=== PATIENT | female | born 1960 | race Caucasian/White ===

== ENCOUNTER 2016-08-12 01:50 | Inpatient (IN) | payer MEDICARE ==
[~2016-08-12] VITALS: Ht 162.6 cm; Wt 93.0 kg
[2016-08-12] VITALS (23 sets, daily range): BP systolic 99–130; BP diastolic 62–85; Ht 162.6 cm; Wt 93.0 kg
[~2016-08-12 01:50] MED LIST: ABILIFY15 MG PO; ACETAMINOPHEN325 MG PO; ACETAMINOPHEN500 M1 PO; ADVAIR 250/501 DISK INH; CALCIUM 600+D T1 TA1 PO; DALIRESP500 MCG PO; DEPAKOTE250 MG PO; FLUTICASONE PRO16 GM NASAL; HYDROCODONE-APA1 TAB PO; IPRAT-ALBUT 0.5-3 ML UPD; LEVAQUIN750 MG PO; MUCINEX DM ER1 EAC1 PO; PRAVACHOL40 MG PO; PREDNISONE10 MG PO; PRILOSEC20 MG PO; PROVENTIL HFA6.7 GM INH; SINGULAIR10 MG PO; SPIRIVA18 MCG INH; XANAX1 MG PO; ZOLOFT50 MG PO
[2016-08-12 02:32] LABS: BASOPHILS 0.4 % (0.0-2.0); EOSINOPHILS 0.2 % (0-7); HEMATOCRIT 47.7 % (36.0-48.0); IMMATURE GRANULOCYTES 0.4 % (0-5); LYMPHOCYTES 11.9 % (15-50); MCH 30.5 pg (26.0-34.0); MCHC 31.4 g/dL (31.0-37.0); MEAN PLATELET VOLUME 9.1 fL (7.4-10.4); MONOCYTES 7.6 % (2-11); NEUTROPHILS 79.5 % (40-80); PLATELET COUNT 142 10x3/uL (130-400); RBC 4.92 10x6/uL (4.00-5.40); RDW 13.7 % (11.5-14.5); WBC 8.5 10x3/uL (4.8-10.8)
[2016-08-12 02:45] LABS: ALBUMIN 3.3 g/dL (3.4-5.0); ALKALINE PHOSPHATASE 74 U/L (46-116); ALT (SGPT) 14 U/L (10-68); BILIRUBIN - TOTAL 0.45 mg/dL (0.2-1.3); CALC OSMOLALITY 274 mosm/kg (275-300); CALCIUM 9.4 mg/dL (8.5-10.1); CHLORIDE - SERUM 94 mmol/L (98-107); CREATININE - SERUM 0.5 mg/dL (0.6-1.3); GLUCOSE 106 mg/dL (74-106); PROTEIN - SERUM 7.7 g/dL (6.4-8.2); SODIUM 137 mmol/L (136-145); UREA NITROGEN 14 mg/dL (7-18); eGFR NON AFRICAN AMERICAN > 90 mL/min (90-120)
[2016-08-12 03:01] LABS: CKMB 3.1 U/L (0.0-3.6); CREATINE KINASE 84 UL (21-215); TROPONIN-I < 0.017 ng/mL (0.000-0.060)
--- NOTE | 2016-08-12 05:00 | NUR ---
0500: Pt rec'd from ER via STR and transferred to room 2310 x4 RNs and RT at bedside. Pt placed HOB 30 degrees at this time. Pt unable to follow commands. Pupils equal 2mm and sluggish with light stimulus. Pt with frequent coughing with movement. Pt breathing via 8.0fr ETT at 23cm lip line with Vent as per settings. Pt with frequent coughing and setting off vent peak pressure alarms. Diprivan started at this time as per orders to left a/c PIV. Lungs with wheezes and crackles heard throughout LFs with auscultation. MMP. Face red with coughing. In line sx produces small amount of clear sx. S1S2 regular SR 90-100 on CM. PPPx4=bilat. ABD soft with BSx4. OGT placed at this time and position confirmed with 30 cc air bolus and auscultaiton. Placed to LIS with immediate yellow/brown liquid return. 16fr Cummings cath placed at this time with sterile technique with immediate return of 150-200 cc of yellow UOP. Pt remains with bilateral soft wrist restraints to prevent accidental extubation. All monitors established and alarms intact. SR up x2, call light in reach, bed alarm on, and SCDs placed bilat.
[2016-08-12 05:38] LABS: APPEARANCE CLEAR (CLEAR); BILIRUBIN NEGATIVE (NEGATIVE); COLOR YELLOW (YELLOW); GLUCOSE NEGATIVE (NEGATIVE); KETONE NEGATIVE (NEGATIVE); LEUKOCYTE ESTERASE NEGATIVE (NEGATIVE); NITRITE NEGATIVE (NEGATIVE); PROTEIN NEGATIVE (NEGATIVE); UROBILINOGEN NORMAL (NORMAL)
--- NOTE | 2016-08-12 07:15 | NUR ---
REPORT REC'D AND CARE RESUMED, ETT TO VENTILATION AND SECURED, 100 %FIO2, SAT 99%, OGT TO LIWS WITH TRANSLUCENT DRAINAGE TO CANISTER, LT AC PIV WITH PROPOFAL INFUSING AT 50 MCG, NS AT 50 CC/HR, REYNOLDS TO GRAVITY WITH YELLOW DRAINAGE TO TUBING, SCD'S B/L, RESTRAINTS B/L, ASSESSMENT COMPLETE PER FLOWSHEET, ORAL CARE AND SUCTION COMPLETED, REPOSITIONED TO BACK WITH HEELS FLOATED, LOCALIZES PAIN, WILL CONTINUE WITH POC
--- NOTE | 2016-08-12 08:53 | NUR ---
PATIENT IS ON THE VENT AND SEDATED. SHE IS NOT ABLE TO ANSWER QUESTIONS AND THERE IS NO FAMILY HERE TO INTERVIEW. CM TO FOLLOW.
--- NOTE | 2016-08-12 08:55 | NUR ---
PATIENT IS ON THE VENT AND SEDATED. SHE IS NOT ABLE TO ANSWER QUESTIONS AND THERE IS NO FAMILY HERE TO INTERVIEW. TRIED TO CALL HER DAUGHTER, RITA, AT [phone] WHICH WAS NUMBER PROVIDED AND DID NOT GET AN ANSWER. CM TO FOLLOW.
--- NOTE | 2016-08-12 09:00 | NUR ---
AM MEDS GIVEN WITHOUT DIFFICULTY, NO VISITIORS AT THIS TIME
--- NOTE | 2016-08-12 11:00 | NUR ---
DAUGHTER RITA AT BEDSIDE, STATUS UPDATED, MEDICATIONS RECONCILED, COUNSELED WITH DR HENRY, NO OTHER NEEDS AT THIS TIME
--- NOTE | 2016-08-12 12:00 | NUR ---
NO ACUTE CHANGE FROM PREVIOUS ASSESSMENT. VSS, REPOSITIONED TO LEFT SIDE WITH PILLOW PROPPED TO BACK AND HEELS FLOATED
[2016-08-12] MEDS ORDERED: POTASSIUM CHLO10 ME1 PO (12:34)
[2016-08-12] MEDS ORDERED: FUROSEMIDE20 MG PO (12:35)
[2016-08-12] MEDS ORDERED: PROPAFENONE HC150 MG PO (12:36)
--- NOTE | 2016-08-12 12:48 | NUR ---
DAUGHTER HERE FOR VISIT, STATUS UPDATE, MEDICATIONS REVIEW, AND PASSWORD ESTABLISHED, DR HENRY COUNSELED WITH FAMILY.
--- NOTE | 2016-08-12 13:30 | NUR ---
RHYTMOL 150 MG PO GIVEN VIA OGT PER ORDER
--- NOTE | 2016-08-12 15:00 | NUR ---
NO ACUTE CHANGE FROM PREVIOUS ASSESSMENT, VSS, CONITNUES ON VENT IN AC MODE, ORAL CARE AND SUCTION COMPLETED, REPOSITIONED TO RIGHT SIDE WITH PILLOW PROPPED TO BACK AND HEELS FLOATED
--- NOTE | 2016-08-12 16:30 | NUR ---
I AND O'S COMPLETED WITHOUT DIFFICULTY
--- NOTE | 2016-08-12 18:00 | NUR ---
PC FROM SISTER, PASSWORD OBTAINED, STATUS UPDATE GIVEN, VOICES NO OTHER NEEDS AT THIS TIME
--- NOTE | 2016-08-12 18:15 | NUR ---
RT AT BEDSIDE, UPDRAFT GIVEN, VSS, CONTINUES ON AC MODE WITH 40% FIO2, ORAL CARE AND SUCTION COMPLETED, AROUSES TO TACTILE STIMULI, WILL CONTINUE WITH POC
--- NOTE | 2016-08-12 18:33 | NUR ---
PASTOR LANGFORD FROM [facility] AT BEDSIDE, STATUS UPDATED, PRAYED WITH PATIENT, NO OTHER NEEDS AT THIS TIME
--- NOTE | 2016-08-12 19:30 | NUR ---
Assessment complete. See flowsheet. Pt sedated to haroldo 2 with Propofol sedation infusing @ 60mcg/kg/min (32cc/hr) upon entrance into room. Pt does not open eyes or attempt communication. Pupils opened and examined size 4 bilaterally ERRL. Pt does not move extremities. 8.0FR OET tube secure 23cm @ lip line to ventilator set A/C Rate 14 TV 500 FiO2 @ 40% PEEP 5.0. Lung sounds clear to auscultation with diminished lower lobes. HR SR with S1S2 auscultated. All peripheral pulses +2 with capillary refill <3 seconds. Generalized edema noted to all extremitties. Left A/C PIV site CDI no s/s infection or infiltration with NS infusing @ 75cc/hr with Propofol sedation. OGT to LIWS retrieving green gastric content of a small amount. Abdomen obese and soft with BS present to all quadrants. Cummings catheter secure retrieving clear/yellow urine. SCDs secure and turned on. ROM completed to all extremities. Bilat soft wrist restraints applied after pt pulled up in bed and positioned to left side with HOB elevated to 30 degrees and arms/heels bridged. No s/s pain or distress. Oral care completed with mouth moisturizer applied. Diprovan IV tubing change completed. CPOC.
--- NOTE | 2016-08-12 21:30 | NUR ---
PM medications administered. See OCT. Pt repositioned to right side with HOB @ 30 degrees. Arms and heels remain bridged. Oral care completed. VSS. CPOC.
--- NOTE | 2016-08-12 23:30 | NUR ---
Reassessment complete. See flowsheet. Pt remains orally intubated with no ventilator setting changes to note from previous assessment. Propofol sedation infusing @ 60mcg/kg/min with haroldo 2 sedation maintained. NO IVF changes to note. PIV site CDI no s/s infection or infiltration. Lung sounds clear to all renner with diminished lower lobes. HR SR with S1S2 auscultated. All peripheral pulses remain +2 with capillary refill <3 seconds. OGt secure to LIWS. BS remain + to all quadrants. Cummings secure. Pt repositioned to back with HOB @ 30 degrees. Arms and heels bridged. SCDs secure. BILAT soft wrist restraints secured after ROM to all extremities. Generalized edema persists. Linens clean/dry. NO s/s pain or distress. No other changes to note. CPOC.
[2016-08-13] VITALS (24 sets, daily range): BP systolic 92–128; BP diastolic 54–85
--- NOTE | 2016-08-13 01:30 | NUR ---
Pt repositioned to left side. HOB @ 30 degrees. Oral care completed with mouth moisturizer applied. No s/s pain or distress. CPOC.
--- NOTE | 2016-08-13 03:30 | NUR ---
Reassessment complete. See flowsheet. Pt remains sedated to haroldo 2 with NO IVF changes to note from previous assessment. OET tube secure with no VENT setting changes to note. Lung sounds present crackles to all renner with diminished lower lobes. Pt OET inline lavaged and suctioned with ellison sputum retrieved and strong, persistent cough triggered. Lidocaine lavage per Effie RT. HR SR. BS+. OGT secure to LISA. Cummings secure retrieving clear/yellow urine. Pt positioned to back for AM CXR. Arms and heels rebridged. Bilat soft wrist restraints secure. CPOC.
--- NOTE | 2016-08-13 03:35 | NUR ---
Respiratory rate increased to 18/min after ABG results.
--- NOTE | 2016-08-13 05:30 | NUR ---
Pt positioned to right side. Oral care completed with mouth moisturizer applied. No s/s pain or distress.
[2016-08-13 05:39] LABS: BASOPHILS 0 % (0.0-2.0); EOSINOPHILS 0 % (0-7); HEMATOCRIT 41.1 % (36.0-48.0); HEMOGLOBIN 13.2 g/dL (12-16); IMMATURE GRANULOCYTES 0.4 % (0-5); LYMPHOCYTES 10.1 % (15-50); MCH 30.2 pg (26.0-34.0); MCHC 32.1 g/dL (31.0-37.0); MEAN PLATELET VOLUME 9.8 fL (7.4-10.4); MONOCYTES 4.8 % (2-11); NEUTROPHILS 84.7 % (40-80); PLATELET COUNT 146 10x3/uL (130-400); RBC 4.37 10x6/uL (4.00-5.40); RDW 13.5 % (11.5-14.5); WBC 7.9 10x3/uL (4.8-10.8)
[2016-08-13 05:55] LABS: MCV 94.1 fL (80.0-100.0)
[2016-08-13 06:01] LABS: CALC OSMOLALITY 279 mosm/kg (275-300); CALCIUM 8.3 mg/dL (8.5-10.1); CHLORIDE - SERUM 97 mmol/L (98-107); GLUCOSE 128 mg/dL (74-106); PHOSPHOROUS 3.5 mg/dL (2.5-4.9); POTASSIUM - SERUM 3.8 mmol/L (3.5-5.1); SODIUM 138 mmol/L (136-145); UREA NITROGEN 17 mg/dL (7-18)
[2016-08-13 06:05] LABS: CREATININE - SERUM 0.7 mg/dL (0.6-1.3); eGFR NON AFRICAN AMERICAN > 90 mL/min (90-120)
--- NOTE | 2016-08-13 07:00 | NUR ---
REC'D CARE OF PT.
--- NOTE | 2016-08-13 08:24 | NUR ---
SURESTEP REYNOLDS CARE PROVIDED.
--- NOTE | 2016-08-13 10:38 | NUR ---
REMAINS SEDATED ON VENT. SULLIVAN. PPP. CPOC.
--- NOTE | 2016-08-13 10:47 | NUR ---
REASSESSMENT COMPLETED PER FLOW SHEET. NOACUTE CHANGES. REMAINS SEDATED RESTING ON VENT. VSS. DEIPRIVAN BEING TITRATED TO EFFECT. CPOC.
--- NOTE | 2016-08-13 16:32 | NUR ---
PULMOCARE INITIATED AT 20CC PER HOUR VIA NGT. PLACEMENT VERIFIED WITH SMALL AIR BOLUS AUSCULTATED OVER GASTRIC REGION.
--- NOTE | 2016-08-13 18:30 | NUR ---
FAMILY AT BEDSIDE. UPDATED.
--- NOTE | 2016-08-13 19:00 | NUR ---
0: Pt rec'd resting HOB 30 degrees with eyes closed. Open briefly with painfull stimuli. Pt does not follow commands. Pupils ELHAM+ bilat. Pt with frequent coughing. Breathing ETT 8.0/23CM with Vent as per flow sheet. Pt RR 18x with SPO2 96%. In line sx produces small amount of thick white sx. Lungs clear apices with expiratory wheezes heard throughout lung feilds. S1S2 Regular SR 82 bpm. Left AC PIV patent with NS and Diprivan infusing. ABD soft NT BSx4 hypoactive. OGT with Pulmocare 20 cc/hr. Residual <10cc ret'd. Cummings to gravity with >30 cc/hr light green UOP. All alarms on and intact.
--- NOTE | 2016-08-13 21:00 | NUR ---
2100: Pt repositioned for comfort at this time with extrem off bed with pillow supports. Pt remains SR 80's on CM. Oral care done. Pt with frequent coughing. Pt face turns red and appears that pt is choking with oral care/sx'ing. No change in Diprivan at this time; remains at 70 mcg/kg/min.
[2016-08-14] VITALS (24 sets, daily range): BP systolic 100–123; BP diastolic 52–93
--- NOTE | 2016-08-14 | NUR ---
0000: No change in pt RESP/CV/NV status.
--- NOTE | 2016-08-14 02:30 | NUR ---
0230: Pt bath and linen change done at this time. Pt repositioned for comfort with extrem off bed with pillow supports. Oral care done and TF line changed. Cummings care done. No change in pt RESP/CV/NV status. Pt remains SR 70's on CM, Intubated with RR 18x with SPO2 97%, and no change in IVF/UOP.
--- NOTE | 2016-08-14 04:00 | NUR ---
0400: Pt remains on sedated on vent. Pt with occasional periods of coughing. During episode pt is red in color, choking and in line sx produces only small amount of sx. No change in IVF/UOP at this time.
[2016-08-14 04:36] LABS: BASOPHILS 0 % (0.0-2.0); EOSINOPHILS 0 % (0-7); HEMATOCRIT 41.8 % (36.0-48.0); HEMOGLOBIN 13.2 g/dL (12-16); IMMATURE GRANULOCYTES 0.4 % (0-5); LYMPHOCYTES 12.5 % (15-50); MCH 30.1 pg (26.0-34.0); MCHC 31.6 g/dL (31.0-37.0); MCV 95.2 fL (80.0-100.0); MEAN PLATELET VOLUME 9.8 fL (7.4-10.4); NEUTROPHILS 83.1 % (40-80); PLATELET COUNT 143 10x3/uL (130-400); RBC 4.39 10x6/uL (4.00-5.40); RDW 13.7 % (11.5-14.5); WBC 7.6 10x3/uL (4.8-10.8)
[2016-08-14 04:48] LABS: CALC OSMOLALITY 285 mosm/kg (275-300); CALCIUM 9.3 mg/dL (8.5-10.1); CARBON DIOXIDE 36.4 mmol/L (21.0-32.0); CHLORIDE - SERUM 100 mmol/L (98-107); CREATININE - SERUM 0.7 mg/dL (0.6-1.3); GLUCOSE 127 mg/dL (74-106); MAGNESIUM - SERUM 2.4 mg/dL (1.8-2.4); POTASSIUM - SERUM 4.1 mmol/L (3.5-5.1); SODIUM 141 mmol/L (136-145); UREA NITROGEN 20 mg/dL (7-18); eGFR NON AFRICAN AMERICAN > 90 mL/min (90-120)
[2016-08-14 04:58] LABS: PHOSPHOROUS 4.4 mg/dL (2.5-4.9)
--- NOTE | 2016-08-14 05:15 | NUR ---
0515: Pt reposition for comfort.
--- NOTE | 2016-08-14 07:00 | NUR ---
REC'D CARE OF PT. SEDATED ON VENT.
--- NOTE | 2016-08-14 08:32 | NUR ---
INITIAL ASSESSMENT COMPLETED PER FLOW SHEET.
--- NOTE | 2016-08-14 09:56 | NUR ---
INCREASED TF FROM 20 TO 30CC PER HOUR. NO RESIDUALS.
--- NOTE | 2016-08-14 10:22 | NUR ---
NO ACUTE CHANGES IN ASSESSMENT PER FLOW SHEET. REMAINS SEDATED ON VENT.VSS.
--- NOTE | 2016-08-14 14:00 | NUR ---
RESTING WITH EYES CLOSED. VSS. REMAINS SEDATED ON VENT. WAKES UP IMMEDIATLEY AND TRIES TO GET OOB AND PULL ETT WHEN DIPRIVAN IS TURNED OFF.
--- NOTE | 2016-08-14 14:22 | NUR ---
REASSESSMENT COMPLETED PER FLOW SHEET. NO ACUTE CHANGES.
--- NOTE | 2016-08-14 15:17 | NUR ---
FULL LINEN CHANGED AND BATH GIVEN.
--- NOTE | 2016-08-14 17:55 | NUR ---
Nutrition follow-up: Intubated, sedated Pulmocare infusing @ 30 ml/hr via NGT Labs noted Wt: 206# Recommend advancing Tf to goal rate of 40 ml/hr RDN following.
--- NOTE | 2016-08-14 19:30 | NUR ---
ASSESSMENT COMPLETE. S1S2; NSR SHOWING ON MONITOR. SEDATED ON VENT. ETT/OGT PRESENT. PERRLA 3MM BRISK. RADIAL AND PEDAL PULSES PALPATED. EXPIRATORY WHEEZE BILATERALLY IN UPPER LOBES; DIMINISHED BILATERALLY IN LOWER LOBES. BOWEL SOUNDS ACTIVE X4. REYNOLDS IN PLACE. SCRATCHES BILATERALLY ON ARMS. LEFT FOREARM PIV. TRACE EDEMA IN EXTREMITIES X4.
--- NOTE | 2016-08-14 22:10 | NUR ---
DECREASE IN BP. DECREASED PT DIPRIVAN TO 65MCG FROM 75MCG.
--- NOTE | 2016-08-14 22:50 | NUR ---
DECREASE IN BP. DECREASED DIPRIVAN TO 55MCG FROM 65MCG.
--- NOTE | 2016-08-14 23:15 | NUR ---
REASSESSMENT COMPLETE. NO CHANGES FROM PREVIOUS ASSESSMENT.
--- NOTE | 2016-08-14 23:34 | NUR ---
PT HAS INCREASE IN AGIATION; DESPITE BEING ON DIPRIVAN. GAVE ATIVAN PER ORDERS. SEE EMAR FOR DETAILS.
[2016-08-15] VITALS (24 sets, daily range): BP systolic 97–120; BP diastolic 53–72
--- NOTE | 2016-08-15 03:00 | NUR ---
REASSESSMENT COMPLETE. NO CHANGES FROM PREVIOUS ASSESSMENT.
[2016-08-15 05:27] LABS: BASOPHILS 0 % (0.0-2.0); EOSINOPHILS 0 % (0-7); HEMATOCRIT 40.9 % (36.0-48.0); HEMOGLOBIN 12.7 g/dL (12-16); IMMATURE GRANULOCYTES 0.3 % (0-5); LYMPHOCYTES 10.7 % (15-50); MCHC 31.1 g/dL (31.0-37.0); MCV 96.7 fL (80.0-100.0); MEAN PLATELET VOLUME 9.6 fL (7.4-10.4); MONOCYTES 4.2 % (2-11); NEUTROPHILS 84.8 % (40-80); PLATELET COUNT 142 10x3/uL (130-400); RBC 4.23 10x6/uL (4.00-5.40); WBC 7.2 10x3/uL (4.8-10.8)
[2016-08-15 05:29] LABS: CALC OSMOLALITY 285 mosm/kg (275-300); CALCIUM 8.5 mg/dL (8.5-10.1); CARBON DIOXIDE 38.3 mmol/L (21.0-32.0); CHLORIDE - SERUM 103 mmol/L (98-107); CREATININE - SERUM 0.6 mg/dL (0.6-1.3); GLUCOSE 131 mg/dL (74-106); POTASSIUM - SERUM 4.3 mmol/L (3.5-5.1); SODIUM 141 mmol/L (136-145); UREA NITROGEN 21 mg/dL (7-18); eGFR NON AFRICAN AMERICAN > 90 mL/min (90-120)
[2016-08-15 06:25] LABS: MAGNESIUM - SERUM 2.4 mg/dL (1.8-2.4); PHOSPHOROUS 4.4 mg/dL (2.5-4.9)
--- NOTE | 2016-08-15 07:00 | NUR ---
REPORT RECIEVED, INTITIAL ASSESSMENT COMPLETE, PLEASE SEE FLKOW SHEETS FOR DETAILS. ORAL CARE AND TURNING PROVIDED. SBP 93, DECREASED DIPROVAN TO 58 MCG/KG/MIN. WILL CONTINUE TO MONITOR.
--- NOTE | 2016-08-15 09:03 | NUR ---
TURNING AND ORAL CARE PROVIDED. VSS AT THIS TIME, WILL CONTINUE TO MONITOR.
--- NOTE | 2016-08-15 09:50 | NUR ---
PROVIDED ORAL SUCTIONING GURGLING PRESENT AT BACK OF THROAT. PT OPENED EYES ON HER OWN, WILL CONTINUE TO MONITOR.
--- NOTE | 2016-08-15 10:15 | NUR ---
TUBE FEEDING BAG REPLACED.
--- NOTE | 2016-08-15 10:44 | NUR ---
REASSESSMENT COMPLETE, PLEASE SEE FLOW SHEETS FOR DETAILS. ORAL CARE AND TURNING PROVIDED. VSS AT THIS TIME, WILL CONTINUE TO MONITOR.
--- NOTE | 2016-08-15 12:51 | NUR ---
ORAL CARE AND TURNING PROVIDED. REYNOLDS CARE PROVIDED. VSS AT THIS TIME, WILL CONTINUE TO MONITOR.
--- NOTE | 2016-08-15 15:42 | NUR ---
REASSESSMENT COMPLETE, PLEASE SEE FLOW SHEETS FOR DETAILS. ORAL CARE AND TURNING PROVIDED. VSS AT THIS TIME, WILL CONTINUE TO MONITOR.
--- NOTE | 2016-08-15 16:46 | NUR ---
ORAL CARE AND TURNING PROVIDED. VSS AT THIS TIME, WILL CONTINUE TO MONITOR.
--- NOTE | 2016-08-15 19:00 | NUR ---
ASSESSMENT COMPLETE. S1S2. NSR SHOWING ON MONITOR. PT SEDATED ON VENT. RR CRACKLES BILATERALLY IN UPPER LOBES; DIMINISHED BILATERALLY IN LOWER LOBES. BRUISING/SCRATCHES TO BILATERAL ARMS. LEFT AC PIV. OGT WITH PULMOCARE @ 30ML/HR. PERRLA; 3MM BRISK. REYNOLDS IN PLACE; GREEN URINE IN COLLECTION BAG. SCD IN PLACE.
--- NOTE | 2016-08-15 21:15 | NUR ---
FAMILY AT BEDSIDE. UPDATE GIVEN.
--- NOTE | 2016-08-15 23:00 | NUR ---
REASSESSMENT COMPLETE. NO CHANGES FROM PREVIOUS ASSESSMENT.
[2016-08-16] VITALS (24 sets, daily range): BP systolic 91–112; BP diastolic 48–66
--- NOTE | 2016-08-16 01:00 | NUR ---
PATIENT RESTING WITH EYES CLOSED ON VENT, NO CHANGES FROM PREVIOUS ASSESSMENT. ORAL CARE/SUCTIONING PROVIDED, REPOSITIONED FOR COMFORT. NO OTHER NEEDS AT THIS TIME, WILL CONTINUE TO MONITOR.
[2016-08-16 03:31] LABS: BASOPHILS 0 % (0.0-2.0); EOSINOPHILS 0 % (0-7); HEMATOCRIT 40.5 % (36.0-48.0); HEMOGLOBIN 12.5 g/dL (12-16); IMMATURE GRANULOCYTES 0.2 % (0-5); LYMPHOCYTES 16.3 % (15-50); MCH 29.8 pg (26.0-34.0); MCHC 30.9 g/dL (31.0-37.0); MCV 96.7 fL (80.0-100.0); MEAN PLATELET VOLUME 9.8 fL (7.4-10.4); MONOCYTES 5.1 % (2-11); NEUTROPHILS 78.4 % (40-80); PLATELET COUNT 146 10x3/uL (130-400); RBC 4.19 10x6/uL (4.00-5.40); RDW 13.9 % (11.5-14.5); WBC 6.3 10x3/uL (4.8-10.8)
--- NOTE | 2016-08-16 03:37 | NUR ---
REASSESSMENT COMPLETE, NO CHANGES FROM PREVIOUS ASSESSMENT. PATIENT ON VENT SIMV @ 35%, CRACKLES AND INSPIRATORY WHEEZE NOTED UPPER WITH DIMINISHED LOWER. SUCTIONING AND ORAL CARE PROVIDED, PATIENT REPOSITIONED FOR COMFORT. NO OTHER NEEDS AT THIS TIME, WILL CONTINUE TO MONITOR.
[2016-08-16 03:56] LABS: CALC OSMOLALITY 282 mosm/kg (275-300); CALCIUM 9.1 mg/dL (8.5-10.1); CARBON DIOXIDE 36.8 mmol/L (21.0-32.0); CHLORIDE - SERUM 101 mmol/L (98-107); CREATININE - SERUM 0.7 mg/dL (0.6-1.3); GLUCOSE 118 mg/dL (74-106); MAGNESIUM - SERUM 2.5 mg/dL (1.8-2.4); PHOSPHOROUS 4.3 mg/dL (2.5-4.9); POTASSIUM - SERUM 4.3 mmol/L (3.5-5.1); SODIUM 140 mmol/L (136-145); UREA NITROGEN 22 mg/dL (7-18); eGFR NON AFRICAN AMERICAN > 90 mL/min (90-120)
--- NOTE | 2016-08-16 05:10 | NUR ---
FEED RATE INCREASED FROM 40-50ML/HR, RESIDUAL CHECKED 18ML ASPIRATED AND RETURNED. ORAL CARE AND SUCTIONING PROVIDED, PATIENT REPOSITIONED FOR COMFORT. WILL CONTINUE TO MONITOR.
--- NOTE | 2016-08-16 08:56 | NUR ---
0700 PT SEDATED AND OPENING EYES TO VOICE. LOCALIZES PAIN. UNABLE TO FOLLOW COMMANDS. NEW PIV SITED, 20 GA IN LEFT FOREARM WITH NS AT 75ML/HR. NORMAL SINUS ON MONITOR, S1S2 NOTED. ACTIVE BOWEL SOUNDS X4. PT REPOSITIONED IN BED FOR COMFORT. ARMS PROPPED UP ON PILLOWS TO DECREASE SWELLING. BILAT WRIST RESTRAINTS SECURE. OGT WITH TUBE FEEDINGS INFUSING AT 50, NO RESIDUAL NOTED. VITAL SIGNS STABLE.
--- NOTE | 2016-08-16 09:58 | NUR ---
NUTRITION MONITORING & EVAL CHART REVIEWED, PULMOCARE AT 50 CC/HR. DIPRIVAN @ 28 CC/HR. WILL REDUCE TUBE FEED RATE TO 40 CC/HR. RD FOLLOWING
--- NOTE | 2016-08-16 10:12 | NUR ---
0900 TUBE FEEDING BAGS CHANGED AND RATE DECREASED TO 40ML/HR. PT OPENING EYES AND SLUGGISHLY MOVING EXTREMITIES. WILL CONTINUE TO MONITOR SEDATION STATUS
--- NOTE | 2016-08-16 11:17 | NUR ---
[address] JAIMES VERBAL ORDER TO ASSESS PT TOLERANCE ON SIMV. PT WITHDRAWING WITH PAIN, EYES OPEN AND APPEARS EXTREMELY UNCOMFORTABLE. WILL TITRATE NEEDED
--- NOTE | 2016-08-16 13:00 | NUR ---
1300 SEDATION TURNED BACK ON DUE TO HR INCREASE, FREQUENT COUGHING, AND CRYING. WILL TITRATE TOLERATED. VITAL SIGNS STABLE
--- NOTE | 2016-08-16 13:18 | NUR ---
* Is the patient Alert and Oriented? No 0 * How many steps to enter\exit or inside your home? 12 0 * PCP DR. DEL REAL 0 * Pharmacy [facility] [address] 0 * Preadmission Environment Home Alone 0 * ADLs Independent 0 * Equipment Nebulizer Oxygen 0 * Other Equipment PATIENT HAS O2 AND NEBULIZER AT HOME THAT IS PROVIDED BY [facility]. 0 * List name and contact numbers for known caregivers / representatives who currently or will assist patient after discharge: DAUGHTER: RITA OLIVA [phone] 0 * Community resources currently utilized None 0 * Additional services required to return to the preadmission environment? Yes 0 * Can the patient safely return to the preadmission environment? No 0 * Has this patient been hospitalized within the prior 30 days at any hospital? No 0 PATIENT REMAINS ON THE VENT. SHE IS NOT ABLE TO ANSWER QUESTIONS. I HAVE PHONED PATIENT'S DAUGHTER, RITA, AND SPOKE WITH HER REGARDING HER MOTHER. SHE STATES THAT HER MOTHER LIVES ALONE. HER PCP IS DR. DEL REAL. SHE GETS HER MEDS FROM [facility] [address]. SHE HAS O2 AND A NEBULIZER PROVIDED BY [facility]. SHE STATES HER MOTHER HAD HOME HEALTH ABOUT 2 YRS AGO BUT SHE DOES NOT RECALL WHO THE AGENCY WAS. THERE ARE 12 STEPS TO ENTER HER APARTMENT. PATIENT MAY BENEFIT FROM REHAB AT DISCHARGE. HER DAUGHTER SAID SHE DOES NOT KNOW IF HER MOTHER WILL DO REHAB OR NOT. I TOLD HER WE WOULD REEVALUATE HER NEEDS CLOSER TO DISCHARGE. CM TO FOLLOW.
--- NOTE | 2016-08-16 15:41 | NUR ---
1500 PT RESTING COMFORTABLY AT THIS TIME. REMAINS ON SIMV. WILL CONTINUE TO MONITOR PT. VITAL SIGNS STABLE
--- NOTE | 2016-08-16 17:04 | NUR ---
1700 PT COUGHING FREQUENTLY AND COLOR TURNING RED DUE TO STRAINING. PROPOFOL INCREASED TO 50 MCG. WILL CONTINUE TO TITRATE NEEDED
--- NOTE | 2016-08-16 19:20 | NUR ---
ASSESSMENT COMPELTE PER FLOW SHEET. VSS. REFER TO FLOW SHEET FOR FINDNIGS. WILL CONTINUE TO MONITOR.
--- NOTE | 2016-08-16 21:20 | NUR ---
FAMILY AT BEDSIDE. GIVEN UPDATE. VSS. WILL CONTINUE TO MONITOR.
--- NOTE | 2016-08-16 23:22 | NUR ---
REASSESSMENT COMPELTE PER FLOW SHEET. VSS NO NEW CHANGES WILL CONTINUE CHANTELL ONIOTR.
[2016-08-17] VITALS (24 sets, daily range): BP systolic 86–115; BP diastolic 50–77
--- NOTE | 2016-08-17 01:20 | NUR ---
COMPLETE BB LINEN CHANGE ADM. NO NEW CHANGES AT THIS TIME.
--- NOTE | 2016-08-17 02:28 | NUR ---
VENT ALARMING. INLINE/ORAL SUCTION/CARE ADM. PT CALM AND COOROPERATIVE. NEEDS MET.
--- NOTE | 2016-08-17 03:19 | NUR ---
REASSESSMENT COMPLETE PER FLOW SHEET. NO NEW CHANGES AT THIS TIME. VSS. RADIOLOGY AT BEDSIDE. WILL CONTINUE TO MONITOR.
[2016-08-17 04:02] LABS: BASOPHILS 0 % (0.0-2.0); EOSINOPHILS 0.1 % (0-7); HEMOGLOBIN 13.4 g/dL (12-16); IMMATURE GRANULOCYTES 0.4 % (0-5); LYMPHOCYTES 9.3 % (15-50); MCH 30.1 pg (26.0-34.0); MCHC 30.5 g/dL (31.0-37.0); MEAN PLATELET VOLUME 9.9 fL (7.4-10.4); MONOCYTES 6.2 % (2-11); PLATELET COUNT 148 10x3/uL (130-400); RBC 4.45 10x6/uL (4.00-5.40)
[2016-08-17 04:07] LABS: MCV 98.9 fL (80.0-100.0); WBC 11.1 10x3/uL (4.8-10.8)
[2016-08-17 04:17] LABS: CALC OSMOLALITY 287 mosm/kg (275-300); CALCIUM 9.2 mg/dL (8.5-10.1); CHLORIDE - SERUM 101 mmol/L (98-107); CREATININE - SERUM 0.6 mg/dL (0.6-1.3); GLUCOSE 118 mg/dL (74-106); MAGNESIUM - SERUM 2.4 mg/dL (1.8-2.4); PHOSPHOROUS 4.1 mg/dL (2.5-4.9); POTASSIUM - SERUM 4.1 mmol/L (3.5-5.1); SODIUM 142 mmol/L (136-145); UREA NITROGEN 24 mg/dL (7-18); eGFR NON AFRICAN AMERICAN > 90 mL/min (90-120)
[2016-08-17 04:21] LABS: CARBON DIOXIDE 40.5 mmol/L (21.0-32.0)
--- NOTE | 2016-08-17 07:15 | NUR ---
REC'D REPORT AND RESUMED CARE, ETT TO VENTINLATION AND SECURED, IN SIMV MODE, AT A RATE OF 10, WITH 35% FIO2, SEDATED DOES NOT OPEN EYES OR FOLLOW COMMANDS, LEFT AC PIV WITH PROPOFAL 50 MCG, LEFT FA PIV IWTH NS AT 75 CC//HR, REYNOLDS TO GRAVITY WITH GREEN DRAINAGE TO BAG, SCD'S B/L, ASSESSMENT COMPLETE PER FLOWSHEET, VSS, OGT WITH PULMOCARE INFUSING AT 40 CC/HR, RESIDUAL CHECK 20 CC, REPOSITIONED TO BACK WITH HEELS FLOATED.
--- NOTE | 2016-08-17 09:05 | NUR ---
CHANGE TO SMIV RATE OF 4, PROPOFAL TITRATED TO 25 MCG
--- NOTE | 2016-08-17 09:34 | NUR ---
CHANGE TO CPAP ON VENTILATOR BY RT, RESP 22
--- NOTE | 2016-08-17 10:29 | NUR ---
MORE AWAKE, FOLLOWING COMMANDS, PROPOFAL TITRATED TO 15 MCG
--- NOTE | 2016-08-17 11:00 | NUR ---
NO ACUTE CHANGE FROM PREVIOUS, VSS, SEDATION TO 15 MCG
--- NOTE | 2016-08-17 13:15 | NUR ---
VENT ALARMING, LOTS OF ORAL SECRETION, OGT PULLED OUT, ORAL AND INLINE SUCTION COMPLETED, OGT REINSERTED PER PROTOCAL AND PLACEMENT CHECK BY AIR BOLUS, SECURED WITH TAPE TO ETT
--- NOTE | 2016-08-17 15:00 | NUR ---
RESP 42, PROPOFAL SEDATION TITRATED TO 50 MCG, CHANGED BACK TO ASSIST CONTROL RATE OF 12 VY RT, FAMILY AT BEDSIDE, STATUS UPDATED, VOICES NO OTHER NEEDS AT THIS TIME, NO OTHER ACUTE CHANGE FROM PREVIOUS
--- NOTE | 2016-08-17 17:15 | NUR ---
TF PUMP BEEPING WITH ERROR MESSAGE OF CLOG, FLUSHED LINE WITH 30 CC WATER
--- NOTE | 2016-08-17 19:38 | NUR ---
REPORT RECIEVED. ASSESSMENT COMPELTE PER FLOW SHEET. VSS. NO NEW CHANGES AT THIS TIME. WILL CONTINUE TO MONIOTR.
--- NOTE | 2016-08-17 23:21 | NUR ---
REASSESSMENT COMPELETE PER FLOW SHEET.VSS NO NEW CHANGES AT THIS TIME. [facility] TO MONITOR.
[2016-08-18] VITALS (23 sets, daily range): BP systolic 80–106; BP diastolic 51–66
--- NOTE | 2016-08-18 01:17 | NUR ---
VENT ALARMING. ORAL/ENDOTRACH CARE ADM. PT NOW CALM NEEDS MET
--- NOTE | 2016-08-18 03:19 | NUR ---
REASSESSMENT COMPELTE PER FLOW SHEET. NO NEW FINDGINS AT THIS TIME. WILL CONTINUE TO MONITOR.
[2016-08-18 04:18] LABS: BASOPHILS 0 % (0.0-2.0); EOSINOPHILS 0 % (0-7); HEMOGLOBIN 13.7 g/dL (12-16); IMMATURE GRANULOCYTES 0.3 % (0-5); LYMPHOCYTES 16.1 % (15-50); MCH 29.9 pg (26.0-34.0); MCHC 31.1 g/dL (31.0-37.0); MEAN PLATELET VOLUME 10.5 fL (7.4-10.4); MONOCYTES 5.3 % (2-11); NEUTROPHILS 78.3 % (40-80); PLATELET COUNT 155 10x3/uL (130-400); RBC 4.58 10x6/uL (4.00-5.40); RDW 13.5 % (11.5-14.5); WBC 9.8 10x3/uL (4.8-10.8)
[2016-08-18 04:37] LABS: MCV 96.1 fL (80.0-100.0)
[2016-08-18 04:41] LABS: CALC OSMOLALITY 284 mosm/kg (275-300); CALCIUM 9.5 mg/dL (8.5-10.1); CARBON DIOXIDE 35.6 mmol/L (21.0-32.0); CHLORIDE - SERUM 102 mmol/L (98-107); CREATININE - SERUM 0.6 mg/dL (0.6-1.3); GLUCOSE 111 mg/dL (74-106); MAGNESIUM - SERUM 2.3 mg/dL (1.8-2.4); PHOSPHOROUS 4.1 mg/dL (2.5-4.9); SODIUM 141 mmol/L (136-145); UREA NITROGEN 22 mg/dL (7-18); eGFR NON AFRICAN AMERICAN > 90 mL/min (90-120)
--- NOTE | 2016-08-18 06:36 | NUR ---
F/E PROTOCOL REVIEWED. NO INTERVENTIONS NEEDED AT THIS TIME. WILL CONTINUE TO MONITOR.
--- NOTE | 2016-08-18 08:33 | NUR ---
0830- SEDATION DECREASED TO 10MCG/KG/MIN. PT AWAKE AND CALM, FOLLOWING COMMAND. VENT SETTINGS ARE CPAP BY RT AT PRESENT.
--- NOTE | 2016-08-18 09:28 | NUR ---
NUTRITION MONITORING & EVAL CHART REVIEWED. TUBE FEEDS CURRENTLY OFF FOR POSSIBLE EXTUBATION. WILL MONITOR PT PROGRESS. PROVIDE DIET IF APPROPRIATE. RD FOLLOWING
[2016-08-18 09:54] LABS: ALBUMIN 3.1 g/dL (3.4-5.0); BILIRUBIN - DIRECT 0.07 mg/dL (0.00-0.30); BILIRUBIN - INDIRECT 0.23 mg/dL (0.00-1.00); BILIRUBIN - TOTAL 0.3 mg/dL (0.2-1.3); PROTEIN - SERUM 6.9 g/dL (6.4-8.2)
--- NOTE | 2016-08-18 19:05 | NUR ---
REPORT RECEIVED, PATIENT IS ON VENT AND SEDATED WITH PROPOFOL WITH A RATE OF 40. PATIENT OPENS EYES SPONTANEOUSLY AND FOLLOWS COMMANDS. CRACKLES HEARD IN UPPER LOBES OF LUNGS, DIMINISHED IN LOWER. S1S2 NOTED WITH A RATE OF 93, NORMAL SINUS ON MONITOR. BOWEL SOUNDS ACTIVE. OG TUBE INFUSING PULMOCARE AT 40MLS/HR. NO RESIDUALS. REYNOLDS CATHETER DRAINING TO GRAVIY. GENERALIZED EDEMA AND +2 PULSES NOTED IN ALL EXTREMITIES. PIV IN RH AND RAC. BOTH C/D/I WITH NO REDNESS. SCDS REMOVED FOR SKIN INTEGRITY ASSESSMENT AND WILL REPLACE IN 30 MINUTES. SEE ASSESSMENT FLOWSHEET FOR MORE DETAILS.
--- NOTE | 2016-08-18 21:00 | NUR ---
FAMILY AT BEDSIDE, UPDATE WAS GIVEN. DENIES FURHTER NEED AT THIS TIME. PATIENT'S VSS, WILL CONTINUE TO MONITOR.
--- NOTE | 2016-08-18 23:00 | NUR ---
REASSESSMENT COMPLETE. NO CHANGES AT THIS TIME. VSS, WILL CONTINUE TO MONITOR.
[2016-08-19] VITALS (23 sets, daily range): BP systolic 83–109; BP diastolic 50–64
--- NOTE | 2016-08-19 01:00 | NUR ---
PT RESTING QUIETLY IN BED, VSS.
--- NOTE | 2016-08-19 02:30 | NUR ---
BED BATH GIVEN, COMPLETE LINEN CHANGE. PATIENT TOLERATED WELL.
--- NOTE | 2016-08-19 03:00 | NUR ---
REASSESSMENT COMPLETE, NO CHANGES AT THIS TIME.
--- NOTE | 2016-08-19 05:00 | NUR ---
VSS, WILL CONTINUE TO MONITOR.
[2016-08-19 05:13] LABS: BASOPHILS 0 % (0.0-2.0); EOSINOPHILS 0.2 % (0-7); HEMATOCRIT 43.5 % (36.0-48.0); HEMOGLOBIN 13.7 g/dL (12-16); IMMATURE GRANULOCYTES 0.4 % (0-5); MCHC 31.5 g/dL (31.0-37.0); MCV 95.2 fL (80.0-100.0); MEAN PLATELET VOLUME 10.2 fL (7.4-10.4); MONOCYTES 4.3 % (2-11); NEUTROPHILS 82.1 % (40-80); PLATELET COUNT 153 10x3/uL (130-400); RBC 4.57 10x6/uL (4.00-5.40); RDW 13.3 % (11.5-14.5); WBC 11.1 10x3/uL (4.8-10.8)
[2016-08-19 05:26] LABS: CALC OSMOLALITY 285 mosm/kg (275-300); CALCIUM 9.5 mg/dL (8.5-10.1); CARBON DIOXIDE 35.9 mmol/L (21.0-32.0); CHLORIDE - SERUM 102 mmol/L (98-107); CREATININE - SERUM 0.6 mg/dL (0.6-1.3); GLUCOSE 117 mg/dL (74-106); MAGNESIUM - SERUM 2.4 mg/dL (1.8-2.4); PHOSPHOROUS 5.1 mg/dL (2.5-4.9); POTASSIUM - SERUM 4.2 mmol/L (3.5-5.1); SODIUM 141 mmol/L (136-145); UREA NITROGEN 23 mg/dL (7-18); eGFR NON AFRICAN AMERICAN > 90 mL/min (90-120)
--- NOTE | 2016-08-19 06:05 | NUR ---
FEEDING TUBES CHANGED.
--- NOTE | 2016-08-19 08:46 | NUR ---
0846- PT INTUBATED AND ON VENT. SIMV 4, RESP 15 BPM. FIO2 35%. SPO2 96%. PT FOLLOWS COMMAND,SULLIVAN. VSS AFEBRILE. PROPOFOL FOR SEDATION 50MCG/KG/MIN. MOUTH CARE,ROM AND TURNED. TF AT GOAL,PT ARI WELL.
--- NOTE | 2016-08-19 09:49 | NUR ---
NUTRITION MONITORING & EVAL CHART REVIEWED. PT REMAINS ON VENT. PULMOCARE @ 40 CC/HR. DIPRIVAN @ 26 CC/HR. RD FOLLOWING
--- NOTE | 2016-08-19 10:30 | NUR ---
1030- CALLED PT'S DAUGHTER RITA ON PHONE THEN DR JAIMES SPOKE TO HER ON PHONE WELL. DAUGHTER VERBILIZES THAT SHE WILL NOT BE ABLE TO VISIT TODAY DUE TO WORK SCHEDULE. DR JAIMES DISCUSSED PLAN OF CARE.
--- NOTE | 2016-08-19 12:34 | NUR ---
1230- YOUNGEST DAUGHTER AT , REVIEWED POC WITH HER. DAUGHTER STATED THAT SHE SPOKE WITH HER SISTER EARLIER TODAY ABOUT TRACH AND PEG.
--- NOTE | 2016-08-19 19:00 | NUR ---
REPORT RECEIVED. PATIENT ON VENT AND SEDATED WITH PROPOFOL. PATIENT WILL OPEN EYES SPONTANEOUSLY. OG INFUSING PULMOCARE @ 40CC/HR. CRACKLES HEARD IN HAM[place], RU AND RM LOBES OF LUNGS. DIMINISHED IN BASES. S1S2 NOTED. BOWEL SOUNDS ACTIVE. REYNOLDS DRAINING KELLY COLORED URINE TO GRAVITY. GENERALIZED EDEMA IN EXTREMITIES. +2 PULSES IN EXTREMITIES. SEE ASSESSMENT FOR MORE DETAILS. VSS.
--- NOTE | 2016-08-19 21:05 | NUR ---
FAMILY AT BEDSIDE, QUESTIONS ANSWERED.
--- NOTE | 2016-08-19 23:00 | NUR ---
REASSESSMENT COMPLETE. NO CHANGES.
[2016-08-20] VITALS (24 sets, daily range): BP systolic 91–110; BP diastolic 54–69
--- NOTE | 2016-08-20 03:00 | NUR ---
REASSESSMENT COMPLETE, NO CHANGES AT THIS TIME.
[2016-08-20 04:39] LABS: BASOPHILS 0 % (0.0-2.0); EOSINOPHILS 0.1 % (0-7); HEMATOCRIT 44.4 % (36.0-48.0); HEMOGLOBIN 14.1 g/dL (12-16); IMMATURE GRANULOCYTES 0.2 % (0-5); LYMPHOCYTES 11.4 % (15-50); MCHC 31.8 g/dL (31.0-37.0); MCV 94.5 fL (80.0-100.0); MEAN PLATELET VOLUME 10.1 fL (7.4-10.4); MONOCYTES 4.6 % (2-11); NEUTROPHILS 83.7 % (40-80); PLATELET COUNT 165 10x3/uL (130-400); RDW 13.2 % (11.5-14.5); WBC 9.1 10x3/uL (4.8-10.8)
[2016-08-20 04:48] LABS: CALC OSMOLALITY 287 mosm/kg (275-300); CALCIUM 9.4 mg/dL (8.5-10.1); CARBON DIOXIDE 32.7 mmol/L (21.0-32.0); CHLORIDE - SERUM 104 mmol/L (98-107); CREATININE - SERUM 0.6 mg/dL (0.6-1.3); GLUCOSE 123 mg/dL (74-106); POTASSIUM - SERUM 4.3 mmol/L (3.5-5.1); SODIUM 142 mmol/L (136-145); UREA NITROGEN 23 mg/dL (7-18); eGFR NON AFRICAN AMERICAN > 90 mL/min (90-120)
--- NOTE | 2016-08-20 07:00 | NUR ---
REC'D REPORT FROM OUT GOING RN. [id number] - ASSESSMENT AND ROM COMPLETED - CONT POC
--- NOTE | 2016-08-20 08:30 | NUR ---
PT AWAKE - ABLE TO NOD YES/NO TO QUESTIONS - PT DENIES ANY NEEDS - DECREASED PROPOFOL FOR A.M. ASSESSMENT - CONTINUE POC
--- NOTE | 2016-08-20 08:40 | CN ---
PATIENT NAME:AMBER MILLER MEDICAL RECORD: [id number] : 56 LOCATION:[id number] ADMIT DATE: 08/12/16 ACCOUNT: [id number] CONSULTING PHYSICIAN: ERIC ACUNA MD REFERRING PHYSICIAN: EDUAR DEL REAL MD DATE OF CONSULTATION: 08/19/2016 Surgical Consultation REQUESTING PHYSICIAN: Kodak Gordon MD REASON FOR CONSULTATION: Trach and PEG. HISTORY OF PRESENT ILLNESS: This is a 55-year-old female who was admitted ____ for respiratory failure. Over the past 1 week, the patient has been in the ICU on the ventilator. She has failed multiple breathing trials. All history is obtained through chart review and discussion with Dr. Gordon as the patient is currently intubated and sedated on the ventilator. She has been unable to be weaned from ____ IV antibiotics. REVIEW OF SYSTEMS: A 12-point review of systems unobtainable secondary to the patient's intubation and sedation. PAST MEDICAL HISTORY: Coronary artery disease, seizures, history of TIA, hypothyroidism, hyperlipidemia, GERD, chronic bronchitis, bipolar disorder, anxiety, adnCOPD. PAST SURGICAL HISTORY: Tubal ligation, Warthin's tumor excision, angioplasty with coronary stents. ALLERGIES: No known drug allergies. HOME MEDICATIONS: [place], potassium, Lasix, propafenone, Advair, DuoNebs, omeprazole, Tylenol, fluticasone, Singulair, Daliresp, Abilify, Proventil, Spiriva, Xanax, Zoloft, Depakote, Pravachol. FAMILY HISTORY: Unobtainable. SOCIAL HISTORY: By report, the patient is a lifelong smoker. ____ social history unobtainable. PHYSICAL EXAMINATION: VITAL SIGNS: Temperature 99.1, heart rate 84, respirations 19, blood pressure 92/58, satting 97% on 35% ventilator. GENERAL: This is an obese female in severe distress. EYES: Sclerae are anicteric. EARS, NOSE AND THROAT: Mucous membranes are moist. ET tube in place. NECK: Supple. No thyromegaly or lymphadenopathy. LUNGS: She has got decreased breath sounds bilaterally with bibasilar crackles and wheezing. CARDIOVASCULAR: She has normal sinus rhythm. ABDOMEN: Soft, nontender, and nondistended. EXTREMITIES: She has got 2+ pulses with positive lower extremity edema. SKIN: Warm and dry with normal turgor. NEUROLOGIC: She is GCS of 5T. CONSULT REPORT [id number] AMBER MILLER IMAGING: Chest x-ray personally reviewed, which shows no active disease. IMPRESSION: A 55-year-old female with acute on chronic hypoxic and hypercapnic respiratory failure/vent-dependent respiratory failure. PLAN: I agree with Dr. Gordon. OR next week for tracheostomy and EGD with PEG placement. Continue current plan of care. We will follow. TRANSINT:[id number] Voice Confirmation ID: [id number] DOCUMENT ID: [id number] ERIC ACUNA MD at 0840 CC: [id number] DICTATION DATE: 08/19/16 1533 OUTSOLES CHANNEL OPENER: 08/19/16 1637 ADM IN [facility] [address] [place] [address]
--- NOTE | 2016-08-20 09:25 | NUR ---
DR. ACUNA AT BEDSIDE PLAN TO PLACE TRACH AND PEG TUBE Monday08/23/2016.
--- NOTE | 2016-08-20 09:30 | NUR ---
DR. JAIMES AT BEDSIDE - RT AT BEDSIDE - PT AWAKE ALERT - ABLE TO ANSWER QUESTIONS. MD ASKED TO CUT PROPROFOL IN HALF TO ALLOW PT TO BE AWARE OF CPAP TRIAL. WILL FOLLOW CLOSELY AND CPOC
--- NOTE | 2016-08-20 10:00 | NUR ---
RT ADJUSTED VENT TO CPAP SETTING - WILL MONITOR CLOSELY -
--- NOTE | 2016-08-20 11:15 | NUR ---
RT PLACES PT ON VENT SETTING (SIMV) TITRATED PROPROFOL TO COMFORT LEVEL. PT AWARE AND AGREED. WILL CONTINUE POC
--- NOTE | 2016-08-20 13:00 | NUR ---
RT AT BEDSIDE - SEE RT FLOW SHEET
--- NOTE | 2016-08-20 17:30 | NUR ---
RT AT BEDSIDE (SEE RT FLOW SHEET)
--- NOTE | 2016-08-20 18:05 | NUR ---
PT RESTING WITH EYES CLOSED - [facility].
--- NOTE | 2016-08-20 19:20 | NUR ---
SHIFT ASSESSMENT COMPLETED. SEE ASSESSMENT FLOWSHEET. AWAKE. FOLLOWS COMMANDS. HUGH, WITH R.T. AT BEDSIDE. WILL MONITOR.
--- NOTE | 2016-08-20 21:20 | NUR ---
BM OF LIQUID, BRWN STOOL NOTED. COMPLETE BED BATH AND LINEN CHANGE COMPLETED. ORAL CARE PROVIDED. TURNED AND REPOSITIONED-SEE ADL'S. NO VISITORS AT THIS TIME. WILL MONITOR.
--- NOTE | 2016-08-20 23:00 | NUR ---
NO ACUTE DISTRESS NOTED. WILL CONTINUE TO MONITOR.
[2016-08-21] VITALS (25 sets, daily range): BP systolic 85–112; BP diastolic 51–69
--- NOTE | 2016-08-21 00:20 | NUR ---
REASSESSMENT COMPLETED. SEE ASSESSMENT FLOWSHEET. SHAKES HEAD "YES" AND "NO" TO QUESTIONS ASKED. INCREASED SEDATION TO 55MCG/KG/MIN-PROPOFOL. <20ML GASTRIC RESIDUAL NOTED. INCREASED TUBE FEEDING OF PULMOCARE TO 40ML/HR (GOAL) PER ORDERS. NO BM NOTED AT THIS TIME. WILL MONITOR.
--- NOTE | 2016-08-21 01:24 | NUR ---
AWAKE. COUGHING AND TRYING TO GET BOTH HANDS UP TO OETT. ATIVAN GIVEN TO HELP WITH AGITATION. RESP RATE IN THE MID 30'S. HR UP 120'S. SUCTIONED DOWN OETT. MINIMAL CLEAR, WHITE SPUTUM REMOVED. ENCOURAGED TO REST. WILL CONTINUE TO MONITOR.
--- NOTE | 2016-08-21 03:00 | NUR ---
REASSESSMENT COMPLETED. SEE ASSESSMENT FLOWSHEET. RESTING WITH EYES CLOSED NOW SINCE ATIVAN. NO NEW ACUTE CHANGES IN ASSESSMENT. PORTABLE CHEST XRAY COMPLETED. ORAL CARE PROVIDED. TURNED AND REPOSITIONED. NO BM NOTED BETWEEN LEGS. WILL MONITOR.
--- NOTE | 2016-08-21 03:30 | NUR ---
PORTABLE CHEST XRAY COMPLETED. TOLERATED WELL. TURNED AND REPOSITIONED.
--- NOTE | 2016-08-21 05:00 | NUR ---
EYES CLOSED. NO ACUTE DISTRESS NOTED. TITRATING DIPRIVAN DOWN TO 45 MCG/KG/MIN.
[2016-08-21 05:45] LABS: BASOPHILS 0 % (0.0-2.0); EOSINOPHILS 0.1 % (0-7); HEMATOCRIT 42.5 % (36.0-48.0); HEMOGLOBIN 13.6 g/dL (12-16); IMMATURE GRANULOCYTES 0.6 % (0-5); LYMPHOCYTES 18.8 % (15-50); MCH 30.2 pg (26.0-34.0); MCV 94.2 fL (80.0-100.0); MEAN PLATELET VOLUME 10.6 fL (7.4-10.4); MONOCYTES 5.1 % (2-11); NEUTROPHILS 75.4 % (40-80); PLATELET COUNT 174 10x3/uL (130-400); RBC 4.51 10x6/uL (4.00-5.40); RDW 13.3 % (11.5-14.5); WBC 10.8 10x3/uL (4.8-10.8)
[2016-08-21 05:58] LABS: CALC OSMOLALITY 284 mosm/kg (275-300); CALCIUM 8.8 mg/dL (8.5-10.1); CHLORIDE - SERUM 104 mmol/L (98-107); CREATININE - SERUM 0.5 mg/dL (0.6-1.3); GLUCOSE 116 mg/dL (74-106); POTASSIUM - SERUM 3.7 mmol/L (3.5-5.1); SODIUM 141 mmol/L (136-145); UREA NITROGEN 20 mg/dL (7-18); eGFR NON AFRICAN AMERICAN > 90 mL/min (90-120)
--- NOTE | 2016-08-21 06:06 | NUR ---
CRITICAL LAB TAKEN. AMMONIA -64. 'S AWARE AND IS ON LACTULOSE TID.
--- NOTE | 2016-08-21 06:30 | NUR ---
0700 LACTULOSE GIVEN. BAG IF IV FLUIDS HUNG.
--- NOTE | 2016-08-21 07:00 | NUR ---
REPORT RECIEVED, INITIAL ASSESSMENT COMPLETE, PLEASE SEE FLOW SHEETS FOR DETAILS. VSS AT THIS TIME, WILL CONTINUE TO MONITOR.
--- NOTE | 2016-08-21 09:03 | NUR ---
PROVIDED ORAL CARE AND TURNING, VSS AT THIS TIME, WILL CONTINUE TO MONITOR.
--- NOTE | 2016-08-21 11:16 | NUR ---
REASSESSMENT COMPLETE, PLEASE SEE FLOW SHEETS FOR DETAILS. RESIDUAL FROM OGT AT 20ML WHICH WAS RETURNED. VSS AT THIS TIME, WILL CONTINUE TO MONITOR.
--- NOTE | 2016-08-21 11:19 | NUR ---
ORAL CARE AND TURNING PROVIDED. WILL CONTINUE TO MONITOR.
--- NOTE | 2016-08-21 13:00 | NUR ---
ORAL CARE AND TURNING PROVIDED. VSS AT THIS TIME, WILL CONTINUE TO MONITOR.
--- NOTE | 2016-08-21 13:30 | NUR ---
REPLACED TUBE FEEDING BAG.
--- NOTE | 2016-08-21 15:02 | NUR ---
REASSESSMENT COMPLETE, PLEASE SEE FLOW SHEETS FOR DETAILS. REYNOLDS CARE PROVIDED USING BARD WIPES. ORAL CARE AND TURNING PROVIDED. VSS AT THIS TIME, WILL CONTINUE TO MONITOR.
--- NOTE | 2016-08-21 17:00 | NUR ---
ORAL CARE AND TURNING BPROVIDED. VSS AT THIS TIME, WILL CONTINUE TO MONITOR.
--- NOTE | 2016-08-21 19:36 | NUR ---
REPORT RECIEVED AND ASSESSMENT COMPLETED FAMILY MEMBER AT BEDSIDE. VSS. WILL CONTINUE TO MONITOR.
--- NOTE | 2016-08-21 21:18 | NUR ---
2100 MEDS GIVEN, AND PT REPOSITIONED IN BED. NO OTHER CHANGES AT THIS TIME. VSS. WILL CONTINUE TO MONITOR.
--- NOTE | 2016-08-21 23:30 | NUR ---
REASSESSMENT COMPLETED. SEE ASESSMENT FOR FULL DETAILS. VSS. WILL CONTINUE TO MONITOR.
[2016-08-22] VITALS (24 sets, daily range): BP systolic 91–122; BP diastolic 48–93
--- NOTE | 2016-08-22 01:00 | NUR ---
VSS. NO CHANGES IN STATUS AT THIS TIME. PT WAKES TO VERBAL STIMULI. VSS. WILL CONTINUE TO MONITOR.
--- NOTE | 2016-08-22 03:00 | NUR ---
REASSESSMENT COMPLETED. SEE ASSESSMENT FOR FULL DETAILS. NO OTHER CHANGES AT THIS TIME. VSS. WILL MONITOR.
[2016-08-22 05:50] LABS: CALC OSMOLALITY 285 mosm/kg (275-300); CALCIUM 8.9 mg/dL (8.5-10.1); CARBON DIOXIDE 31.9 mmol/L (21.0-32.0); CHLORIDE - SERUM 104 mmol/L (98-107); CREATININE - SERUM 0.5 mg/dL (0.6-1.3); GLUCOSE 101 mg/dL (74-106); POTASSIUM - SERUM 3.6 mmol/L (3.5-5.1); SODIUM 142 mmol/L (136-145); UREA NITROGEN 22 mg/dL (7-18); eGFR NON AFRICAN AMERICAN > 90 mL/min (90-120)
[2016-08-22 05:52] LABS: BASOPHILS 0.1 % (0.0-2.0); EOSINOPHILS 0.3 % (0-7); HEMATOCRIT 42.5 % (36.0-48.0); HEMOGLOBIN 13.4 g/dL (12-16); IMMATURE GRANULOCYTES 0.6 % (0-5); LYMPHOCYTES 21.4 % (15-50); MCH 29.8 pg (26.0-34.0); MCHC 31.5 g/dL (31.0-37.0); MCV 94.7 fL (80.0-100.0); MEAN PLATELET VOLUME 10.6 fL (7.4-10.4); MONOCYTES 6.2 % (2-11); NEUTROPHILS 71.4 % (40-80); PLATELET COUNT 190 10x3/uL (130-400); RBC 4.49 10x6/uL (4.00-5.40); RDW 13.4 % (11.5-14.5); WBC 10.9 10x3/uL (4.8-10.8)
--- NOTE | 2016-08-22 05:55 | NUR ---
PARTIAL LINEN CHANGE AND BATH GIVEN. NO CHANGES TO REPORT AT THIS TIME
--- NOTE | 2016-08-22 07:00 | NUR ---
REPORT RECIVED, INITIAL ASSESSMENT COMPLETE, PLEASE SEE FLOW SHEETS FOR DETAILS. ORAL CARE AND TURNING PROVIDED. SCD'S CHECKED AND SKIN WNL. BED LOW AND LOCKED, CALL LIGHT IN REACH. RESTRAINTS CHECKED AND SECURED WITH QUICK RELEASE KNOTS. VSS AT THIS TIME, WILL CONTINUE TO MONITOR.
--- NOTE | 2016-08-22 07:41 | NUR ---
DECREASED DIPROVAN TO 25 MCG/KG/MIN PER RT FOR WEANING. WILL MONITOR.
--- NOTE | 2016-08-22 08:20 | NUR ---
0800- IV LEAKING TO R ARM. RESITED WITH 20GA TO RT HAND X 2 STICKS. PT THRASHING AROUND IN BED. BED RAILS PADDED WELL. PT DOES NOT RESPOND WITH PURPOSE, DOES NOT ANSWER TO QUESTIONS.
--- NOTE | 2016-08-22 09:10 | NUR ---
ORAL CARE AND TURNING PROVIDED. VSS AT THIS TIME, WILL CONTINUE TO MONITOR.
--- NOTE | 2016-08-22 09:55 | NUR ---
DECREASED DIPROVAN TO 12.5 PER RT FOR WEANING, WILL CONTINUE TO MONITOR.
--- NOTE | 2016-08-22 10:11 | NUR ---
SUCTIONED PT, CLEAR SPUTUM. EDUCATED ON WEANING, SHE NEEDED TO RELAX AND FOCUD ON BIG DEEP BREATHS, SHE NODDED IN RESPONSE. VSS AT THIS TIME, WILL CONTINUE TO MONITOR.
--- NOTE | 2016-08-22 10:29 | NUR ---
DECREASED DIPROVAN TO 6MCG/KG/MIN PER RT FOR WEANING. PT TOLERATING WELL, SHE IS TAKING DEEP BREATHS TITAL VOLUME AVERAGING 550. VSS AT THIS TIME, WILL CONTINUE TO MONITOR.
--- NOTE | 2016-08-22 10:51 | NUR ---
REASSESSMENT COMPLETE, PLEASE SEE FLOW SHEETS FOR DETAILS. ORAL CARE AND TURNING PROVIDED. VSS AT THIS TIME, WILL CONTINUE TO MONITOR.
--- NOTE | 2016-08-22 11:50 | NUR ---
LOUIEVAN TURNED OFF, SPOKE WITH DR JAIMES AND HE SAID WE WILL ATTEMPT EXTUBATION ABG'S ARE GOOD ENOUGH TO TRY IN ORDER TO PREVENT PT HAVING TO GET TRACH/PEG PLACED. MONITORING PT.
--- NOTE | 2016-08-22 12:26 | NUR ---
Nutrition Follow Up: Chart reviewed. Pt to attempt to wean from vent today. TF of Pulmocare @ 40 ml/hr. Meds: NS @ 50 ml/hr, Solu Medrol, Lactulose, Lasix, Diprivan - rate is currently being decreased Labs noted +BM 08/21/16 Wt loss 4# I>O If pt is unable to extubate today rec continue current TF regimen. RD following.
--- NOTE | 2016-08-22 13:07 | NUR ---
1205 PT EXTUBATED SUCCESSFULLY. ON 4L NC. 96% O2. PROVIDED SUCTION. WILL CONTINUE TO MONITOR.
--- NOTE | 2016-08-22 15:00 | NUR ---
REASSESSMENT COMPLETE, PLEASE SEE FLOW SHEETS FOR DETAILS. ORAL CARE AND TURNING PROVIDED. VSS, WILL CONTINUE TO MONITOR.
--- NOTE | 2016-08-22 15:25 | NUR ---
PT ASKED FOR BEDPAN AND HAD MEDIUM SIZED BM - DIARRHEA.
--- NOTE | 2016-08-22 15:40 | NUR ---
IN REFERENCE TO THE PHARMACY WARNING FOR DIAMOX, SPOKE WITH DR HOOD ABOUT NOT GIVING THE MED BECAUSE IT LOWERS BP AND PT BP IS LOW ALREAY. DR HOOD DECIDED TO DC MED.
--- NOTE | 2016-08-22 17:00 | NUR ---
PT RESTING, BED LOW AND LOCKED, CALL LIGHT IN REACH, VSS, WILL CONTINUE TO MONITOR.
--- NOTE | 2016-08-22 17:48 | NUR ---
LARGE DIARRHEA BM CLEANED UP.
--- NOTE | 2016-08-22 19:30 | NUR ---
REC'D TO CARE, WATER FILTRATION TECHNICIAN PER FLOWSHEET. PT AWAKE, SLOW TO ANSWER AND SOFT SPOKEN. COOPERATIVE, ORIENTED. VSS. LUNGS CTA, DIMINISHED L SIDE AND BASES. PT WITH WEAK BUT PRODUCTIVE COUGN - USES LIZAUER. PT TAKING THICK LIQUIDS AND JELLO WITH OUT DIFFICULTY. ALARMS ON AND C/L IN REACH.
--- NOTE | 2016-08-22 19:58 | NUR ---
REPOSITIONED UP IN BED, PO MEDS GIVEN WITH THICKENED LIQUID, NO DIFFICULTY SWALLOWING. PT WITH PRODUCTIVE COUGH AND USES YANKAUER. VSS. CL IN REACH.
--- NOTE | 2016-08-22 21:41 | NUR ---
DAUGHTER AT BS. PT ON BEDPAN PER REQUEST.
--- NOTE | 2016-08-22 22:00 | NUR ---
PT HAD 50ML YELLOW/BROWN DIARRHEA. JENNIFFER-CARE, REYNOLDS CARE DONE AND PADS CHANGED.
--- NOTE | 2016-08-22 23:30 | NUR ---
REASSESSMENT PER FLOWSHEET, NO ACUTE CHANGES. PT COOPERATIVE, STILL DIFFICULTY TO HEAR D/T SOFT SPEECH, BUT NEURO WNL. VSS. C/L IN REACH AND PT USING HERNÁN.
[2016-08-23] VITALS (24 sets, daily range): BP systolic 92–127; BP diastolic 55–82
--- NOTE | 2016-08-23 01:53 | NUR ---
REPOSITIONED UP IN BED TO L SIDE. VSS. NO SIGN OF DISTRESS. PT DENIES NEEDS.
--- NOTE | 2016-08-23 03:30 | NUR ---
REASSESSMENT PER FLOWSHEET, NO ACUTE CHANGES. PCXR DONE.
[2016-08-23 04:15] LABS: BASOPHILS 0.1 % (0.0-2.0); EOSINOPHILS 0.3 % (0-7); HEMATOCRIT 41.1 % (36.0-48.0); HEMOGLOBIN 13.7 g/dL (12-16); IMMATURE GRANULOCYTES 0.5 % (0-5); LYMPHOCYTES 16.1 % (15-50); MCH 31.4 pg (26.0-34.0); MCHC 33.3 g/dL (31.0-37.0); MCV 94.1 fL (80.0-100.0); MEAN PLATELET VOLUME 10.3 fL (7.4-10.4); MONOCYTES 4.4 % (2-11); NEUTROPHILS 78.6 % (40-80); PLATELET COUNT 181 10x3/uL (130-400); RBC 4.37 10x6/uL (4.00-5.40); RDW 13.5 % (11.5-14.5); WBC 11.7 10x3/uL (4.8-10.8)
[2016-08-23 04:42] LABS: CALC OSMOLALITY 289 mosm/kg (275-300); CALCIUM 9.3 mg/dL (8.5-10.1); CARBON DIOXIDE 32.6 mmol/L (21.0-32.0); CHLORIDE - SERUM 106 mmol/L (98-107); CREATININE - SERUM 0.5 mg/dL (0.6-1.3); GLUCOSE 97 mg/dL (74-106); POTASSIUM - SERUM 3.5 mmol/L (3.5-5.1); SODIUM 144 mmol/L (136-145); UREA NITROGEN 20 mg/dL (7-18); eGFR NON AFRICAN AMERICAN > 90 mL/min (90-120)
--- NOTE | 2016-08-23 05:21 | NUR ---
K 3.5 - COVERAGE PER E PROTOCOL. PT UP IN BED, NO DIFFICULTY SWALLOWING.
--- NOTE | 2016-08-23 06:10 | NUR ---
NO VISITORS AT THIS TIME. PT RESTING QUIETLY, VSS.
--- NOTE | 2016-08-23 07:00 | NUR ---
REPORT RECIVED, INTITIAL ASSESSMENT COMPLETE, PLEASE SEE FLOW SHEETS FOR DETAILS. PT DENIES PAIN/NEEDS AT THIS TIME. BED LOW AND LOCKED, CALL LIGHT IN REACH. SCD'S ON AND RUNNING. VSS AT THIS TIME, WILL CONTINUE TO MONITOR.
--- NOTE | 2016-08-23 09:00 | NUR ---
SELF ORAL CARE AND PARTIAL ASSIST IN REPOSITIONING PROVIDED. VSS AT THIS TIME. PT DENIES NEEDS/PAIN AT THIS TIME. WILL CONTINUE TO MONITOR.
--- NOTE | 2016-08-23 11:00 | NUR ---
REASSESSMENT COMPLETE, PLEASE SEE FLOW SHEETS FOR DETAILS. PT ATE APPROXIMATELY 90% OF HER LUNCH AND TOELRATED WELL. DENIES PAIN/NEEDS AT THIS TIME. REPOSITIONING PROVIDED. VSS AT THIS TIME, WILL CONTINUE TO MONITOR.
--- NOTE | 2016-08-23 13:00 | NUR ---
ORAL CARE AND TURNING ASSISTANCE PROVIDED. DENIES PAIN/NEEDS AT THIS TIME, VSS, WILL CONTINUE TO MONITOR.
--- NOTE | 2016-08-23 15:00 | NUR ---
REASSESSMENT COMPLETE, PLEASE SEE FLOW SHEETS FOR DETAILS. ASSISTANCE WITH ORAL CARE AND TURNING PROVIDED. DENIES PAIN/NEEDS AT THIS TIME. VSS, WILL CONTINUE TO MONITOR.
--- NOTE | 2016-08-23 15:45 | NUR ---
TURNED SELF FOR ON AND OFF BED RENAE. PROVIDED REYNOLDS CARE AT THIS TIME. VSS, WILL CONTINUE TO MONITOR.
--- NOTE | 2016-08-23 17:00 | NUR ---
PULLED SELF UP IN BED TO SIT UP AND EAT DINNER. DENIES PAIN/NEEDS AT THIS TIME. VSS, WILL CONTINUE TO MONITOR.
--- NOTE | 2016-08-23 19:30 | NUR ---
REC'D TO CARE, CUSTOMS PORT DIRECTOR PER FLOWSHEET. PT AWAKE AND ORIENTED. VSS. PT DENIES PAIN OR NEEDS. REYNOLDS CATH PATENT. PIV X 2 PATENT - SEE FLOWSHEET. LUNGS CLEAR, DIMINISHED BASES. CM - NSR. ALARMS ON AND C/L IN REACH.
--- NOTE | 2016-08-23 20:25 | NUR ---
PT UP IN BED, PO MEDS GIVEN PER MD ORDER. PT GIVEN PUDDING, JELLO AND WINSTON CRACKERS PER REQUEST. VSS. C/L IN REACH.
--- NOTE | 2016-08-23 22:27 | NUR ---
PT ON BEDPAN - SMALL LOOSE STOOL. JENNIFFER-CARE DONE. REYNOLDS-CARE DONE. BARRIER CREAM TO BUTTOCKS. UP IN BED TO R SIDE WITH PILLOWS. HEELS BRIDGED. C/L IN REACH.
--- NOTE | 2016-08-23 23:16 | NUR ---
REASSESSMENT PER FLOWSHEET, NO ACUTE CHANGES. PT AWAKENS EASILY, DENIES PAIN OR NEEDS. ALARMS ON AND C/L IN REACH.
[2016-08-24] VITALS (13 sets, daily range): BP systolic 89–132; BP diastolic 52–76
--- NOTE | 2016-08-24 01:00 | NUR ---
RESTING WITH EYES CLOSED, VSS. NO SIGN OF DISTRESS.
--- NOTE | 2016-08-24 02:53 | NUR ---
PT UP IN CHAIR FOR BATH AND LINEN CHANGE. ASSIST X 2. ENCOURAGED TO DO MUCH SHE COULD ON HER ON. HAIR WASHED. DSG CHANGES TO PIV X 2. LOTION TO DRY SKIN. ALARMS ON AND C/L IN REACH.
--- NOTE | 2016-08-24 04:04 | NUR ---
REMAINS UP IN CHAIR. PCXR DONE. GIVEN JELLO AND CRACKERS PER REQUEST.
[2016-08-24 04:38] LABS: BASOPHILS 0.1 % (0.0-2.0); EOSINOPHILS 0.2 % (0-7); HEMATOCRIT 42.8 % (36.0-48.0); HEMOGLOBIN 13.5 g/dL (12-16); IMMATURE GRANULOCYTES 0.4 % (0-5); LYMPHOCYTES 17.9 % (15-50); MCH 29.9 pg (26.0-34.0); MCHC 31.5 g/dL (31.0-37.0); MCV 94.7 fL (80.0-100.0); MEAN PLATELET VOLUME 10.5 fL (7.4-10.4); MONOCYTES 4.2 % (2-11); NEUTROPHILS 77.2 % (40-80); PLATELET COUNT 198 10x3/uL (130-400); RBC 4.52 10x6/uL (4.00-5.40); RDW 13.4 % (11.5-14.5); WBC 9.3 10x3/uL (4.8-10.8)
--- NOTE | 2016-08-24 05:07 | NUR ---
BACK TO BED. L WRIST IV LEAKING - D/C'D INTACT. PT REPOSITIONED SELF TO L SIDE. C/L IN REACH.
[2016-08-24 05:10] LABS: ALBUMIN 2.7 g/dL (3.4-5.0); ALKALINE PHOSPHATASE 41 U/L (46-116); ALT (SGPT) 19 U/L (10-68); CALC OSMOLALITY 288 mosm/kg (275-300); CALCIUM 8.4 mg/dL (8.5-10.1); CARBON DIOXIDE 32.3 mmol/L (21.0-32.0); CHLORIDE - SERUM 106 mmol/L (98-107); CREATININE - SERUM 0.5 mg/dL (0.6-1.3); GLUCOSE 114 mg/dL (74-106); PHOSPHOROUS 2.9 mg/dL (2.5-4.9); POTASSIUM - SERUM 3.7 mmol/L (3.5-5.1); SODIUM 144 mmol/L (136-145); UREA NITROGEN 16 mg/dL (7-18); eGFR NON AFRICAN AMERICAN > 90 mL/min (90-120)
--- NOTE | 2016-08-24 06:56 | NUR ---
L PIV POSITIONAL. NEW 20GA PIV SITED TO L WRIST X 1 STICK.
--- NOTE | 2016-08-24 07:25 | NUR ---
REPORT RECD PT CARE ASSUMED. PT IS ALERT AND ORIENTED X4. S1S2 NOTED SR PER CM. ADVENTICIOUS LUNG SOUNDS BILAT. PT HAS BREATHING TX CURRENTLY. BOWEL SOUNDS ACTIVE X 4. PT RESTING IN BED. CALL LIGHT IN REACH.
--- NOTE | 2016-08-24 08:00 | NUR ---
PT PROVIDED WITH BREAKFAST TRAY. PT AMBLE TO FEED SELF.
--- NOTE | 2016-08-24 09:23 | NUR ---
MEDICATIONS PASSED PER EMAR. PT TOLERATES MED PASS WELL.
--- NOTE | 2016-08-24 10:00 | NUR ---
NUTRITION MONITORING & EVAL CHART REVIEWED, PT VISIT. PT REPORTS GOOD PO INTAKE RENAL DIET. WILL CONTINUE TO PROVIDE DIET, MONITOR PT PROGRESS. RD FOLLOWING
--- NOTE | 2016-08-24 10:26 | NUR ---
PT ATTEMPTS TO AMBULTE FROM BED WITH CHAIR WITHOUT ASSISTANCE. PT IS AWARE THAT PT WOULD ASSIST HER/EVALUATE HER THIS MORNING. PT PULLS OUT IV IN PROCESS. PT STOPPED AND HELPED BEFORE LEAVING BEDSIDE. SL IV TO LAC ACCESSED WITH OUT DIFFICULTY.
--- NOTE | 2016-08-24 10:45 | NUR ---
OK TO TRANSFER PER DR CHACKO
--- NOTE | 2016-08-24 12:52 | NUR ---
PT FAMILY AT BEDSIDE FOR VISIATION. PT FAMILY UPDATED ON PT CONDITION. PT FAMILY REQUESTS COMPELTE LIST OF MEDICATIONS PT IS ON. LIST PROVIDED. PT STATES SHE WOULD LIKE TO SPEACK WITH THE DOCTOR WHEN HE IS AVAILABLE.
--- NOTE | 2016-08-24 13:00 | NUR ---
RODOLFO D/C AT THIS TIME. PT STATES IT HURTS "DOWN THERE" UA/CULTURE AT THIS TIME. LUNCH TRAT PROVIDED.
--- NOTE | 2016-08-24 13:57 | NUR ---
PT UP WITH PT, AMBULATES 300 FT
[2016-08-24 16:01] LABS: APPEARANCE HAZY (CLEAR); COLOR YELLOW (YELLOW); LEUKOCYTE ESTERASE 1+ (NEGATIVE)
[2016-08-24 16:02] LABS: BILIRUBIN NEGATIVE (NEGATIVE); GLUCOSE NEGATIVE (NEGATIVE); KETONE NEGATIVE (NEGATIVE); NITRITE POSITIVE (NEGATIVE); PROTEIN TRACE mg/dL (NEGATIVE); UROBILINOGEN NORMAL (NORMAL)
[2016-08-24 16:03] LABS: RED CELLS - URINE >50 /hpf (0-5)
[2016-08-24 16:04] LABS: BACTERIA MANY /hpf (NONE SEEN)
--- NOTE | 2016-08-24 16:23 | NUR ---
IV TO RIGHT AC NOT INFUSING WELL. DRESSING IS NOT CLEAR TO SEE. IV RESITED TO RIGHT HAND, INFUSING WELL.
--- NOTE | 2016-08-24 17:55 | NUR ---
PT CONSUMES ALL OF HER DINNER. PT PLACED ON BED RENAE.
--- NOTE | 2016-08-24 18:12 | NUR ---
PT HAS BM AT THIS TIME. PT IS CLEANED AND POSITIONED FOR COMFORT.
--- NOTE | 2016-08-24 19:30 | NUR ---
REC'D FROM ICU PER BED TO ROOM 0146 A 56 Y/O W/FEMALE PER SERVICES DR. DEL REAL WITH DX COPD. O2 ON 2L/M PER NC. IV PATENT RT HAND SALINE LOCK. ALERT/ORIENTED X3. SR UP X3 CALL LIGHT WITHIN REACH.
--- NOTE | 2016-08-24 22:00 | NUR ---
MEDS GIVEN PER OCT. UP WITH USE OF WALKER TO BR VOIDS WELL. ASSISTED BACK TO BED SR UP X2 CALL LIGHT WITHIN REACH.
[2016-08-25] VITALS: BP 106/62
--- NOTE | 2016-08-25 02:26 | NUR ---
EYES CLOSED RESPIRATIONS WITH EASE AND UNLABORED.
[2016-08-25 04:00] VITALS: BP 106/57
--- NOTE | 2016-08-25 04:19 | NUR ---
EYES CLOSED RESPIRATIONS WITH EASE AND UNLABORED.
[2016-08-25 05:27] LABS: BASOPHILS 0 % (0.0-2.0); EOSINOPHILS 0.7 % (0-7); HEMATOCRIT 41.5 % (36.0-48.0); IMMATURE GRANULOCYTES 0.5 % (0-5); LYMPHOCYTES 29.7 % (15-50); MCH 29.4 pg (26.0-34.0); MCHC 31.3 g/dL (31.0-37.0); MCV 93.9 fL (80.0-100.0); MEAN PLATELET VOLUME 10.3 fL (7.4-10.4); MONOCYTES 5.1 % (2-11); PLATELET COUNT 203 10x3/uL (130-400); RBC 4.42 10x6/uL (4.00-5.40); RDW 13.4 % (11.5-14.5); WBC 10.1 10x3/uL (4.8-10.8)
[2016-08-25 06:14] LABS: ALBUMIN 2.7 g/dL (3.4-5.0); ALKALINE PHOSPHATASE 39 U/L (46-116); ALT (SGPT) 16 U/L (10-68); BILIRUBIN - TOTAL 0.32 mg/dL (0.2-1.3); CALC OSMOLALITY 285 mosm/kg (275-300); CALCIUM 8.9 mg/dL (8.5-10.1); CARBON DIOXIDE 33.5 mmol/L (21.0-32.0); CHLORIDE - SERUM 106 mmol/L (98-107); CREATININE - SERUM 0.4 mg/dL (0.6-1.3); GLUCOSE 86 mg/dL (74-106); PROTEIN - SERUM 5.9 g/dL (6.4-8.2); SODIUM 144 mmol/L (136-145); UREA NITROGEN 13 mg/dL (7-18); eGFR NON AFRICAN AMERICAN > 90 mL/min (90-120)
--- NOTE | 2016-08-25 07:15 | NUR ---
REPORT RECEIVED FROM MANAGER PROVIDER RELATIONS NURSE. CALL LIGHT IN REACH.
[2016-08-25 07:57] VITALS: BP 124/74
--- NOTE | 2016-08-25 09:59 | NUR ---
ASSESSMENT COMPLETED. AM MEDS ADMINISTERED. PATIENT IS SHAKING HORRIBLY AND UNABLE TO HOLD CUP OF MEDS WITHOUT DROPPING THEM. I ASSISTED HER WITH TAKING HER PILLS AND HOLDING HER CUP OF SODA. SHE STATES SHE IS SHAKING BECAUSE WE HAVE NOT BEEN GIVING HER THE XANAX SHE USUALLY TAKES AT HOME AND SHE ALSO C/O NOT HAVING HER NORCO WHICH SHE USUALLY TAKES FOR HER BACK PAIN. I EXPLAINED TO THE PATIENT THAT HER NORCO IS ORDERED SO SHE CAN HAVE THAT BUT IT IS NEEDED SO SHE WOULD HAVE TO ASK FOR IT EVERY 4 HOURS IF SHE IS HAVING ANY PAIN. I ALSO TOLD HER THAT THE XANAS IS ON HOLD BUT I WILL TALK TO THE DOCTOR. CALL LIGHT IN REACH. WILL CONTINUE WITH PLAN OF CARE.
--- NOTE | 2016-08-25 11:02 | NUR ---
XANAX PO PER C/O ANXIETY AND SHAKINESS.
--- NOTE | 2016-08-25 11:52 | NUR ---
ROCEPHIN IVPB PER ORDER. SIFE EFFECTS DISCUSSED.
[2016-08-25 12:31] VITALS: BP 112/65
--- NOTE | 2016-08-25 12:38 | NUR ---
EATING LUNCH AT THIS TIME.
--- NOTE | 2016-08-25 13:00 | NUR ---
AWAKE ALERT COLOR ADQ SKIN WARM AND DRY DENIES ANY NEEDS IV CONT TO RT HAND SITE CLEAN AND DRY AT PRESENT.
[2016-08-25 15:57] VITALS: BP 101/59
[2016-08-25 20:00] VITALS: BP 99/62
--- NOTE | 2016-08-25 20:00 | NUR ---
ASSESSMENT PER FLOWSHEET. IV PATENT LEFT HAND OF NS AT 50CC'S/HR SITE CLEAR. O2 ON 2L/M PER NC. RESTING QUIETLY DENIES NEEDS.
--- NOTE | 2016-08-25 21:23 | NUR ---
C/O PAIN BACK AREA. NORCO TAB ONE PO GIVEN FOR BACK DISCOMFORT. MEDS GIVEN PER MAR. UP WITH HELP TO BR VOIDS WELL.
[2016-08-26] VITALS: BP 110/62
--- NOTE | 2016-08-26 | NUR ---
UP TO BR VOIDS WELL ASSISTED TO BED SR UP X2 CALL LIGHT WITHIN REACH.
--- NOTE | 2016-08-26 02:30 | NUR ---
EYES CLOSED RESPIRATIONS WIOTH EASE AND UNLABORED.
[2016-08-26 04:00] VITALS: BP 101/66
--- NOTE | 2016-08-26 04:39 | NUR ---
RESTING QUIETLY DENIES NEEDS.
[2016-08-26 06:50] LABS: ALBUMIN 2.7 g/dL (3.4-5.0); ALKALINE PHOSPHATASE 41 U/L (46-116); CALC OSMOLALITY 284 mosm/kg (275-300); CALCIUM 8.8 mg/dL (8.5-10.1); CARBON DIOXIDE 31.1 mmol/L (21.0-32.0); CHLORIDE - SERUM 106 mmol/L (98-107); GLUCOSE 93 mg/dL (74-106); PROTEIN - SERUM 6.4 g/dL (6.4-8.2); SODIUM 143 mmol/L (136-145); UREA NITROGEN 12 mg/dL (7-18)
[2016-08-26 06:52] LABS: BASOPHILS 0.1 % (0.0-2.0); EOSINOPHILS 0.7 % (0-7); HEMATOCRIT 42.2 % (36.0-48.0); HEMOGLOBIN 13.5 g/dL (12-16); IMMATURE GRANULOCYTES 0.5 % (0-5); LYMPHOCYTES 31.7 % (15-50); MCH 30.2 pg (26.0-34.0); MCV 94.4 fL (80.0-100.0); MEAN PLATELET VOLUME 10.1 fL (7.4-10.4); MONOCYTES 4.1 % (2-11); NEUTROPHILS 62.9 % (40-80); PLATELET COUNT 204 10x3/uL (130-400); RBC 4.47 10x6/uL (4.00-5.40); RDW 13.8 % (11.5-14.5); WBC 10.1 10x3/uL (4.8-10.8)
[2016-08-26 06:54] LABS: ALT (SGPT) 21 U/L (10-68); CREATININE - SERUM 0.6 mg/dL (0.6-1.3); POTASSIUM - SERUM 3.9 mmol/L (3.5-5.1); eGFR NON AFRICAN AMERICAN > 90 mL/min (90-120)
--- NOTE | 2016-08-26 07:10 | NUR ---
REPORT RECEIVED FROM DRY CHAIN OFFBEARER NURSE. CALL LIGHT IN REACH.
[2016-08-26 08:11] VITALS: BP 106/62
--- NOTE | 2016-08-26 08:48 | NUR ---
ASSESSMENT COMPLETED. NORCO AND XANAX PO WITH AM MEDS. CALL LIGHT IN REACH. WILL CONTINUE WITH PLAN OF CARE.
--- NOTE | 2016-08-26 10:30 | NUR ---
NO NEEDS VOICED AT THIS TIME. CALL LIGHT IN REACH.
--- NOTE | 2016-08-26 11:51 | NUR ---
QUIET IN ROOM AT PRESENT DENIES ANY NEEDS AT THIS TIME N/C AT PRESENT.
[2016-08-26 12:20] VITALS: BP 129/70
--- NOTE | 2016-08-26 13:59 | NUR ---
REQUESTING PAIN PILL AND ANXIETY MED. TOO SOON FOR XANAX BUT [facility]
--- NOTE | 2016-08-26 14:19 | NUR ---
BENNIE AND QUYEN PO. CALL LIGHT IN REACH.
[2016-08-26 15:51] VITALS: BP 105/64
--- NOTE | 2016-08-26 16:20 | NUR ---
NO NEEDS VOICED AT THIS TIME. CALL LIGHT IN REACH.
--- NOTE | 2016-08-26 18:36 | NUR ---
NO CHANGES IN INITIAL ASSESSMENT. CALL LIGHT IN REACH. WILL CONTINUE WITH PLAN OF CARE.
[2016-08-26 20:30] VITALS: BP 99/54
[2016-08-27 00:08] VITALS: BP 115/58
--- NOTE | 2016-08-27 03:21 | NUR ---
ASLEEP AT THIS TIME WITH EASY RESPIRATIONS AND NO DISTRESS NOTED. THE BED IS LOW, RAILS UP X'S 2 WITH THE CALL LIGHT AT HAND.
[2016-08-27 04:30] VITALS: BP 100/52
[2016-08-27 06:39] LABS: ALBUMIN 2.6 g/dL (3.4-5.0); ALKALINE PHOSPHATASE 39 U/L (46-116); ALT (SGPT) 17 U/L (10-68); BILIRUBIN - TOTAL 0.19 mg/dL (0.2-1.3); CALCIUM 9.1 mg/dL (8.5-10.1); CARBON DIOXIDE 34.9 mmol/L (21.0-32.0); CHLORIDE - SERUM 105 mmol/L (98-107); CREATININE - SERUM 0.5 mg/dL (0.6-1.3); PROTEIN - SERUM 5.9 g/dL (6.4-8.2); SODIUM 144 mmol/L (136-145); eGFR NON AFRICAN AMERICAN > 90 mL/min (90-120)
[2016-08-27 06:40] LABS: CALC OSMOLALITY 286 mosm/kg (275-300); GLUCOSE 143 mg/dL (74-106); POTASSIUM - SERUM 3.3 mmol/L (3.5-5.1); UREA NITROGEN 7 mg/dL (7-18)
--- NOTE | 2016-08-27 07:15 | NUR ---
REPORT RECEIVED FROM SOCIAL MEDIA DEVELOPER NURSE. CALL LIGHT IN REACH.
--- NOTE | 2016-08-27 08:03 | NUR ---
SITTING UP IN BED,WITHOUT DISTRESS.CALL LIGHT IN REACH.DOOR OPEN
[2016-08-27 08:10] VITALS: BP 119/65
--- NOTE | 2016-08-27 09:24 | NUR ---
ASSESSMENT COMPLETED. NORCO AND XANAX PO WITH AM MEDS ADMINISTERED. IN SHOWER AT THIS TIME. CALL LIGHT IN REACH. WILL CONTINUE WITH PLAN OF CARE.
--- NOTE | 2016-08-27 11:50 | NUR ---
IV LEAKING. DC'D WITH TIP INTACT. WILL RESITE AFTER SHE FINISHES LUNCH.
[2016-08-27 12:00] VITALS: BP 100/62
--- NOTE | 2016-08-27 13:42 | NUR ---
RESITED TO LEFT HAND WITH 22 GA X1 STICK. NORCO AND LACTULOSE PO. CALL LIGHT IN REACH.
[2016-08-27 15:37] VITALS: BP 98/57
--- NOTE | 2016-08-27 15:59 | NUR ---
DEPAKENE AND XANAX PO PER C/O ANXIETY. CALL LIGHT IN REACH.
--- NOTE | 2016-08-27 17:10 | NUR ---
RESTING WITH EYES CLOSED. RESP EVEN AND UNLABORED. CALL LIGHT IN REACH.
--- NOTE | 2016-08-27 18:33 | NUR ---
NORCO, POTASSIUM 40 MEQ, AND LACTULOSE PO. NO OTHER CHANGES IN INITIAL ASSESSMENT. CALL LIGHT IN REACH. WILL CONTINUE WITH PLAN OF CARE.
[2016-08-27 20:00] VITALS: BP 97/53
[2016-08-28] VITALS: BP 111/63
--- NOTE | 2016-08-28 03:10 | NUR ---
PT HAS REMAINED SITTING UP IN A CHAIR MOST OF THE EVENING AND THE EARLY NIGHT. SHE HAS ASKED FOR VARIOUS THINGS TO EAT AND IS KEEPING HER DOOR OPEN TO WATCH OUTSIDE. THE BED IS LOW, RAILS UP X'S 2 WITH THE CALL LIGHT AT HAND.
[2016-08-28 04:00] VITALS: BP 116/52
[2016-08-28 06:37] LABS: ALBUMIN 2.7 g/dL (3.4-5.0); ALKALINE PHOSPHATASE 43 U/L (46-116); ALT (SGPT) 20 U/L (10-68); BILIRUBIN - TOTAL 0.18 mg/dL (0.2-1.3); CALC OSMOLALITY 289 mosm/kg (275-300); CALCIUM 9.3 mg/dL (8.5-10.1); CARBON DIOXIDE 36.2 mmol/L (21.0-32.0); CHLORIDE - SERUM 104 mmol/L (98-107); CREATININE - SERUM 0.6 mg/dL (0.6-1.3); GLUCOSE 125 mg/dL (74-106); POTASSIUM - SERUM 3.7 mmol/L (3.5-5.1); PROTEIN - SERUM 6.1 g/dL (6.4-8.2); SODIUM 146 mmol/L (136-145); UREA NITROGEN 7 mg/dL (7-18); eGFR NON AFRICAN AMERICAN > 90 mL/min (90-120)
--- NOTE | 2016-08-28 07:25 | NUR ---
PATIENT RESTING IN BED WITH EYES CLOSED. SNORING NOTED. PATIENT AWAKENS TO VERBAL STIMULI. PATIENT DENIES ANY NEEDS AT PRESENT TIME. CALL LIGHT IN PATIENT'S REACH. WILL MONITOR.
--- NOTE | 2016-08-28 08:19 | NUR ---
PATIENT IS SITTING IN BED. SCHEDULED MORNING MEDICATIONS GIVEN TO PATIENT. PATIENT TOLERATED WELL. PATIENT REQUESTS HE XANAX FOR ANXIETY. VERBALIZED TO PATIENT THAT PRN XANAX IS SCHEDULED EVERY 8 HOURS AND IT IS NOT DUE YET. PATIENT VERBALIZED UNDERSTANDING. ASSESSMENT COMPLETED PER FLOWSHEET. O2 @ 2L PER NC. PATIENT DENIES ANY FURTHER NEEDS AT PRESENT TIME. CALL LIGHT IN PATIENT'S REACH. WILL MONITOR.
[2016-08-28 09:39] VITALS: BP 101/53
[2016-08-28 12:46] VITALS: BP 105/68
--- NOTE | 2016-08-28 13:00 | NUR ---
PATIENT EATING HER LUNCH AT BEDSIDE. PATIENT TO BE DISCHARGED HOME TODAY. PATIENT STATES THAT HER DAUGHTER WILL DRIVE HER HOME TODAY, BUT SHE DOES NOT GET OFF WORK UNTIL 3:00 PM TODAY. PATIENT DENIES ANY NEEDS. CALL LIGHT IN REACH. WILL MONITOR.
--- NOTE | 2016-08-28 15:00 | NUR ---
PATIENT SITTING UP ON THE SIDE OF BED. PATIENT WAITING FOR HER DAUGHTER TO GET OFF WORK. PATIENT'S SALINE LOCK DC'D WITH THE CATHETER TIP STILL INTACT. PATIENT TOLERATED WELL. CALL LIGHT IN REACH. WILL CONTINUE TO MONITOR.
--- NOTE | 2016-08-28 15:33 | NUR ---
DISCHARGE INSTRUCTIONS VERBALIZED TO PATIENT. PATIENT VERBALIZED UNDERSTANDING AND SIGNED DISCHARGE SHEETS.
--- NOTE | 2016-08-28 15:45 | NUR ---
PATIENT DISCHARGED VIA WHEELCHAIR TO THE CAR. DAUGHTER HERE TO DRIVE PATIENT HOME.
--- NOTE | 2016-09-20 10:28 | DS ---
PATIENT:AMBER MILLER :[birth year] MEDICAL RECORD: [id number] DISCHARGE SUMMARY ADMISSION DATE: 08/12/16 DISCHARGE DATE: 08/28/16 DATE OF ADMISSION: 08/12/2016 DATE OF DISCHARGE: 08/28/2016 DIAGNOSES: 1. Acute hypoxic and hypercapnic respiratory failure, ventilator dependent. 2. Acute exacerbation of chronic obstructive pulmonary disease. 3. Coronary artery disease. 4. Gastroesophageal reflux disease. 5. Bipolar and anxiety. 6. Hypothyroidism. 7. Arrhythmias, on propafenone. 8. Elevated ammonia level. CONSULTS: 1. Dr. Gordon. 2. Dr. Barron. STUDIES AND PROCEDURES: 1. Trach and PEG. 2. X-ray consistent with COPD. HOSPITAL COURSE: The full H&P is listed elsewhere in the chart for this 56-year-old female who was admitted with respiratory failure. She had been in the ICU on the ventilator, was treated with broad-spectrum antibiotics and aggressive pulmonary toilet for her respiratory failure and COPD exacerbation. The patient failed numerous weaning trials. Surgery was consulted. She underwent a trach and PEG for her ventilatory dependence. She will have a PT and home health at home. Surgery was consulted for possible trach and PEG; however, the patient was successfully extubated without incident. She continued to improve. Her strength improved and she was able to tolerate p.o. intake. She did require p.r.n. BiPAP at night, but moved to the floor with just supplemental oxygen. She was thought to be stable for discharge to home. Follow up in the outpatient setting. See med rec. TRANSINT:[id number] Voice Confirmation ID: [id number] DOCUMENT ID: [id number] Dictated By: KALE ANDERSON I have interviewed/examined the above patient and agree with these documented findings. SOPHIA HOOD MD at 1028 at 0948 CC: [id number] DICTATION DATE: 09/15/16 0857 TECHNICAL LEAD: 09/15/16 2014 DIS IN 08/28/16 [address] [place] [address]
== END 2016-08-28 15:45 | disposition home or self-care (01) | DRG 207 ==
LOC: D.ER 01:50 → D.MS 04:00 → D.ICU 04:00 → D.MS 08-24 20:12
PROVIDERS: Emergency Medicine; Family Medicine Adult Medicine; Internal Medicine Pulmonary Disease; ADMIT Family Medicine
PROC: 0BH17EZ Insertion of Endotracheal Airway into Trachea, Via Natural or Artificial Opening (ICD-10-PCS; principal; 2016-08-12)
PROC: 0T9B70Z Drainage of Bladder with Drainage Device, Via Natural or Artificial Opening (ICD-10-PCS; 2016-08-12)
PROC: 5A1955Z Respiratory Ventilation, Greater than 96 Consecutive Hours (ICD-10-PCS; 2016-08-12)
DX: J96.21 Acute and chronic respiratory failure with hypoxia (principal); J15.6 Pneumonia due to other Gram-negative bacteria; J44.0 Chronic obstructive pulmonary disease with (acute) lower respiratory infection; E66.2 Morbid (severe) obesity with alveolar hypoventilation; F17.203 Nicotine dependence unspecified, with withdrawal; E87.4 Mixed disorder of acid-base balance; J84.9 Interstitial pulmonary disease, unspecified; J96.22 Acute and chronic respiratory failure with hypercapnia; I25.10 Atherosclerotic heart disease of native coronary artery without angina pectoris; F41.9 Anxiety disorder, unspecified; Z91.19 Patient's noncompliance with other medical treatment and regimen; E78.5 Hyperlipidemia, unspecified; K21.9 Gastro-esophageal reflux disease without esophagitis; E03.9 Hypothyroidism, unspecified; F31.9 Bipolar disorder, unspecified; Z68.35 Body mass index [BMI] 35.0-35.9, adult; E87.6 Hypokalemia

== ENCOUNTER 2016-09-05 13:51 | Inpatient (IN) | payer MEDICARE, MEDICAID ==
[~2016-09-05] VITALS: Ht 162.6 cm; Wt 93.8 kg
[2016-09-05 08:00] VITALS: BP 140/79
[~2016-09-05 13:51] MED LIST changes: +FUROSEMIDE20 MG PO; +POTASSIUM CHLO10 ME1 PO; +PROPAFENONE HC150 MG PO
--- NOTE | 2016-09-05 14:01 | NUR ---
TRANSFER FROM ADMISSIONS BY W/C. OREINTED TO ROOM. CALL LIGHT IN REACH. WILL CONT. PLAN OF CARE.
[2016-09-05 14:13] VITALS: BP 116/70; BMI 33.9
[2016-09-05 14:47] LABS: BASOPHILS 0.5 % (0.0-2.0); EOSINOPHILS 1.1 % (0-7); HEMATOCRIT 38.2 % (36.0-48.0); HEMOGLOBIN 11.8 g/dL (12-16); IMMATURE GRANULOCYTES 1.8 % (0-5); LYMPHOCYTES 28.3 % (15-50); MCH 29.8 pg (26.0-34.0); MCHC 30.9 g/dL (31.0-37.0); MCV 96.5 fL (80.0-100.0); MEAN PLATELET VOLUME 9.9 fL (7.4-10.4); MONOCYTES 9.5 % (2-11); NEUTROPHILS 58.8 % (40-80); RBC 3.96 10x6/uL (4.00-5.40); RDW 14.5 % (11.5-14.5); WBC 4.4 10x3/uL (4.8-10.8)
[2016-09-05 14:57] LABS: PLATELET COUNT 131 10x3/uL (130-400)
[2016-09-05 15:05] LABS: ALBUMIN 2.6 g/dL (3.4-5.0); ALKALINE PHOSPHATASE 46 U/L (46-116); ALT (SGPT) 29 U/L (10-68); CALC OSMOLALITY 285 mosm/kg (275-300); CALCIUM 8.4 mg/dL (8.5-10.1); CARBON DIOXIDE 38.8 mmol/L (21.0-32.0); CHLORIDE - SERUM 101 mmol/L (98-107); CREATININE - SERUM 0.5 mg/dL (0.6-1.3); GLUCOSE 116 mg/dL (74-106); MAGNESIUM - SERUM 1.4 mg/dL (1.8-2.4); POTASSIUM - SERUM 3.1 mmol/L (3.5-5.1); PROTEIN - SERUM 5.6 g/dL (6.4-8.2); SODIUM 145 mmol/L (136-145); UREA NITROGEN 2 mg/dL (7-18); eGFR NON AFRICAN AMERICAN > 90 mL/min (90-120)
[2016-09-05 15:46] VITALS: BP 104/58
--- NOTE | 2016-09-05 19:03 | NUR ---
SITTING UP IN CHAIR AT BEDSIDE, AWAKE AND ALERT, SPEECH SLURRED, IV PATENT TO RIGHT FOREARM, O2@2LNC, BILATERAL FEET EDEMATOUS, ELEVATED ON BED, NO DISTRESS NOTED, WILL MONITOR
[2016-09-06] VITALS: BP 104/64
--- NOTE | 2016-09-06 02:21 | NUR ---
PT LAYING IN BED NO DISTRESS OBSERVED CALL LIGHT IN REACH SRX2 BED LOW AND LOCKED RESPERATIONS EVEN AND UNLABORED TELEMETRY READING 96 SR WILL MONITOR
[2016-09-06 04:00] VITALS: BP 121/61
--- NOTE | 2016-09-06 05:45 | NUR ---
RESTING QUIETLY IN BED, NO DISTRESS NOTED
[2016-09-06 05:49] LABS: BASOPHILS 0.3 % (0.0-2.0); EOSINOPHILS 2.7 % (0-7); HEMATOCRIT 34.1 % (36.0-48.0); HEMOGLOBIN 10.3 g/dL (12-16); IMMATURE GRANULOCYTES 1.2 % (0-5); LYMPHOCYTES 38.7 % (15-50); MCH 29.4 pg (26.0-34.0); MCHC 30.2 g/dL (31.0-37.0); MCV 97.4 fL (80.0-100.0); MEAN PLATELET VOLUME 9.9 fL (7.4-10.4); MONOCYTES 8.6 % (2-11); NEUTROPHILS 48.5 % (40-80); PLATELET COUNT 117 10x3/uL (130-400); RDW 15.1 % (11.5-14.5); WBC 3.4 10x3/uL (4.8-10.8)
[2016-09-06 06:12] LABS: ALBUMIN 2.2 g/dL (3.4-5.0); ALKALINE PHOSPHATASE 39 U/L (46-116); ALT (SGPT) 25 U/L (10-68); BILIRUBIN - TOTAL 0.35 mg/dL (0.2-1.3); CALC OSMOLALITY 286 mosm/kg (275-300); CALCIUM 8.1 mg/dL (8.5-10.1); CHLORIDE - SERUM 103 mmol/L (98-107); CREATININE - SERUM 0.5 mg/dL (0.6-1.3); GLUCOSE 84 mg/dL (74-106); MAGNESIUM - SERUM 1.5 mg/dL (1.8-2.4); POTASSIUM - SERUM 3.1 mmol/L (3.5-5.1); SODIUM 147 mmol/L (136-145); UREA NITROGEN 2 mg/dL (7-18); eGFR NON AFRICAN AMERICAN > 90 mL/min (90-120)
[2016-09-06 06:27] LABS: PHOSPHOROUS 3.1 mg/dL (2.5-4.9)
[2016-09-06 08:00] VITALS: BP 105/65
--- NOTE | 2016-09-06 09:34 | NUR ---
TELEMETRY ST. BACK ON BIPAP AFTER BRK. CALL LIGHT IN REACH. WILL CONT. PLAN OF CARE.
[2016-09-06 12:00] VITALS: BP 98/65
[2016-09-06 13:31] VITALS: Ht 162.6 cm; Wt 93.8 kg
--- NOTE | 2016-09-06 14:37 | NUR ---
SPUTUM SPECIMEN COLLECTED BY RT AND TAKEN TO LAB. WILL MONITOR.
[2016-09-06 16:00] VITALS: BP 94/52
[2016-09-06 19:00] VITALS: BP 106/65
--- NOTE | 2016-09-06 19:03 | NUR ---
SITTING UP IN BED, AAOX3, SKIN WARM AND DRY, RESP SHALLOW, IV PATENT TO RIGHT FOREARM, O2@2LNC, NO DISTRESS NOTED
[2016-09-07] VITALS: BP 100/80
[2016-09-07 04:00] VITALS: BP 109/62
--- NOTE | 2016-09-07 06:08 | NUR ---
RESTING QUIETLY IN BED, NO DISTRESS NOTED
[2016-09-07 07:10] LABS: BASOPHILS 0.3 % (0.0-2.0); EOSINOPHILS 3.3 % (0-7); HEMATOCRIT 33.6 % (36.0-48.0); IMMATURE GRANULOCYTES 0.6 % (0-5); LYMPHOCYTES 36.3 % (15-50); MCH 29.4 pg (26.0-34.0); MCHC 29.8 g/dL (31.0-37.0); MCV 98.8 fL (80.0-100.0); MEAN PLATELET VOLUME 9.6 fL (7.4-10.4); MONOCYTES 14.1 % (2-11); NEUTROPHILS 45.4 % (40-80); PLATELET COUNT 123 10x3/uL (130-400); RDW 15.2 % (11.5-14.5); WBC 3.3 10x3/uL (4.8-10.8)
[2016-09-07 07:20] LABS: ALBUMIN 2.2 g/dL (3.4-5.0); ALKALINE PHOSPHATASE 40 U/L (46-116); ALT (SGPT) 22 U/L (10-68); CALCIUM 8.1 mg/dL (8.5-10.1); CHLORIDE - SERUM 103 mmol/L (98-107); CREATININE - SERUM 0.5 mg/dL (0.6-1.3); GLUCOSE 99 mg/dL (74-106); MAGNESIUM - SERUM 1.6 mg/dL (1.8-2.4); POTASSIUM - SERUM 3.1 mmol/L (3.5-5.1); PROTEIN - SERUM 5.5 g/dL (6.4-8.2); SODIUM 148 mmol/L (136-145); eGFR NON AFRICAN AMERICAN > 90 mL/min (90-120)
[2016-09-07 07:21] LABS: CALC OSMOLALITY 290 mosm/kg (275-300); UREA NITROGEN 3 mg/dL (7-18)
[2016-09-07 08:02] VITALS: BP 115/71
--- NOTE | 2016-09-07 09:44 | NUR ---
RESP UL ON 02 4L NC. IV PATENT. CALL LIGHT IN REACH. TELEMETRY ST. WILL CONT. PLAN OF CARE.
[2016-09-07 11:42] VITALS: BP 100/64
[2016-09-07 16:00] VITALS: BP 108/66
--- NOTE | 2016-09-07 19:03 | NUR ---
SITTING UP IN BED, AAOX3, SKIN WARM AND DRY, RESP SHALLOW, O2@2LNC, NO IV ACCESS AT THIS TIME, WILL RESITE, NO DISTRESS NOTED
[2016-09-07 20:00] VITALS: BP 133/77
[2016-09-08] VITALS: BP 100/62
[2016-09-08 04:00] VITALS: BP 94/61
--- NOTE | 2016-09-08 04:28 | NUR ---
RAILROAD CAR LETTERER AT BEDSIDE TO OBTAIN VITALS, CALL LIGHT IN REACH. WILL CONTINUE WITH PLAN OF CARE.
[2016-09-08 06:02] LABS: BASOPHILS 0.3 % (0.0-2.0); EOSINOPHILS 3.3 % (0-7); HEMATOCRIT 34.2 % (36.0-48.0); HEMOGLOBIN 10.1 g/dL (12-16); IMMATURE GRANULOCYTES 0.3 % (0-5); LYMPHOCYTES 48.1 % (15-50); MCH 29.2 pg (26.0-34.0); MCHC 29.5 g/dL (31.0-37.0); MCV 98.8 fL (80.0-100.0); MEAN PLATELET VOLUME 9.3 fL (7.4-10.4); MONOCYTES 10.3 % (2-11); NEUTROPHILS 37.7 % (40-80); PLATELET COUNT 101 10x3/uL (130-400); RBC 3.46 10x6/uL (4.00-5.40); RDW 15.1 % (11.5-14.5); WBC 3.6 10x3/uL (4.8-10.8)
[2016-09-08 06:32] LABS: ALBUMIN 2.2 g/dL (3.4-5.0); ALKALINE PHOSPHATASE 42 U/L (46-116); ALT (SGPT) 21 U/L (10-68); CALC OSMOLALITY 289 mosm/kg (275-300); CALCIUM 7.9 mg/dL (8.5-10.1); CHLORIDE - SERUM 102 mmol/L (98-107); CREATININE - SERUM 0.5 mg/dL (0.6-1.3); GLUCOSE 86 mg/dL (74-106); MAGNESIUM - SERUM 1.4 mg/dL (1.8-2.4); POTASSIUM - SERUM 3.4 mmol/L (3.5-5.1); PROTEIN - SERUM 5.6 g/dL (6.4-8.2); SODIUM 148 mmol/L (136-145); UREA NITROGEN 3 mg/dL (7-18); eGFR NON AFRICAN AMERICAN > 90 mL/min (90-120)
[2016-09-08 07:09] LABS: CARBON DIOXIDE 45.4 mmol/L (21.0-32.0)
--- NOTE | 2016-09-08 07:15 | NUR ---
RESTING QUIETLY NAD NOTED
--- NOTE | 2016-09-08 07:40 | NUR ---
ASSESSMENT COMPLETED. TELEMERTY SHOWS SR. IV TO RIGHT FA. ON BIPAP. ALERT AND ORIENTED. CALL LIGHT IN REACH WITH SR UP. WILL MONITOR
[2016-09-08 08:07] VITALS: BP 111/73
[2016-09-08 09:57] LABS: % SATURATION 16 % (15-55); IRON 39 ug/dl (35-150); TOTAL IRON BIND CAPACITY 230 ug/dl (260-445); UNSAT IRON BIND CAPACITY 191 ug/dl (150-375)
[2016-09-08 10:14] LABS: THYROID STIMULATING HORMONE 1.69 uIU/mL (0.36-3.74)
--- NOTE | 2016-09-08 10:55 | NUR ---
Nutrition follow-up: Diet: low sodium PO intake 100% of most meals Labs reviewed Wt: 209# PO intake is good at this time. RDN following.
[2016-09-08 11:36] VITALS: BP 120/75
--- NOTE | 2016-09-08 15:29 | NUR ---
LYING QUIETLY WITH BIPAP ON. NO DISTRESS NOTED.TELEMERTY SHOWS SR. WILL MONITOR
[2016-09-08 15:54] VITALS: BP 110/70
--- NOTE | 2016-09-08 17:03 | NUR ---
Patient Name: AMBER MILLER Admission Status: Elective Accout number: [id number] Admission Date: 09-05-2016 : 1960 Admission Diagnosis:SHORTNESS OF BREATH Attending: FLORIAN Current LOS: 3 Anticipated DC Date: Planned Disposition: Home Primary Insurance: [employer] CHOICE PPO MCR ADVANT Discharge Planning Comments: * Is the patient Alert and Oriented? Yes 0 * How many steps to enter\exit or inside your home? 12 0 * PCP DR. DEL REAL 0 * Pharmacy [facility] 0 * Preadmission Environment Home with Family 0 * ADLs Independent 0 * Equipment Nebulizer Oxygen 0 * Other Equipment HOME AND PORTABLE OXYGEN [facility] - MEDICAL EQUIPMENT PROVIDER 0 * List name and contact numbers for known caregivers / representatives who currently or will assist patient after discharge: RITA OLIVA, DAUGHTER, 0 * Community resources currently utilized None 0 * Please name any agencies selected above. NONE 0 * Additional services required to return to the preadmission environment? No 0 * Can the patient safely return to the preadmission environment? Yes 0 * Has this patient been hospitalized within the prior 30 days at any hospital? Yes 0 CM RECEIVED ORDER TO ARRANGE NIPPV FOR HOME USE. CM MET WITH PT IN ROOM TO DISCUSS DISCHARGE PLANNING AND NEEDS. PT REPORTS LIVING AT HOME INDEPENDENTLY WITH HER ADULT DAUGHTER. PT HAS HOME AND PORTABLE OXYGEN AND NUBULIZER FROM [facility] ([facility]). PT HAS NO OUTSIDE SERVICES ASSISTING IN THE HOME. CM DISCUSSED AVAILABILITY OF HOME HEALTH, REHAB SERVICES AND MEDICAL EQUIPMENT. PT DENIES NEED FOR REHAB SERVCIES, WILL CONSIDER HOME HEALTH AND WOULD LIKE NIPPV FROM [facility]. PT REPORTS HER DAUGHTER WILL PICK HER UP FOR DISCHARGE HOME. CM CALLED [facility] [phone], SPOKE TO RAMOS AND PROVIDED REFERRAL INFORMATION, VERIFIED PT IS ACTIVE WITH [facility]. CM FAXED REFERRAL INFORMATION TO [facility] AT [phone]. CM WAITING ARRANGEMENT OF NIPPV FOR HOME USE BY [facility]. CM WILL FOLLOW UP WITH PT PRIOR TO DISCHARGE REGARDING DECISION ON NEED OF HOME HEALTH SERVICES. Recovery Manager: Alireza Recio
--- NOTE | 2016-09-08 19:53 | NUR ---
NORCO 1 TAB GIVEN FOR C/O PAIN TO BACK AND NECK.
[2016-09-08 20:00] VITALS: BP 121/72
--- NOTE | 2016-09-08 21:55 | NUR ---
HS MEDS GIVEN WITH FRESH ICE WATER, NO NEEDS EXPRESSED AT THIS TIME.
--- NOTE | 2016-09-08 23:42 | NUR ---
RT AT BED SIDE, PT PLACED ON BIPAP.
[2016-09-09] VITALS: BP 105/63
--- NOTE | 2016-09-09 03:14 | NUR ---
RESTING WITH EYES CLOSED, RESPERATIONS EVEN, NO S/S DISTRESS NOTED.
[2016-09-09 04:00] VITALS: BP 104/60
--- NOTE | 2016-09-09 04:04 | NUR ---
PACKAGING MANAGER AT BEDSIDE TO OBTAIN VITALS, CALL LIGHT IN REACH. WILL CONTINUE TO MONITOR.
[2016-09-09 06:21] LABS: BASOPHILS 0 % (0.0-2.0); EOSINOPHILS 3.3 % (0-7); HEMATOCRIT 34.2 % (36.0-48.0); HEMOGLOBIN 10.1 g/dL (12-16); LYMPHOCYTES 49.5 % (15-50); MCH 29.1 pg (26.0-34.0); MCHC 29.5 g/dL (31.0-37.0); MCV 98.6 fL (80.0-100.0); MEAN PLATELET VOLUME 9.2 fL (7.4-10.4); MONOCYTES 6.6 % (2-11); NEUTROPHILS 40.6 % (40-80); PLATELET COUNT 111 10x3/uL (130-400); RBC 3.47 10x6/uL (4.00-5.40); RDW 14.6 % (11.5-14.5)
[2016-09-09 06:57] LABS: ALBUMIN 2.2 g/dL (3.4-5.0); ALKALINE PHOSPHATASE 43 U/L (46-116); ALT (SGPT) 19 U/L (10-68); BILIRUBIN - TOTAL 0.38 mg/dL (0.2-1.3); CALC OSMOLALITY 291 mosm/kg (275-300); CALCIUM 8.8 mg/dL (8.5-10.1); CHLORIDE - SERUM 103 mmol/L (98-107); CREATININE - SERUM 0.5 mg/dL (0.6-1.3); GLUCOSE 86 mg/dL (74-106); MAGNESIUM - SERUM 1.5 mg/dL (1.8-2.4); POTASSIUM - SERUM 3.3 mmol/L (3.5-5.1); PROTEIN - SERUM 5.7 g/dL (6.4-8.2); SODIUM 149 mmol/L (136-145); UREA NITROGEN 4 mg/dL (7-18); eGFR NON AFRICAN AMERICAN > 90 mL/min (90-120)
[2016-09-09 06:58] LABS: CARBON DIOXIDE 47.7 mmol/L (21.0-32.0)
--- NOTE | 2016-09-09 07:15 | NUR ---
LATE ENTRY- PT SITTING UP IN BED SLEEPING NO S/S DISTRESS WILL CONTINUE TO MONITOR.
[2016-09-09 08:04] VITALS: BP 121/72
--- NOTE | 2016-09-09 09:28 | NUR ---
Patient Name: AMBER MILLER Encounter No: [id number] : 1960 Primary Insurance: [employer] CHOICE PPO MCR ADVANT Anticipated DC Date: Planned Disposition: Home DCP follow-up note: CM RECEIVED CALL FROM GIORGIO OF [facility] [phone], SHE HAS RECEIVED REFERRAL; PT'S NEW INSURANCE IS NOT ACCEPTED BY [facility] (HU[employer]NA GOLD) AND THE ONLY PROVIDER FOR THAT INSURANCE IS [facility]. GIORGIO HAS SPOKEN TO PT'S DAUGHTER WHO IS UPSET THAT [facility] IS NOT IN NETWORK AND WILL SPEAK TO PT ABOUT CHANGING BACK TO MEDICARE SO THAT [facility] CAN PROVIDE THE EQUIPMENT. GIORGIO WILL CALL CM WITH PT'S DECISION REGARDING INSURANCE AND MEDICAL EQUIPMENT PROVIDER. CM WAITING PT DECISION REGARDING KEEPING OR CHANGING INSURANCE WELL HAS HER DECISION ON PROVIDER ([facility] VS [facility]). CM WILL FOLLOW UP WITH PT PRIOR TO DISCHARGE REGARDING DECISION ON NEED OF HOME HEALTH SERVICES. Inspector Filters: Alireza Recio
[2016-09-09 11:48] VITALS: BP 103/59
[2016-09-09 15:46] VITALS: BP 111/69
--- NOTE | 2016-09-09 16:05 | NUR ---
Patient Name: AMBER MILLER Encounter No: [id number] : 1960 Primary Insurance: [employer] CHOICE PPO MCR ADVANT Anticipated DC Date: Planned Disposition: Home DCP follow-up note: CM SPOKE TO PT IN ROOM REGARDING NIPPV ORDER AND [facility] BEING OUT OF NETWORK WITH HER CURRENT INSURANCE. PT IS NOT WANTING TO CHANGE HER INSURANCE AND PT WANTS CM TO SEND REFERRAL TO [facility], THE IN NETWORK PROVIDER FOR HER INSURANCE. PT IS THINKING THAT HOME HEALTH IS A GOOD IDEA AND WILL SPEAK TO HER DAUGHTER ABOUT A PROVIDER BEFORE MAKING A DECISION. CM CALLED [facility], , SPOKE TO SYMONE WHO WILL RECEIVE REFERRAL AND PROVIDE TO TARA FOR ORDER PROCESSING. CM FAXED REFERRAL TO [facility] AT [phone]. CM WAITING PT AND FAMILY DECISION ON HOME HEALTH. CM WAITING NIPPV ORDER PROCESSING AND EQUIPMENT DELIVERY BY [facility]. Alireza Recio, CASE MANAGEMENT
--- NOTE | 2016-09-09 17:45 | NUR ---
PT SITTING UP IN BED DENIES NEEDS AT THIS TIME WILL CONTINUE TO MONITOR.
[2016-09-09 20:00] VITALS: BP 123/72
[2016-09-10] VITALS: BP 108/69
--- NOTE | 2016-09-10 01:47 | NUR ---
PT RESTING SOUNDLY WITHOUT C/O OR DISTRESS NOTED. CALL LIGHT WITHIN REACH. WILL CONT TO MONITOR.
[2016-09-10 04:00] VITALS: BP 106/63
[2016-09-10 06:50] LABS: BASOPHILS 0 % (0.0-2.0); EOSINOPHILS 0 % (0-7); HEMATOCRIT 34.7 % (36.0-48.0); HEMOGLOBIN 10.5 g/dL (12-16); IMMATURE GRANULOCYTES 0.5 % (0-5); LYMPHOCYTES 16.4 % (15-50); MCH 29.1 pg (26.0-34.0); MCHC 30.3 g/dL (31.0-37.0); MCV 96.1 fL (80.0-100.0); MEAN PLATELET VOLUME 9.8 fL (7.4-10.4); MONOCYTES 2.6 % (2-11); NEUTROPHILS 80.5 % (40-80); PLATELET COUNT 132 10x3/uL (130-400); RBC 3.61 10x6/uL (4.00-5.40); RDW 14.4 % (11.5-14.5); WBC 4.3 10x3/uL (4.8-10.8)
[2016-09-10 07:35] LABS: ALBUMIN 2.4 g/dL (3.4-5.0); ALKALINE PHOSPHATASE 44 U/L (46-116); ALT (SGPT) 19 U/L (10-68); CALCIUM 8.8 mg/dL (8.5-10.1); CHLORIDE - SERUM 102 mmol/L (98-107); CREATININE - SERUM 0.6 mg/dL (0.6-1.3); MAGNESIUM - SERUM 1.7 mg/dL (1.8-2.4); PHOSPHOROUS 2.5 mg/dL (2.5-4.9); POTASSIUM - SERUM 4.1 mmol/L (3.5-5.1); PROTEIN - SERUM 6.2 g/dL (6.4-8.2); SODIUM 145 mmol/L (136-145); eGFR NON AFRICAN AMERICAN > 90 mL/min (90-120)
[2016-09-10 07:37] LABS: CALC OSMOLALITY 288 mosm/kg (275-300); GLUCOSE 135 mg/dL (74-106); UREA NITROGEN 8 mg/dL (7-18)
[2016-09-10 07:38] LABS: CARBON DIOXIDE 43.2 mmol/L (21.0-32.0)
--- NOTE | 2016-09-10 07:53 | NUR ---
PT SITTING UP IN BED DENIES NEEDS WILL CONTINUE TO MONITOR.
[2016-09-10 08:02] VITALS: BP 105/64
[2016-09-10 11:18] VITALS: BP 120/65
[2016-09-10 15:50] VITALS: BP 107/66
--- NOTE | 2016-09-10 19:53 | NUR ---
INITIAL ROUNDS COMPLETED AT 1905 HRS. PT DENIED ANY DISCOMFORT. ASSESSMENT COMPLETED 1935 HRS. SR PER CM HR 100. O2 4LNC. ALERT AND ORIENTED TO PERSON, PLACE AND TIME. IV TO RFA WITH NS AT 10CC/HR. LUNGS DIMINISHED IN BASES BILAT. WILL CONTINUE TO MONITOR. SR UP X2, CALL LIGHT WITHIN REACH.
[2016-09-10 20:28] VITALS: BP 111/64; BP 137/87
--- NOTE | 2016-09-10 22:03 | NUR ---
PM MMEDS GIVEN. RT CALLED TO PLACE PT BACK ON BPAP. WILL CONTINUE TO MONITOR.
[2016-09-11 00:19] VITALS: BP 118/60
--- NOTE | 2016-09-11 00:41 | NUR ---
PT RESTING WITH EYES CLOSED. RESP EVEN AND REGULAR. SR UP X2, CALL LIGHT WITHIN REACH. BIPAP IN USE.
--- NOTE | 2016-09-11 02:35 | NUR ---
PT RESTING WITH EYES CLOSED. RESP EVEN AND REGULAR. BIPAP IN USE. SR UP X2, CALL LIGHT WITHIN REACH.
--- NOTE | 2016-09-11 04:28 | NUR ---
ASSISTED PT TO BR. VOIDEDLARGE AMOUNT OF YELLOW URINE. ASSSITED BACK TO BED. O2 4LNC WHILE IN BR. BIPAP PLACED BACK ON WHEN BACK TO BED. O2 SAT 79% WITH ACTIVITY. UP TO 96% WITH A FEW MINUTES. WILL CONTINUE TO MONITOR.
[2016-09-11 05:17] VITALS: BP 99/49
[2016-09-11 05:36] LABS: BASOPHILS 0 % (0.0-2.0); EOSINOPHILS 0 % (0-7); HEMATOCRIT 34.9 % (36.0-48.0); HEMOGLOBIN 10.4 g/dL (12-16); IMMATURE GRANULOCYTES 0.3 % (0-5); LYMPHOCYTES 10.7 % (15-50); MCH 29.4 pg (26.0-34.0); MCHC 29.8 g/dL (31.0-37.0); MEAN PLATELET VOLUME 9.4 fL (7.4-10.4); PLATELET COUNT 137 10x3/uL (130-400); RBC 3.54 10x6/uL (4.00-5.40)
[2016-09-11 05:47] LABS: MCV 98.6 fL (80.0-100.0); WBC 6.6 10x3/uL (4.8-10.8)
[2016-09-11 05:52] LABS: CALC OSMOLALITY 287 mosm/kg (275-300); CALCIUM 8.7 mg/dL (8.5-10.1); CARBON DIOXIDE 36.3 mmol/L (21.0-32.0); CHLORIDE - SERUM 103 mmol/L (98-107); CREATININE - SERUM 0.6 mg/dL (0.6-1.3); GLUCOSE 161 mg/dL (74-106); MAGNESIUM - SERUM 1.9 mg/dL (1.8-2.4); POTASSIUM - SERUM 4.6 mmol/L (3.5-5.1); SODIUM 143 mmol/L (136-145); eGFR NON AFRICAN AMERICAN > 90 mL/min (90-120)
[2016-09-11 05:58] LABS: UREA NITROGEN 13 mg/dL (7-18)
--- NOTE | 2016-09-11 06:37 | NUR ---
ABG'S IMPROVED THIS AM. VSS THROUGHOUT NIGHT. PT DENIED ANY DISCOMFORT. NEEDS MET; WILL CONTINUE TO MONITOR.
[2016-09-11 07:41] VITALS: BP 110/65
--- NOTE | 2016-09-11 08:00 | NUR ---
INTRODUCED MYSELF TO PT PRIMARY RN FOR TODAYS SHIFT. PT IS RESTING QUIETLY SITTING UP IN BED EATING BREAKFAST. RR NONLABORED WITH NC @3L IN PLACE. PT STATES SHE SLEPT "OKAY" PT IS REQUESTING HER PRN XANAX WITH HER MORNING MED PASS AND WILL BE PROVIDED WITH IT. STUDENT RN WILL BE GIVING MORNING MEDS WITH INSTRUCTOR. PT VOICED SHE IS OKAY WITH THAT. PT DENIES ANY CURRENT PAIN OR NEEDS. CL IN REACH, WILL CPOC.
[2016-09-11 11:23] VITALS: BP 113/69
--- NOTE | 2016-09-11 15:10 | NUR ---
ADMINISTERED SCHEDULED MEDS. PT IS RESTING QUIETLY IN BED. RR NONLABORED WITH NC @4L IN PLACE. PLACED NEW TEGADERM ON PTS R.FA PIV R/T IT STARTING TO PEEL OFF. NEWLY DATED, AND INITIALED. SWAB CAPS IN USE. 1/2NS INFUSING @10ML/HR TO KEEP PIV KVO. PT DENIES ANY CURRENT PAIN OR NEEDS AT THIS TIME. CL IN REACH, BED IN LOWEST, SIDE RAILS X2. WILL CPOC.
[2016-09-11 15:24] VITALS: BP 120/74
[2016-09-11 19:00] VITALS: BP 117/55
--- NOTE | 2016-09-11 19:03 | NUR ---
SITTING UP IN BED, AAOX3, SKIN WARM AND DRY, RESP UNLABORED, IV PATENT TO RIGHT FOREARM, O2@4LNC, DENIES NEEDS
[2016-09-12] VITALS: BP 126/59
[2016-09-12 04:00] VITALS: BP 118/69
--- NOTE | 2016-09-12 05:24 | NUR ---
SITTING UP IN BED, O2@4LNC, NO DISTRESS NOTED
[2016-09-12 05:35] LABS: BASOPHILS 0 % (0.0-2.0); EOSINOPHILS 0 % (0-7); HEMATOCRIT 37.1 % (36.0-48.0); HEMOGLOBIN 11.1 g/dL (12-16); IMMATURE GRANULOCYTES 0.9 % (0-5); LYMPHOCYTES 10.9 % (15-50); MCH 29.4 pg (26.0-34.0); MCHC 29.9 g/dL (31.0-37.0); MCV 98.4 fL (80.0-100.0); MEAN PLATELET VOLUME 9.6 fL (7.4-10.4); MONOCYTES 1.7 % (2-11); NEUTROPHILS 86.5 % (40-80); PLATELET COUNT 151 10x3/uL (130-400); RBC 3.77 10x6/uL (4.00-5.40); RDW 14.9 % (11.5-14.5); WBC 5.8 10x3/uL (4.8-10.8)
--- NOTE | 2016-09-12 05:59 | NUR ---
NO CHANGES FROM PREVIOUS ASSESSMENT, CALL LIGHT IN REACH. WILL CONTINUE WITH PLAN OF CARE.
[2016-09-12 06:06] LABS: CALC OSMOLALITY 291 mosm/kg (275-300); CALCIUM 9.4 mg/dL (8.5-10.1); CARBON DIOXIDE 36.7 mmol/L (21.0-32.0); CHLORIDE - SERUM 103 mmol/L (98-107); CREATININE - SERUM 0.6 mg/dL (0.6-1.3); GLUCOSE 165 mg/dL (74-106); POTASSIUM - SERUM 4.2 mmol/L (3.5-5.1); SODIUM 144 mmol/L (136-145); UREA NITROGEN 15 mg/dL (7-18); eGFR NON AFRICAN AMERICAN > 90 mL/min (90-120)
--- NOTE | 2016-09-12 07:30 | NUR ---
0645-AM ROUNDING DONE WITH NO COMPLAINTS, DENIES NEEDS AT PRESENT TIME. ON HEART MONITOR SHOWING SR, HR 80. IV SEEN INFUSING TO RIGHT FA AT 20 CC/HR. ON 4L PER NC. BIPAP AT BEDSIDE. WILL CONTINUE TO MONITOR.
[2016-09-12 08:07] VITALS: BP 128/65
--- NOTE | 2016-09-12 10:32 | NUR ---
Patient Name: AMBER MILLER Encounter No: [id number] : 1960 Primary Insurance: [employer] CHOICE PPO MCR ADVANT Anticipated DC Date: Planned Disposition: Home DCP follow-up note: CM RECEIVED CALL FROM [facility], , SPOKE TO TARA WHO IS PROCESSING PT'S ORDER; PT QUALIFIES FOR TRILOGY AND TARA WILL FAXED ORDER FOR DR. BERNARD. CM FAXED REFERRAL TO DR. HENRY FOR SIGNATURE AT HIS OFFICE. CM TO FAX SIGNED ORDER UPON RECEIPT TO [facility] AT [phone]. CM SPOKE TO PT IN ROOM, NOTIFIED OF PROGRESS TOWARD GETTING NIPPV. CM DISCUSSED INPATIENT, [facility]S AND HOME HEALTH. PT WOULD LIKE TO BE CONSIDERED FOR INPATIENT REHAB AT [facility], WILL NOT CONSIDER CARE HOME REHAB AT THIS TIME AND WILL CONSIDER HOME HEALTH IF DENIED INPATIENT REHAB AT [facility]. IMPORTANT MESSAGE FROM [employer] PROVIDED AND EXPLAINED. CM WAITING COMPLETION OF INPATIENT REHAB PRESCREEN AND INSURANCE AUTHORIZATION DETERMINATION. CM WAITING NIPPV ORDER PROCESSING AND EQUIPMENT DELIVERY BY [facility] TO FAX SIGNED ORDER UPON RECEIPT TO [facility] AT [phone]. Alireza Recio, CASE MANAGEMENT
--- NOTE | 2016-09-12 10:44 | NUR ---
RT TO PLACE PATIENT BACK ON BIPAP, TO LEAVE ON UNTIL NOON. PATIENT STATES TO UNDERSTADNING.
--- NOTE | 2016-09-12 11:16 | NUR ---
Rehab Note- Prescreen order received. The patient has [employer] & requires a Pre Auth prior to IRF stay. Need OT eval & patient has not received any PT since 09/09/16 prior to starting Pre Auth process. Thank you for this referral! Cori Gonzalez RN Clinical Liaison, [facility]
--- NOTE | 2016-09-12 11:31 | NUR ---
STILL WITH BIPAP ON, DENIES NEEDS.
[2016-09-12 12:07] VITALS: BP 112/66
--- NOTE | 2016-09-12 15:21 | NUR ---
RESTING WITH EYES CLOSED, ON BIPAP. RESP ARE EVEN AND NON LABORED. CALL LIGHT IN REACH. WILL CONTINUE TO MONITOR.
[2016-09-12 16:00] VITALS: BP 107/69
--- NOTE | 2016-09-12 16:41 | NUR ---
Patient Name: AMBER MILLER Encounter No: [id number] : 1960 Primary Insurance: [employer] CHOICE PPO MCR ADVANT Anticipated DC Date: Planned Disposition: INPATIENT REHAB External Planned Provider: [facility] INPATIENT REHAB DCP follow-up note: CM SPOKE TO DR. HENRY, OBTAINED SIGNATURE ON DETAILED WRITTEN ORDER, FAXED SIGNED ORDER TO [facility] AT [phone]. CM WAITING COMPLETION OF INPATIENT REHAB PRESCREEN AND INSURANCE AUTHORIZATION DETERMINATION. CM WAITING NIPPV ORDER PROCESSING AND EQUIPMENT DELIVERY BY [facility]. Alireza Recio, CASE MANAGEMENT
--- NOTE | 2016-09-12 17:16 | NUR ---
DENIES NEEDS AT PRESENT TIME. WILL CONTINUE TO MONITOR.
[2016-09-12 19:00] VITALS: BP 100/49
--- NOTE | 2016-09-12 19:03 | NUR ---
SITTING UP IN BED, AAOX3, SKIN WARM AND DRY, RESP UNLABORED, IV PATENT TO RIGHT FOREARM, O2@4LNC, NO DISTRESS NOTED
[2016-09-13] VITALS: BP 103/80
--- NOTE | 2016-09-13 01:01 | NUR ---
PT RESTING, BED LOW AND LOCKED, CALL LIGHT IN REACH. TLELMETRY SHOWING 75 BPM WITH NSR. RESPIRATIONS UNLABORED, USING BIPAP WITH 4L O2. NO S&S OF ACUTE DISTRESS NOTED. WILL CONTINUE TO MONITOR.
[2016-09-13 04:00] VITALS: BP 101/56
[2016-09-13 05:05] LABS: BASOPHILS 0 % (0.0-2.0); EOSINOPHILS 0.3 % (0-7); HEMATOCRIT 37.2 % (36.0-48.0); HEMOGLOBIN 11.1 g/dL (12-16); IMMATURE GRANULOCYTES 1.1 % (0-5); MCHC 29.8 g/dL (31.0-37.0); MCV 97.1 fL (80.0-100.0); MEAN PLATELET VOLUME 9.2 fL (7.4-10.4); NEUTROPHILS 53.6 % (40-80); PLATELET COUNT 137 10x3/uL (130-400); RBC 3.83 10x6/uL (4.00-5.40); RDW 14.9 % (11.5-14.5); WBC 6.4 10x3/uL (4.8-10.8)
[2016-09-13 05:13] LABS: CALCIUM 8.8 mg/dL (8.5-10.1); CHLORIDE - SERUM 103 mmol/L (98-107); CREATININE - SERUM 0.7 mg/dL (0.6-1.3); SODIUM 146 mmol/L (136-145); UREA NITROGEN 12 mg/dL (7-18); eGFR NON AFRICAN AMERICAN > 90 mL/min (90-120)
[2016-09-13 05:15] LABS: CALC OSMOLALITY 290 mosm/kg (275-300); CARBON DIOXIDE 43.3 mmol/L (21.0-32.0); GLUCOSE 95 mg/dL (74-106); POTASSIUM - SERUM 3.3 mmol/L (3.5-5.1)
--- NOTE | 2016-09-13 06:43 | NUR ---
RESTING QUIETLY IN BED, NO DISTRESS NOTED
--- NOTE | 2016-09-13 07:35 | NUR ---
PATIENT RESTING QUIETLY RECEIVING HER BREATHING TREATMENT. NO EVIDENCE OF DISTRESS. SHE MAKES GOOD EYE CONTACT AND SHAKES HER HEAD WHEN ASKED IF SHE HAS NEEDS.
--- NOTE | 2016-09-13 08:12 | NUR ---
PATIENT HAS COMPLETED HER BREATHING TREATMENT AND IS INTERACTIVE. RT, SHE AND I DISCUSSED HER INDICATORS FOR NEEDING THE BIPAP. SHE STATES THAT SHE UNDERSTANDS HER FEELING THAT INDICATE SHE NEEDS THE BIPAP. SHE WORE IT FOR MOST OF THE NIGHT PER HER STATEMENT.
[2016-09-13 08:31] VITALS: BP 102/62
--- NOTE | 2016-09-13 10:18 | NUR ---
PATIENT GIVEN NORCO FOR C/O BACK PAIN RATED A 6. AJAY REQUESTED. SHE STATES THAT IF SHE DOESN'T TAKE IT SHE SHAKES TOO BAD. SHE STATE SHTAT SHE DOES TAKE THIS ROUTINELY AT HOME.
--- NOTE | 2016-09-13 10:50 | NUR ---
Rehab Note- OT Eval completed. [facility]. Will continue to follow. Cori Gonzalez RN Clinical Liaison, [facility]/[place]
--- NOTE | 2016-09-13 11:27 | NUR ---
PATIENT RESTING QUIETLY, EYES CLOSED INTERMITTENTLY SNORING. WITH HOG UP 30 DEGREES. AWOKE EASILY TO MY VOICE. STATES THAT HER PAIN IS BETTER, O2 INFUSING AT 3.5LPM
[2016-09-13 11:42] VITALS: BP 91/48
--- NOTE | 2016-09-13 13:08 | NUR ---
Nutrition follow-up: Diet: No added salt PO intake ~70% average of meals Labs reviewed +BM Wt: 206# Waiting for rehab placement RDN following.
--- NOTE | 2016-09-13 13:14 | NUR ---
Patient Name: AMBER MILLER Encounter No: [id number] : 1960 Primary Insurance: [employer] CHOICE PPO MCR ADVANT Anticipated DC Date: Planned Disposition: Home DCP follow-up note: CM RECEIVED CALL FROM TARA OF [facility], , WHO ADVISED THAT PT HAS BEEN APPROVED FOR TRILOGY AT HOME AND THEY ARE UNABLE TO DELIVER TO PT IN INPATIENT REHAB OR JAIL FACILITY. [facility] TO ARRANGE HOME DELIVERY OF TRILOGY MACHINE WHEN DISCHARGE DATE IS KNOWN. CM TO CONTINUE TO FOLLOW AND ASSIST WITH DISCHARGE NEEDS AND AWAITS PT'S DECISION REGARDING HOME HEALTH IF SHE DISCHARGES HOME. CM WAITING INSURANCE AUTHORIZATION REGARDING INPATIENT REHAB SERVICES. Alireza Recio, CASE MANAGEMENT
--- NOTE | 2016-09-13 14:44 | NUR ---
PATIENT HAS BEEN AFEBRILE ALL SHIFT. SHE IS CURRENTLY RESTING QUIELTY WITH EYES CLOSED. WEARING THE BIPAP.
[2016-09-13 15:51] VITALS: BP 95/56
[2016-09-13 19:00] VITALS: BP 105/55
--- NOTE | 2016-09-13 19:03 | NUR ---
LAYING IN BED, AAOX3, SKIN WARM AND DRY, RESP SHALLOW, IV PATENT TO RIGHT FOREARM, BIPAP IN USE, NO DISTRESS NOTED
[2016-09-14] VITALS: BP 103/57
--- NOTE | 2016-09-14 01:56 | NUR ---
PT SLEEPING. BREATHING UNLABORED, NO S&S OF DISTRESS NOTED. TELEMETRY SHOWING NSR AT 77 BPM. BED LOW AND LOCKED, CALL LIGHT IN REACH. WILL CONTINUE TO MONITOR.
--- NOTE | 2016-09-14 01:58 | NUR ---
PT USING BIPAP AT THIS TIME. WILL CONTINUE TO MONITOR.
[2016-09-14 04:00] VITALS: BP 98/52
[2016-09-14 08:21] VITALS: BP 107/64
[2016-09-14 12:05] VITALS: BP 111/65
[2016-09-14] MEDS ORDERED: MUCINEX DM ER1 EAC1 PO (12:56)
[2016-09-14] MEDS ORDERED: TESSALON PERLE100 MG PO (12:56)
[2016-09-14] MEDS ORDERED: PREDNISONE10 MG PO (14:11)
--- NOTE | 2016-09-14 15:02 | NUR ---
Patient Name: AMBER MILLER Encounter No: [id number] : 1960 Primary Insurance: [employer] CHOICE PPO MCR ADVANT Anticipated DC Date: Planned Disposition: Home WITH HOME HEALTH External Planned Provider: [facility] DCP follow-up note: CM RECEIVED CALL FROM TARA OF [facility] WHO REPORTED THAT ORDER HAS BEEN PROCESSED, AND [facility] TO DELIVER MACHINE TO PT'S HOME AT DISCHARGE. TARA WILL CHECK WITH PT REGARDING ANY COPAYS TO SEE IF THERE IS FINANCIAL ASSISTANCE AVAILABLE TO HELP PT WITH ANY EXPENSES NOT COVERED BY INSURANCE IN RELATION TO THE TRILOGY MACHINE. CM RECEIVED DISCHARGE AND HOME HEALTH ORDER, MET WITH PT IN ROOM AND DISCUSSED AVAILABILITY OF HOME HEALTH AND REHAB SERVICES. PT DENIES NEED FOR REHAB SERVICES, FEELS IT IS A WASTE OF MONEY WHEN SHE CAN GET THERAPY AT HOME AND WILL HAVE BOTH OF HER DAUGHTERS THERE TO ASSIST WITH HER CARE. PT WOULD LIKE HOME [facility] FOR THERAPY AND NURSING, CHOSE [facility] THEY ACCEPT HER INSURANCE AND ARE FAMILIAR WITH THE TRILOGY MACHINE. CHOICE SIGNED. IMPORTANT MESSAGE FROM [employer] PROVIDED AND EXPLAINED. PT REPORTS HER DAUGHTER WILL PICK HER UP, CM ASSISTED PT WITH CALLING HER DAUGHTER, SANTOS, ; SANTOS VERIFIED DISCHARGE ADDRESS FOR TRILOGY DELIVERY [address], [id number], SHE WILL WAIT FOR CALL FROM [facility] AND BE AVAILABLE TO ACCEPT MACHINE TODAY; PT'S OTHER EZEKIELUGHER, RITA, , WILL GO CART MECHANIC PT THIS AFTERNOON FOR TRANSPORT HOME. WILFRED CALLED [facility], , LEFT MESSAGE FOR TARA AND WAS ASSURED THAT TRILOGY MACHINE WOULD BE DELVERED TO PT'S HOME THIS AFTERNOON, [facility] TO COORDINATE HOME DELIVERY WITH PT'S DAUGHTER. CM CALLED [facility], , SPOKE TO RONNA WHO TOOK HOME HEALTH REFERRAL FOR FOLLOW UP TOMORROW. CM FAXED REFERRAL AND DISCHARGE INFORMATION TO [facility] AT [phone]. PT NOTIFIED WHO DENIED FURHTER DISCHARGE NEEDS. Alireza Recio, CASE MANAGEMENT
--- NOTE | 2016-09-14 17:21 | NUR ---
ALERT AND ORIENTED X4. DC RT FA IV TIP INTACT. DISCHARGE INSTRUCTIONS GIVEN VERBALLY AND WRITTEN. DISCHARGE PAPERS SIGNED ON CHART. FAMILY ARRIVES FOR LOW PRESSURE BOILER OPERATOR. PORTABLE O2 TANK IN HAND. ATTACH O2 TUBING TO PORTABLE OXYGEN. ESCORT TO RIDE VIA WHEELCHAIR. REMAINS FREE FROM INJURY.
--- NOTE | 2016-10-27 15:43 | DS ---
PATIENT:AMBER MILLER :56 MEDICAL RECORD: [id number] DISCHARGE SUMMARY ADMISSION DATE: 09/05/16 DISCHARGE DATE: 09/14/16 DATE OF ADMISSION: 09/05/2016 DATE OF DISCHARGE: 09/14/2016 DISCHARGE DIAGNOSES: 1. Pneumonia. 2. Chronic obstructive pulmonary disease. 3. Vtbrs-vt-fdssmyy hypoxic and hypercapnic respiratory failure. 4. Serratia marcescens, community-acquired pneumonia. 5. Hypomagnesemia. 6. Hypokalemia. 7. Coronary artery disease. 8. History of transient ischemic attack, history of bipolar, anxiety. 9. Hypothyroidism. 10. Thrombocytopenia. CONSULTS: 1. I did consult Dr. Julian for the thrombocytopenia. 2. Kodak Gordon MD. DIAGNOSTIC TEST: Chest x-ray, bilateral interstitial changes. HOSPITAL COURSE: The full H&P is listed elsewhere in the chart for this 56-year-old female patient who was admitted with pneumonia and COPD exacerbation. She was placed in the intensive care unit on BiPAP. With aggressive pulmonary toilet and steroids, and antibiotic therapy included vancomycin and Maxipime. She was also on Diamox. Dr. Julian was consulted due to her thrombocytopenia. Her peripheral smear was nondiagnostic. Heparin was avoided during her hospitalization. SCDs were used for DVT prophylaxis. Her condition improved. Her antibiotic therapy was deescalated and her steroids were tapered. She was thought to be stable for discharge to home with home health. See med rec. TRANSINT:[id number] Voice Confirmation ID: [id number] DOCUMENT ID: [id number] Dictated By: KALE ANDERSON I have interviewed/examined the above patient and agree with these documented findings. FLOWER CHUA MD at 1515 at 1543 CC: [id number] DICTATION DATE: 10/26/16 0853 FIXED WING AIRCRAFT FLIGHT MECHANIC: 10/27/16 0025 DIS IN 09/14/16 [facility] [address] [place] [address]
== END 2016-09-14 17:23 | disposition home health service (06) | DRG 189 ==
LOC: D.M2 13:51 → D.SDCHOLD 15:41 → D.M2 09-14 17:23
PROVIDERS: Internal Medicine Hematology & Oncology; Internal Medicine Pulmonary Disease; ADMIT Family Medicine
PROC: 5A09557 Assistance with Respiratory Ventilation, Greater than 96 Consecutive Hours, Continuous Positive Airway Pressure (ICD-10-PCS; principal; 2016-09-05)
DX: J96.21 Acute and chronic respiratory failure with hypoxia (principal); J18.9 Pneumonia, unspecified organism; J44.1 Chronic obstructive pulmonary disease with (acute) exacerbation; D61.818 Other pancytopenia; E87.0 Hyperosmolality and hypernatremia; J44.0 Chronic obstructive pulmonary disease with (acute) lower respiratory infection; I25.10 Atherosclerotic heart disease of native coronary artery without angina pectoris; K21.9 Gastro-esophageal reflux disease without esophagitis; E87.6 Hypokalemia; E03.9 Hypothyroidism, unspecified; F31.9 Bipolar disorder, unspecified; F41.9 Anxiety disorder, unspecified; J30.9 Allergic rhinitis, unspecified; G47.33 Obstructive sleep apnea (adult) (pediatric); Z86.73 Personal history of transient ischemic attack (TIA), and cerebral infarction without residual deficits

== ENCOUNTER 2016-09-26 13:17 | Emergency (ER) | payer MEDICARE ==
[2016-09-06 13:31] VITALS: BMI 33.8
[~2016-09-26 13:17] MED LIST changes: +TESSALON PERLE100 MG PO
[2016-09-26 14:17] LABS: BASOPHILS 0.3 % (0.0-2.0); EOSINOPHILS 1.6 % (0-7); HEMATOCRIT 37.7 % (36.0-48.0); HEMOGLOBIN 11.9 g/dL (12-16); IMMATURE GRANULOCYTES 0.7 % (0-5); LYMPHOCYTES 29.5 % (15-50); MCH 29.8 pg (26.0-34.0); MCHC 31.6 g/dL (31.0-37.0); MCV 94.3 fL (80.0-100.0); MEAN PLATELET VOLUME 9.4 fL (7.4-10.4); MONOCYTES 4.2 % (2-11); NEUTROPHILS 63.7 % (40-80); PLATELET COUNT 134 10x3/uL (130-400); RDW 14.4 % (11.5-14.5); WBC 6.7 10x3/uL (4.8-10.8)
[2016-09-26 14:38] LABS: ALKALINE PHOSPHATASE 57 U/L (46-116); ALT (SGPT) 23 U/L (10-68); CALC OSMOLALITY 285 mosm/kg (275-300); CALCIUM 8.8 mg/dL (8.5-10.1); CHLORIDE - SERUM 100 mmol/L (98-107); CREATININE - SERUM 0.6 mg/dL (0.6-1.3); GLUCOSE 129 mg/dL (74-106); POTASSIUM - SERUM 3.3 mmol/L (3.5-5.1); PROTEIN - SERUM 6.3 g/dL (6.4-8.2); SODIUM 143 mmol/L (136-145); UREA NITROGEN 9 mg/dL (7-18); eGFR NON AFRICAN AMERICAN > 90 mL/min (90-120)
[2016-09-26 16:39] LABS: MAGNESIUM - SERUM 1.4 mg/dL (1.8-2.4); TROPONIN-I 0.035 ng/mL (0.000-0.060)
--- NOTE | 2016-09-29 13:59 | CN ---
PATIENT NAME:AMBER LANGSTON MEDICAL RECORD: [id number] : [birth year] LOCATION:.ER ADMIT DATE: ACCOUNT: [id number] CONSULTING PHYSICIAN: ALISSA ONOFRE MD REFERRING PHYSICIAN: LUIS YEUNG MD DATE OF CONSULTATION: 09/26/2016 DIAGNOSES: 1. Shortness of breath. 2. Palpitations. 3. Atrial fibrillation with rapid ventricular response. 4. Hyperlipidemia. 5. Coronary artery disease. 6. Chronic obstructive pulmonary disease. HISTORY OF PRESENT ILLNESS: Mrs. Langston is well known to us with a past history of atrial fibrillation. She is on propafenone for the atrial fibrillation at 150 mg b.i.d. She presents with palpitations. She has been having increasing palpitations, no chest pain, chest discomfort with the palpitations. She gets more short of breath. She has COPD and she has a baseline shortness of breath, but palpitations make it much worse. This is just like the symptomatology she has had in the past since she has had atrial fibrillation with rapid response. She had a rapid atrial fibrillation. She was given sotalol 120 mg times 1. She is converted to sinus rhythm. PHYSICAL EXAMINATION GENERAL APPEARANCE: Well-nourished, well-developed, appears stated age. Level of distress, comfortable. PSYCHIATRIC: Mental status, alert, normal affect. Orientation, oriented to time, place and person. EYES: Lids and conjunctiva, noninjected. No discharge, no pallor. ENT: Lips, teeth, gums, normal dentition. Oropharynx, no cyanosis, no pallor. NECK: Carotid arteries, bilateral normal upstroke, no bruits, no thrills. JUGULAR VEINS: No jugular venous pressure or distention. CERVICAL LYMPH NODES: Nontender, nonenlarged. THYROID: Not enlarged. Nontender. No nodules. LUNGS: Respiratory effort, unlabored. CHEST: Normal curvature. No thoracic deformity. No chest wall tenderness. Percussion, resonant. Auscultation, clear. No wheezes, no rales, no rhonchi. CARDIOVASCULAR: Precordial exam, nondisplaced. No heaves or pericardial thrills. Rate and rhythm, regular. Heart sounds, normal S1, normal S2. No S3, no gallop, no rub. Systolic murmur, not heard. Diastolic murmur, not heard. EXTREMITIES: No cyanosis, no edema. Peripheral pulses, full and equal in all extremities, except as noted. No bruits appreciated. ABDOMEN: Soft, nondistended. Normal aorta. No bruit. Nontender. No masses. Liver, nontender, no hepatomegaly. Spleen, nontender, no splenomegaly. MUSCULOSKELETAL: No joint tenderness. No joint swelling. No erythema. NEUROLOGICAL: Normal gait, normal strength, normal tone. SKIN: Warm and dry. REVIEW OF SYSTEMS: The patient reports easy bruising but reports no swollen glands. The patient reports no fever, no night sweats, no significant weight gain, no significant weight loss. No significant exercise tolerance. The patient reports no dry eyes, no irritation, no vision change. Patient reports no difficulty hearing and no ear pain. Patient reports no frequent nose bleeds CONSULT REPORT [id number] AMBER LANGSTON or nose and sinus problems. Patient reports on arm pain on exertion. No shortness of breath while lying down. No history of heart murmur. Patient reports no cough, no wheezing or coughing up blood. Patient reports no abdominal pain, no vomiting. Normal appetite. No diarrhea and not vomiting blood. No nausea and no constipation. Patient reports no incontinence. No difficulty urinating. No hematuria. No increased frequency. Patient reports no muscle aches. No weakness, no arthralgias, no back pain. No swelling of the extremities. Patient reports no abnormal mole, no jaundice, no rashes. Reports no loss of consciousness. No weakness and no numbness. No seizures, dizziness, or headaches. The patient reports no depression, no sleep disturbance, feeling safe in a relationship and no alcohol abuse. Patient reports on fatigue. Reports no runny nose or sinus pressure. No itching, no hives, and no frequent sneezing. OVERALL IMPRESSION: Recurrent atrial fibrillation. At this time, we will discontinue the propafenone. We will keep her on sotalol 120 mg b.i.d. We will see her back in the office in a few days to make sure she maintained sinus rhythm. TRANSINT:[id number] Voice Confirmation ID: [id number] DOCUMENT ID: [id number] ALISSA ONOFRE MD at 1359 CC: [id number] DICTATION DATE: 09/26/16 170 INSURANCE INSPECTOR: 09/26/16 501 DEP ER 09/26/16 1909 [place] [address]
== END 2016-09-26 17:55 | disposition home or self-care (01) ==
LOC: OBSVTIME → D.ER 13:17 → D.M2 16:43 → OBSVTIME 16:44 → D.ER 17:55
PROVIDERS: Emergency Medicine
DX: R00.2 Palpitations (principal); R00.0 Tachycardia, unspecified; J44.9 Chronic obstructive pulmonary disease, unspecified

== ENCOUNTER 2017-03-18 20:34 | Inpatient (IN) | payer MEDICARE, MEDICAID ==
[~2017-03-18] VITALS: Ht 165.1 cm; Wt 100.7 kg
--- NOTE | ~2017-03-18 | CN ---
PATIENT NAME:AMBER MILLER MEDICAL RECORD: [id number] : 56 LOCATION:D.MS [facility]2224 ADMIT DATE: 03/18/17 ACCOUNT: [id number] CONSULTING PHYSICIAN: ALISSA ONOFRE MD REFERRING PHYSICIAN: SHANI MONTERROSO DO DATE OF CONSULTATION: 03/25/2017 Cardiology Consultation DIAGNOSES: 1. Shortness of breath. 2. Chronic obstructive pulmonary disease exacerbation. 3. Coronary artery disease. 4. Previous PTCA stent. 5. Chest pain. 6. Pulmonaryhypertension. 7. Hyperlipidemia. 8. Paroxysmal atrial fibrillation. HISTORY OF PRESENT ILLNESS: Mrs. Miller presents with shortness of breath, felt to be secondary to COPD exacerbation. She was having chest pain and she also has hemoptysis. Chest pain was related to coughing. She does have a history of coronary artery disease and previous PTCA and stent, but her chest pain is not like that of her previous angina. Her EKG is normal. Her troponin is normal. Her echocardiogram was performed, she has a normal ejection fraction of 55%, pulmonary hypertension with pulmonary systolic in the 64 range. No significant valvular disease other than the tricuspid regurgitation related to the pulmonary hypertension. PHYSICAL EXAMINATION: GENERAL APPEARANCE: Well-nourished, well-developed, appears stated age. Level of distress, comfortable. PSYCHIATRIC: Mental status, alert, normal affect. Orientation, oriented to time, place and person. EYES: Lids and conjunctiva, noninjected. No discharge, no pallor. ENT: Lips, teeth, gums, normal dentition. Oropharynx, no cyanosis, no pallor. NECK: Carotid arteries, bilateral normal upstroke, no bruits, no thrills. JUGULAR VEINS: No jugular venous pressure or distention. CERVICAL LYMPH NODES: Nontender, nonenlarged. THYROID: Not enlarged. Nontender. No nodules. LUNGS: Respiratory effort, unlabored. CHEST: Normal curvature. No thoracic deformity. No chest wall tenderness. Percussion, resonant. Auscultation, clear. No wheezes, no rales, no rhonchi. CARDIOVASCULAR: Heart rate is irregularly irregular in atrial fibrillation with rapid ventricular response in the 130s. EXTREMITIES: No cyanosis, no edema. Peripheral pulses, full and equal in all extremities, except as noted. No bruits appreciated. ABDOMEN: Soft, nondistended. Normal aorta. No bruit. Nontender. No masses. Liver, nontender, no hepatomegaly. Spleen, nontender, no splenomegaly. MUSCULOSKELETAL: No joint tenderness. No joint swelling. No erythema. NEUROLOGICAL: Normal gait, normal strength, normal tone. SKIN: Warm and dry. OVERALL IMPRESSION: Chest pain is noncardiac in etiology, it is secondary to pulmonary as is the shortness of breath. No other cardiac workup or treatment CONSULT REPORT [id number] AMBER MILLER is necessary. TRANSINT:[id number] Voice Confirmation ID: [id number] DOCUMENT ID: [id number] ALISSA ONOFRE MD CC: [id number] DICTATION DATE: 03/25/17913 ASSURANCE SENIOR MANAGER INSURANCE: 03/25/17 1008 ADM IN [facility] [address] [id number]
[2017-03-18 21:43] LABS: BASOPHILS 0.7 % (0-2); EOSINOPHILS 2.6 % (0-7); HEMATOCRIT 39.3 % (36.0-48.0); HEMOGLOBIN 12.2 g/dL (12-16); IMMATURE GRANULOCYTES 2.3 % (0-5); LYMPHOCYTES 30.5 % (15-50); MCH 29.8 pg (26.0-34.0); MCV 96.1 fL (80.0-100.0); MEAN PLATELET VOLUME 9.9 fL (7.4-10.4); MONOCYTES 8.1 % (2-11); NEUTROPHILS 55.8 % (40-80); PLATELET COUNT 102 10x3/uL (130-400); RBC 4.09 10x6/uL (4.00-5.40)
[2017-03-18 22:07] LABS: ALBUMIN 3.2 g/dL (3.4-5.0); ALKALINE PHOSPHATASE 71 U/L (46-116); ALT (SGPT) 33 U/L (10-68); BILIRUBIN - TOTAL 0.32 mg/dL (0.2-1.3); CALC OSMOLALITY 283 mosm/kg (275-300); CALCIUM 8.7 mg/dL (8.5-10.1); CHLORIDE - SERUM 101 mmol/L (98-107); CREATINE KINASE 81 UL (21-215); CREATININE - SERUM 0.7 mg/dL (0.6-1.3); GLUCOSE 166 mg/dL (74-106); POTASSIUM - SERUM 4.2 mmol/L (3.5-5.1); PRO BNP 861 pg/mL (0-125); SODIUM 141 mmol/L (136-145); UREA NITROGEN 9 mg/dL (7-18); eGFR NON AFRICAN AMERICAN > 90 mL/min (90-120)
[2017-03-18 22:08] LABS: CARBON DIOXIDE 44.4 mmol/L (21.0-32.0); TROPONIN-I < 0.017 ng/mL (0.000-0.060)
--- NOTE | 2017-03-18 23:45 | NUR ---
RECEIVED TO FLOOR FROM ER, 7L OXIMIZER SATS 91%, ORIENTED TO ROOM, CALL LIGHT IN REACH, CONITNUOUS PULSE-OX PLACED ON, BED LOWEST POSITION, WILL CONTINUE TO MONITOR
[2017-03-19 01:19] VITALS: BP 145/80; BMI 41.4
--- NOTE | 2017-03-19 01:50 | NUR ---
RESTING WITH EYES CLOSED. AWAKENS EASILY. RR 18 EVEN U/L WITH OXIMIZER AT 11L. 02 SAT'S AT 94%. EXPIRATORY WHEEZES AND CRACKLES AUSCULTATED IN UPPER LOBES. TELEMETRY SHOWS [address] ON MONITOR. LOWER LEGS ARE SWOLLEN WITH 3+ EDEMA. DENIES ANY NEEDS.
[2017-03-19 04:00] VITALS: BP 158/50
[2017-03-19 06:05] LABS: BASOPHILS 0.2 % (0-2); EOSINOPHILS 0 % (0-7); HEMATOCRIT 39.9 % (36.0-48.0); HEMOGLOBIN 12.1 g/dL (12-16); LYMPHOCYTES 9.6 % (15-50); MCH 29.9 pg (26.0-34.0); MCHC 30.3 g/dL (31.0-37.0); MEAN PLATELET VOLUME 9.8 fL (7.4-10.4); NEUTROPHILS 88.2 % (40-80); PLATELET COUNT 103 10x3/uL (130-400); RBC 4.05 10x6/uL (4.00-5.40); WBC 5.1 10x3/uL (4.8-10.8)
[2017-03-19 06:28] LABS: MCV 98.5 fL (80.0-100.0)
[2017-03-19 06:48] LABS: CALC OSMOLALITY 295 mosm/kg (275-300); CALCIUM 8.6 mg/dL (8.5-10.1); CHLORIDE - SERUM 99 mmol/L (98-107); CREATININE - SERUM 0.8 mg/dL (0.6-1.3); GLUCOSE 205 mg/dL (74-106); POTASSIUM - SERUM 4.6 mmol/L (3.5-5.1); SODIUM 146 mmol/L (136-145); UREA NITROGEN 9 mg/dL (7-18); eGFR NON AFRICAN AMERICAN 78 mL/min (90-120)
[2017-03-19 06:52] LABS: CARBON DIOXIDE 48.6 mmol/L (21.0-32.0)
--- NOTE | 2017-03-19 07:15 | NUR ---
REPORT RECEIVED FROM BIT SHAVER NURSE. CALL LIGHT IN REACH.
--- NOTE | 2017-03-19 07:41 | NUR ---
PATIENT IN BED WITH NO COMPLAINTS AT THIS TIME. IV INTACT. CALL LIGHT WITHIN REACH.
--- NOTE | 2017-03-19 08:42 | NUR ---
ASSESSMENT COMPLETED. AM MEDS ADMINISTERED. I HAVE WEANED OXYMIZER FROM 11L TO 9L. REQUESTING PAIN PILL FOR CHRONIC BACK PAIN. WILL CALL MD. CALL LIGHT IN REACH. WILL CONTINUE WITH PLAN OF CARE.
[2017-03-19 08:43] VITALS: BP 110/62
--- NOTE | 2017-03-19 09:33 | NUR ---
ASSISTED TO THE BR AND BACK TO BED. REPOSITIONED IN BED. BENNIE WHITING
--- NOTE | 2017-03-19 11:20 | NUR ---
DR. MONTERROSO TO SEE PATIENT.
--- NOTE | 2017-03-19 13:00 | NUR ---
O2 INCREASED BACK TO 11L PER OXYMIZER.
[2017-03-19 14:08] VITALS: BP 108/59
--- NOTE | 2017-03-19 15:28 | NUR ---
BENNIE PO WITH AFTERNOON MEDS. CALL LIGHT IN REACH.
--- NOTE | 2017-03-19 16:40 | NUR ---
RESTING WITH EYES CLOSED. RESP EVEN AND UNLABORED. CALL LIGHT IN REACH.
--- NOTE | 2017-03-19 18:58 | NUR ---
NO CHANGES IN INITIAL ASSESSMENT. CALL LIGHT IN REACH. SCDs TO BLE. BED ALARM ON. WILL CONTINUE WITH PLAN OF CARE.
[2017-03-19 19:00] VITALS: BP 116/49
--- NOTE | 2017-03-19 23:52 | NUR ---
INITIAL ROUNDS COMPELTED AT 1920 HRS. PT RESTING WITH EYES CLOSED. RESP EVEN AND REGULAR. ASSESSMENT COMPETED AT 2015 HRW. VSS. SR PER CM HR 98. 02 10L OXIMIXER WITH CONTINUOUS PULSE OX. IV TO R HAND SL. LUNGS DIMINISHED IN BASES BILAT. PT LETHARGIC, OPENS EYES TO VERBAL STIMULI AND ANSWERS QUESTIONS. FOLLOWS COMMAND THEN QUICKLY FALLS BACK TO SLEEP. SCD'S IN USE. SCD'S REMOVED AND SKIN INSPECTED. NO BREAKDOWN NOTED. PM MEDS GIVEN. PT STATED SHE WOKE UP AND DIDN'T KNOW WHERE SHE WS. REORIENTED TO PLACE, TIME AND SITUATION. PT CURRENTLY DRINKING A SODA. NO DISTRESS NOTED. SR UP X3, CALL LIGHT WITHIN REACH AND BED ALARM ON.
[2017-03-20] VITALS: BP 116/52
--- NOTE | 2017-03-20 00:50 | NUR ---
O2 SAT 89-90. PT ENCOURAGED TO DEEP BREATHE. REPOSITIONED IN BED BUT NO INCREASE TO O2 SAT. O2 TO 12L OXIMIZER PER RT. WILL CONTINUE TO MONITOR.
--- NOTE | 2017-03-20 01:19 | NUR ---
O2 SAT 92% ON 12L OXIMIZER. PT DENIES ANY DISCOMFORT. WILL CONTINUE TO MONITOR.
--- NOTE | 2017-03-20 02:42 | NUR ---
PT RESTNG WITH EYES CLOSED. RESP EVEN AND REGULAR. O2 SAT 96% ON 12L OXIMIZER. WILL CONTINUE TO MONITOR. SR UP X2, CALL LIGHT WITHIN REACH.
[2017-03-20 04:00] VITALS: BP 105/45
--- NOTE | 2017-03-20 05:15 | NUR ---
PT RESTING WITH EYES CLOSED. RESP EVEN AND REGULAR. SR UP X3, CALL LIGHT WITHIN REACH AND BED ALARM ON.
[2017-03-20 06:36] LABS: CALC OSMOLALITY 293 mosm/kg (275-300); CALCIUM 8.4 mg/dL (8.5-10.1); CHLORIDE - SERUM 95 mmol/L (98-107); CREATININE - SERUM 0.7 mg/dL (0.6-1.3); GLUCOSE 206 mg/dL (74-106); POTASSIUM - SERUM 4.6 mmol/L (3.5-5.1); SODIUM 144 mmol/L (136-145); UREA NITROGEN 14 mg/dL (7-18); eGFR NON AFRICAN AMERICAN > 90 mL/min (90-120)
[2017-03-20 06:37] LABS: CARBON DIOXIDE 52.6 mmol/L (21.0-32.0)
--- NOTE | 2017-03-20 06:50 | NUR ---
VSS THROUGHOUT NIGHT. O2 SA TO MID 90'S ON 12L OXIMIZER. PT MORE RELAXED AFTER NORCO GIVEN. NEEDS MET;WILL CONTINUE TO MONITOR.
--- NOTE | 2017-03-20 06:52 | NUR ---
DR MONTERROSO NOTIFIED OF ELEVATED CO2 OF 52.6. NO NEW ORDERS.
[2017-03-20 08:24] VITALS: BP 112/55
[2017-03-20 10:02] LABS: BASOPHILS 0 % (0-2); EOSINOPHILS 0 % (0-7); HEMATOCRIT 36.5 % (36.0-48.0); IMMATURE GRANULOCYTES 0.5 % (0-5); LYMPHOCYTES 11.6 % (15-50); MCHC 30.1 g/dL (31.0-37.0); MCV 99.5 fL (80.0-100.0); MEAN PLATELET VOLUME 9.8 fL (7.4-10.4); MONOCYTES 3.4 % (2-11); NEUTROPHILS 84.5 % (40-80); PLATELET COUNT 121 10x3/uL (130-400); RBC 3.67 10x6/uL (4.00-5.40); RDW 13.7 % (11.5-14.5)
[2017-03-20 10:04] LABS: WBC 7.4 10x3/uL (4.8-10.8)
[2017-03-20 10:18] LABS: CALCIUM 8.4 mg/dL (8.5-10.1); CHLORIDE - SERUM 96 mmol/L (98-107); POTASSIUM - SERUM 4.7 mmol/L (3.5-5.1); UREA NITROGEN 14 mg/dL (7-18)
--- NOTE | 2017-03-20 10:24 | NUR ---
SCHEDULED MEDICATIONS ADMINISTERED AT THIS TIME. PRN NORCO ADMINISTERED AT THIS TIME. IV TO RIGHT HAND PATENT. PT ON 5L OXYMIZER. ASSESSMENT PERFORMED PER FLOWSHEET. BED ALARM ON. CALL LIGHT IN REACH, WILL CONTINUE WITH PLAN OF CARE.
[2017-03-20 10:44] LABS: ALKALINE PHOSPHATASE 54 U/L (46-116); ALT (SGPT) 25 U/L (10-68); CALC OSMOLALITY 295 mosm/kg (275-300); CREATININE - SERUM 0.8 mg/dL (0.6-1.3); GLUCOSE 208 mg/dL (74-106); PRO BNP 428 pg/mL (0-125); PROTEIN - SERUM 6.9 g/dL (6.4-8.2); SODIUM 145 mmol/L (136-145); eGFR NON AFRICAN AMERICAN 78 mL/min (90-120)
[2017-03-20 10:48] LABS: CARBON DIOXIDE 49.9 mmol/L (21.0-32.0)
[2017-03-20 12:24] VITALS: BP 110/64
--- NOTE | 2017-03-20 15:10 | NUR ---
BED BATH PERFORMED AT THIS TIME.
[2017-03-20 16:13] VITALS: BP 114/66
[2017-03-20 19:00] VITALS: BP 123/51
--- NOTE | 2017-03-20 23:29 | NUR ---
ASSISTED PATIENT OFF OF THE BEDPAN. OXYGEN SATURATION DESATED FROM 93% TO 78% WHILE GETTING HER OFF OF THE BEDPAN AND HER TURNING WHILE I CLEANED HER BUTTOM. WITH ASSIST FROM THE GEOSCIENCES PROFESSOR PULLED PATIENT UP IN BED, SAT HOB ALL THE WAY UP. OXYGEN SATURATION CAME UP TO 92% AFTER A FEW MINUTES.
[2017-03-21] VITALS: BP 109/64
[2017-03-21 04:00] VITALS: BP 125/65
--- NOTE | 2017-03-21 04:26 | NUR ---
RESTING QUIETLY WITH EYES CLOSED.
[2017-03-21 05:01] LABS: BASOPHILS 0 % (0-2); EOSINOPHILS 0 % (0-7); HEMATOCRIT 39.5 % (36.0-48.0); HEMOGLOBIN 12.1 g/dL (12-16); IMMATURE GRANULOCYTES 0.7 % (0-5); LYMPHOCYTES 11.5 % (15-50); MCH 29.6 pg (26.0-34.0); MCHC 30.6 g/dL (31.0-37.0); MEAN PLATELET VOLUME 9.9 fL (7.4-10.4); MONOCYTES 3.8 % (2-11); PLATELET COUNT 136 10x3/uL (130-400); RBC 4.09 10x6/uL (4.00-5.40); RDW 13.6 % (11.5-14.5); WBC 7.4 10x3/uL (4.8-10.8)
[2017-03-21 05:05] LABS: MCV 96.6 fL (80.0-100.0)
[2017-03-21 05:22] LABS: ALBUMIN 3.3 g/dL (3.4-5.0); BILIRUBIN - TOTAL 0.39 mg/dL (0.2-1.3); CALCIUM 8.7 mg/dL (8.5-10.1); POTASSIUM - SERUM 4.7 mmol/L (3.5-5.1); PROTEIN - SERUM 7.7 g/dL (6.4-8.2)
[2017-03-21 05:25] LABS: ANION GAP 2.5 mmol/L (8-16); CARBON DIOXIDE 50.2 mmol/L (21.0-32.0)
--- NOTE | 2017-03-21 07:40 | NUR ---
Patient Name: AMBER MILLER Admission Status: ER Accout number: [id number] Admission Date: 03-18-2017 : 1960 Admission Diagnosis: Attending: LANCE Current LOS: 3 Anticipated DC Date: 03-24-2017 Planned Disposition: Home Primary Insurance: [employer] CHOICE PPO MCR ADVANT Discharge Planning Comments: CM MET WITH PATIENT REGARDING D/C NEEDS AND PLANS. PATIENT STATED SHE LIVES WITH HER DAUGHTER (RITA) AND SHE WILL DRIVE HER HOME AT DISCHARGE. PATIENT STATED SHE HAS 3 STEPS W/RAILS TO ENTER HOME AND NO STAIRS INSIDE. PATIENT STATED SHE HAS HELP FROM HER DAUGHTER WITH BATHING AND DRESSING. PATIENT HAS A WALKER, SHOWER CHAIR, AND OXYGEN AT HOME. STATED SHE USES 2.5L WHILE RESTING AND 4 L WHEN UP AND ABOUT. PATIENTS OXYGEN IS SUPPLIED BY [facility]. PATIENT DOES NOT WANT HOME HEALTH AT THIS TIME. PATIENT STATED HER DAUGHTER IS THERE TO HELP AND SHE HAS [facility] COME OUT ABOUT EVERY 2 WEEKS CHECKING ON HER. CM WILL CONTINUE TO FOLLOW PATIENT WITH D/C NEEDS AND PLANS. PCP DR[facility] [address]- [phone] RITA (DAUGHTER) [phone] Manual Machinist: Nori Castro Is the patient Alert and Oriented? Yes 0 * How many steps to enter\exit or inside your home? 3 W/RAILS 0 * PCP DR. DEL REAL 0 * Pharmacy [facility] [address] 0 * Preadmission Environment Home with Family 0 * ADLs Partial Dependent 0 * Partial ADLs (Assistance needed) Bathing Dressing Medication Management 0 * Equipment Oxygen Shower Chair Walker 0 * List name and contact numbers for known caregivers / representatives who currently or will assist patient after discharge: RITA (DAUGHTER) [phone] 0 * Additional services required to return to the preadmission environment? Yes 0 * Can the patient safely return to the preadmission environment? Yes 0 * Has this patient been hospitalized within the prior 30 days at any hospital? No 0 Grand Total: 0
[2017-03-21 08:22] VITALS: BP 122/78
--- NOTE | 2017-03-21 08:23 | NUR ---
SCHEDULED MEDICATIONS ADMINISTERED AT THIS TIME. EATING BREAKFAST AT THIS TIME. BED ALARM AND SCD'S ON. OXYGEN ON 7L VIA OXYMIZER. DENIES NEEDS AT PRESENT TIME. CALL LIGHT IN REACH, WILL CONTINUE WITH PLAN OF CARE.
[2017-03-21 10:19] VITALS: Ht 165.1 cm; Wt 100.7 kg
[2017-03-21 12:02] VITALS: BP 141/67
[2017-03-21 16:26] VITALS: BP 147/66
--- NOTE | 2017-03-21 18:06 | NUR ---
IV TO RIGHT HAND D/C WITH CATH TIP INTACT BY PT ON ACCIDENT. ATTEMPTED 22G IV X2 TO LEFT HAND, BUT WAS UNSUCCESSFUL CATHETER WOULD NOT THREAD. PRN NORCO ADMINISTERED. DENIES FURTHER NEEDS. CALL LIGHT IN REACH, WILL CONTINUE WITH PLAN OF CARE.
[2017-03-21 19:00] VITALS: BP 123/66
--- NOTE | 2017-03-21 19:00 | NUR ---
ASSISTED PATIENT ON AND OFF OF THE BEDPAN. SHE VOIDED 500ML. PATIENT DENIES FURTHER NEEDS AT THIS TIME. SHE IS RECIEVING OXYGEN VIA OXYMIZER AT 5L/MIN. PATIENT'S OXYGEN SATURATION BEFORE GETTING ON THE BEDPAN WAS 92%, AFTER GETTING OFF THE BEDPAN SHE DROPPED TO 85%. ENCOURAGED PATIENT TO BREATH THROUGH HER NOSE. OXYGEN SATURATION CAME BACK UP TO 92% AFTER A FEW MINUTES. PATIENT DENIES FURTHER NEEDS AT THIS TIME.
--- NOTE | 2017-03-21 19:40 | NUR ---
STARTED IV TO LEFT FOREARM 22G X'S 1 ATTEMPT.
[2017-03-22 00:55] VITALS: BP 110/64
[2017-03-22 04:00] VITALS: BP 109/67
[2017-03-22 04:58] LABS: BASOPHILS 0 % (0-2); EOSINOPHILS 0 % (0-7); HEMATOCRIT 41.9 % (36.0-48.0); HEMOGLOBIN 13.3 g/dL (12-16); IMMATURE GRANULOCYTES 0.6 % (0-5); LYMPHOCYTES 10.6 % (15-50); MCHC 31.7 g/dL (31.0-37.0); MEAN PLATELET VOLUME 9.7 fL (7.4-10.4); MONOCYTES 5.3 % (2-11); NEUTROPHILS 83.5 % (40-80); PLATELET COUNT 132 10x3/uL (130-400); RBC 4.44 10x6/uL (4.00-5.40); RDW 13.9 % (11.5-14.5); WBC 8.7 10x3/uL (4.8-10.8)
[2017-03-22 05:11] LABS: MCV 94.4 fL (80.0-100.0)
[2017-03-22 05:16] LABS: ALBUMIN 3.5 g/dL (3.4-5.0); BILIRUBIN - TOTAL 0.3 mg/dL (0.2-1.3); CALCIUM 9.2 mg/dL (8.5-10.1); POTASSIUM - SERUM 4.6 mmol/L (3.5-5.1); PROTEIN - SERUM 7.6 g/dL (6.4-8.2)
[2017-03-22 05:25] LABS: ANION GAP 8.2 mmol/L (8-16); CARBON DIOXIDE 45.4 mmol/L (21.0-32.0)
--- NOTE | 2017-03-22 07:00 | NUR ---
REPORT RECIEVED ASSUMED CARE. PATIENT IN BED WITH IV INTACT. NO COMPLAINTS AT THIS TIME. CALL LIGHT WITHIN REACH.
[2017-03-22 07:39] VITALS: BP 107/61
--- NOTE | 2017-03-22 08:45 | NUR ---
ASSESSMENT COMPLETE, VS STABLE. BSCDS OFF AT THIS TIME. PATIENT LEGS HOT AND SWEATY. TOLD HER SHE COULD HAVE A BREAK BUT WOULD HAVE TO PUT THEM BACK ON LATER. VERBALIZED UNDERSTANDING. CALL LIGHT WITHIN REACH.
--- NOTE | 2017-03-22 10:43 | NUR ---
PATIENT IN BED WITH IV INTACT. NO COMPLAINTS AT THIS TIME. CALL LIGHT WITHIN REACH.
--- NOTE | 2017-03-22 11:57 | NUR ---
PATIENT IN BED WITH EYES CLOSED RESTING QUIETLY. NO COMPLAINTS OR SIGNS OF DISTRESS. CALL LIGHT WITHIN REACH.
[2017-03-22 12:17] VITALS: BP 106/60
[2017-03-22 15:35] VITALS: BP 108/71
--- NOTE | 2017-03-22 15:56 | NUR ---
PATIENT SITTING UP IN CHAIR WITH NO COMPLAINTS AT THIS TIME. CALL LIGHT WITHIN REACH.
--- NOTE | 2017-03-22 18:15 | NUR ---
PATIENT IN BED WITH EYES CLOSED RESTING QUIETLY AT THIS TIME. IV INTACT. NO COMPLAINTS. CALL LIGHT WITHIN REACH.
[2017-03-22 20:00] VITALS: BP 122/74
--- NOTE | 2017-03-22 20:00 | NUR ---
ASSESSMENT PER FLOWSHEET. O2 ON 6L/M PER OXIMYZER. HOB UP 45 DEGREES. SR UP X2 CALL LIGHT WITHIN REACH SALINE LOCK PATENT LEFT WRIST. EXPIRATORY WHEEZES NO DISTRESS.
--- NOTE | 2017-03-22 21:20 | NUR ---
C/O PAIN ALL OVER RATES PAIN LEVEL #5 NORCO 5 TAB ONE PO GIVEN FOR PAIN CONTROL. MEDS GIVEN PER OCT.
[2017-03-23] VITALS: BP 120/72
--- NOTE | 2017-03-23 | NUR ---
PT NPO FOR CTA IN AM. PE PROTOCAL.
--- NOTE | 2017-03-23 02:30 | NUR ---
EYES CLOSED RESPIRATIONS WITH EASE AND UNLABORED.
[2017-03-23 04:00] VITALS: BP 126/78
--- NOTE | 2017-03-23 04:35 | NUR ---
RESTING QUIETLY REMAINS NPO FOR RADIOLOGY PROCEDURE.
[2017-03-23 05:23] LABS: BASOPHILS 0 % (0-2); EOSINOPHILS 0 % (0-7); HEMATOCRIT 44.5 % (36.0-48.0); HEMOGLOBIN 14.2 g/dL (12-16); IMMATURE GRANULOCYTES 0.5 % (0-5); LYMPHOCYTES 7.9 % (15-50); MCH 30.2 pg (26.0-34.0); MCHC 31.9 g/dL (31.0-37.0); MCV 94.7 fL (80.0-100.0); MEAN PLATELET VOLUME 9.6 fL (7.4-10.4); MONOCYTES 5.8 % (2-11); NEUTROPHILS 85.8 % (40-80)
[2017-03-23 05:24] LABS: PLATELET COUNT 159 10x3/uL (130-400)
[2017-03-23 05:48] LABS: ALBUMIN 3.6 g/dL (3.4-5.0); BILIRUBIN - TOTAL 0.4 mg/dL (0.2-1.3); CALCIUM 9.1 mg/dL (8.5-10.1); CREATININE - SERUM 1.1 mg/dL (0.6-1.3); POTASSIUM - SERUM 4.7 mmol/L (3.5-5.1); PROTEIN - SERUM 8.1 g/dL (6.4-8.2)
[2017-03-23 05:53] LABS: ANION GAP 13.3 mmol/L (8-16); CARBON DIOXIDE 41.4 mmol/L (21.0-32.0)
--- NOTE | 2017-03-23 07:00 | NUR ---
REPORT RECIEVED ASSUMED CARE. PATIENT IN BED WITHIV INTACT. NO COMPLAINTS. CALL LIGHT WITHIN REACH.
--- NOTE | 2017-03-23 07:38 | NUR ---
PATIENT IN BED WITH IV INTACT. NO COMPLAINTS. EYES CLOSED RESTING QUIETLY. CALL LIGHT WITHIN REACH.
[2017-03-23 08:35] VITALS: BP 129/77
--- NOTE | 2017-03-23 10:29 | NUR ---
NUTRITION MONITORING & EVAL CHART REVIEWED, PT VISIT. CURRENTLY NPO. WILL PROVIDE AHA DIET WHEN RESUMED. RD FOLLOWING
--- NOTE | 2017-03-23 10:46 | NUR ---
PATIENT IN BED WITH IV INTACT. NO COMPLAINTS. CALL LIGHT WITHIN REACH.
--- NOTE | 2017-03-23 11:36 | NUR ---
PATIENT HAS ADMITTING DIAGNOSIS OF CHF. ECHO PERFORMED 03/18/17 WITH DOCUMENTED EJECTION FRACTION OF >55%, THEREFORE NO CHRISTIAN OR ARB IS REQUIRED. WILL FOCUS ON DISCHARGE TEACHING AT DISCHARGE.
[2017-03-23 12:30] VITALS: BP 105/55
--- NOTE | 2017-03-23 12:55 | NUR ---
IV RE-SITED BY SAI VASCULAR NURSE, TO L WRIST. PATENT. DRSG CLEAN, DRY AND INTACT. NO COMPLAINTS AT THIS TIME.
--- NOTE | 2017-03-23 15:22 | NUR ---
PRN NORCO ADMINISTERED AT THIS TIME FOR PAIN. WILL CONTINUE WITH PLAN OF CARE.
[2017-03-23 15:47] VITALS: BP 124/72
[2017-03-23 18:27] LABS: CKMB 0.1 U/L (0.0-3.6); CREATINE KINASE 35 UL (21-215)
[2017-03-23 18:32] LABS: TROPONIN-I < 0.017 ng/mL (0.000-0.060)
--- NOTE | 2017-03-23 18:42 | NUR ---
PT RESTING IN BED. NO COMPLAINTS AT THIS TIME. CALL LIGHT WITHIN REACH.
--- NOTE | 2017-03-23 19:15 | NUR ---
BEDSIDE REPORT RECEIVED AND CARE OF PT ASSUMED. PT LYING IN HIGH SALINAS'S POSITION WATCHING TV. O2 IN USE VIA OXYMIZER AT 6L AND SPO2 92% AT THIS ASSESSMENT. WILL MONITOR [place] FOR NEEDS.
[2017-03-23 20:00] VITALS: BP 115/56
--- NOTE | 2017-03-23 21:20 | NUR ---
ASSISTED PT UP TO USE BSC. PT GETS VERY SOB WITH MINIMAL EXERTION.
--- NOTE | 2017-03-23 21:44 | NUR ---
HS MEDICATIONS GIVEN. ALSO GAVE SANDWICH AND JUICE FOR HS SNACK. WILL CONTINUE TO MONITOR FOR NEEDS.
[2017-03-24] VITALS: BP 113/62
--- NOTE | 2017-03-24 00:45 | NUR ---
ASSISTED PT UP TO USE BSC...SHE GOT VERY SOB AND O2 SATS DROPPED TO THE 70'S. TURNED O2 UP FOR A COUPLE OF MINUTES AND TALKED PT THROUGH BREATHING EXERCISED TILL O2 SATS CAME BACK UP TO THE 90'S...THEN ASSISTED PT BACK TO BED AND POSITIONED FOR COMFORT.
[2017-03-24 01:01] LABS: CREATINE KINASE 31 UL (21-215); TROPONIN-I < 0.017 ng/mL (0.000-0.060)
[2017-03-24 04:00] VITALS: BP 101/59
[2017-03-24 06:19] LABS: BASOPHILS 0 % (0-2); EOSINOPHILS 0 % (0-7); HEMATOCRIT 43.8 % (36.0-48.0); HEMOGLOBIN 14.1 g/dL (12-16); IMMATURE GRANULOCYTES 0.5 % (0-5); LYMPHOCYTES 6.9 % (15-50); MCH 30.3 pg (26.0-34.0); MCHC 32.2 g/dL (31.0-37.0); MEAN PLATELET VOLUME 9.8 fL (7.4-10.4); MONOCYTES 4.9 % (2-11); NEUTROPHILS 87.7 % (40-80); PLATELET COUNT 149 10x3/uL (130-400); RBC 4.66 10x6/uL (4.00-5.40); WBC 10.6 10x3/uL (4.8-10.8)
[2017-03-24 06:48] LABS: ALBUMIN 3.2 g/dL (3.4-5.0); ALKALINE PHOSPHATASE 69 U/L (46-116); ALT (SGPT) 17 U/L (10-68); BILIRUBIN - TOTAL 0.39 mg/dL (0.2-1.3); CALC OSMOLALITY 291 mosm/kg (275-300); CALCIUM 8.9 mg/dL (8.5-10.1); CHLORIDE - SERUM 92 mmol/L (98-107); CREATINE KINASE 27 UL (21-215); GLUCOSE 333 mg/dL (74-106); PROTEIN - SERUM 7.7 g/dL (6.4-8.2); SODIUM 135 mmol/L (136-145); UREA NITROGEN 39 mg/dL (7-18); eGFR NON AFRICAN AMERICAN 60 mL/min (90-120)
[2017-03-24 06:49] LABS: POTASSIUM - SERUM 5.6 mmol/L (3.5-5.1)
[2017-03-24 06:51] LABS: CARBON DIOXIDE 40.4 mmol/L (21.0-32.0); TROPONIN-I < 0.017 ng/mL (0.000-0.060)
--- NOTE | 2017-03-24 07:30 | NUR ---
RECIEVED PT DURING WALKING ROUNDS. PT RESTING IN BED WITH NO COMPLAINTS OF PAIN OR DISCOMFORT AT THIS TIME. ASSESSMENT DONE PER FLOWSHEET. BED IN LOW POSITION AND CALL LIGHT WITHIN REACH. WILL CONTINUE TO MONITOR.
[2017-03-24 08:40] VITALS: BP 124/55; BP 137/74
--- NOTE | 2017-03-24 11:07 | EC ---
PATIENT:AMBER MILLER DATE OF SERVICE: 03/18/17 SEX: F MEDICAL RECORD: [id number] DATE OF : 56 LOCATION:D.MS [facility] AGE OF PATIENT: 56 ADMISSION DATE: 03/18/17 REFERRING PHYSICIAN: INTERPRETING PHYSICIAN: AMARA MULLINS MD ECHOCARDIOGRAM REPORT ECHO CHARGES 4 ECHO COMPLETE CLINICAL DIAGNOSIS: CHF ECHOCARDIOGRAPHIC MEASUREMENTS (adult normal given) AC root (d.<3.7cm) 3.0 cm LV Septum d (<1.2 cm> 1.5 cm Valve Excursion 1.8 cm LV Septum (systole) 2.0 cm Left Atria (s.<4.0cm> 4.2 cm LVPW d(<1.2cm) 1.0 cm RV (d.<2.3cm) 2.9 cm LVPW (sytole) 1.4 cm LV diastole(<5.6CM) 5.6 cm MV E-F(>70mm/sec) cm LV systole 3.9 cm LVOT Diameter 1.8 cm MV exc.(>10mm) cm Est.ejection fraction (50-75%) % Pericardial Effusion N DOPPLER: LVIT cm/sec A 80.0 cm/sec E 102 cm/sec LA cm/sec RVSP 64.2 mmHg LVOT 154 cm/sec AOP1/2T m/s Asc. Ao 191 cm/sec RVOT 92.0 cm/sec RA cm/sec PA 124 cm/sec AV Gradient Peak 15.0 mmHg AV Mean 6.8 mmHg AV Area 2.0 cm MV Gradient Peak 5.5 mmHg MV Mean 2.4 mmHg MV Area cm COMMENTS: Infection Control Practitioner: Mahsa BAKEROE Paving And Surfacing Labourer: 3 Dr. Cuevas TAPE# PACS DATE OF SERVICE: 03/19/2017 Adequate 2D echo, color flow, spectral Doppler and M-Mode. LVH is present. LV internal dimension is normal. Wall motion is normal. EF is greater than 55%. Aortic valve is tricuspid. No stenosis by Doppler interrogation. Left atrium is minimally dilated at 4.2 cm. Mitral valve is thickened. Mild MR. RV internal dimensions appeared normal. Right atrium is dilated. Moderate TR. RV systolic pressure is estimated greater than or equal to 64 mmHg via the continuity equation. ECHOCARDIOGRAM REPORT [id number] AMBER MILLER TRANSINT:[id number] Voice Confirmation ID: [id number] DOCUMENT ID: [id number] 03/22/2017 Edited to correct date of service, dmm. AMARA MULLINS MD at 1107 CC: [id number] DICTATION DATE: 03/20/17 1030 REPAIRER PUMP: [id number] ADM IN [id number] [place] [address]
[2017-03-24 12:48] VITALS: BP 115/71
[2017-03-24 16:13] VITALS: BP 114/73
[2017-03-24 20:00] VITALS: BP 115/66; BP 135/79
--- NOTE | 2017-03-24 20:00 | NUR ---
ASSESSMENT PER FLOW SHEET.PT WITHOUT DISTRESS. 02 AT 6 LITERS PER OXYMIZER. TELEMETRY ON AND HR 99 SR PER GLASS BLOWING INSTRUCTOR.VERY PRODUCTIVE COUGH WITH LARGE AMOUNTS OF CLEAR,FROTHY SPUTUM.DENIES PAIN.SCD'S PLACED ON PT.CALL LIGHT IN REACH.
[2017-03-25] VITALS: BP 117/70
--- NOTE | 2017-03-25 02:46 | NUR ---
RESTING WITHOUT SIGNS OF DISTRESS.DOOR OPEN
[2017-03-25 03:34] VITALS: BP 126/79
[2017-03-25 05:44] LABS: BASOPHILS 0 % (0-2); EOSINOPHILS 0 % (0-7); HEMATOCRIT 43.6 % (36.0-48.0); HEMOGLOBIN 14.1 g/dL (12-16); IMMATURE GRANULOCYTES 0.6 % (0-5); LYMPHOCYTES 6.8 % (15-50); MCH 30.1 pg (26.0-34.0); MCHC 32.3 g/dL (31.0-37.0); MCV 93.2 fL (80.0-100.0); MEAN PLATELET VOLUME 9.7 fL (7.4-10.4); MONOCYTES 4.4 % (2-11); NEUTROPHILS 88.2 % (40-80); PLATELET COUNT 168 10x3/uL (130-400); RBC 4.68 10x6/uL (4.00-5.40); RDW 13.8 % (11.5-14.5); WBC 12.2 10x3/uL (4.8-10.8)
[2017-03-25 06:16] LABS: ALBUMIN 3.4 g/dL (3.4-5.0); ALKALINE PHOSPHATASE 68 U/L (46-116); ALT (SGPT) 13 U/L (10-68); CHLORIDE - SERUM 94 mmol/L (98-107); CREATININE - SERUM 0.8 mg/dL (0.6-1.3); POTASSIUM - SERUM 4.9 mmol/L (3.5-5.1); PROTEIN - SERUM 7.5 g/dL (6.4-8.2); SODIUM 137 mmol/L (136-145); UREA NITROGEN 35 mg/dL (7-18); eGFR NON AFRICAN AMERICAN 78 mL/min (90-120)
[2017-03-25 06:22] LABS: CALC OSMOLALITY 288 mosm/kg (275-300); GLUCOSE 223 mg/dL (74-106)
--- NOTE | 2017-03-25 07:49 | NUR ---
AWAKE AND ALERT AT THIS TIME. OXYGEN ON 6L VIA OXYMIZER WITH SATURATION 94%. DENIES FURTHER NEEDS AT THIS TIME. SRX2 WITH BED IN LOWEST POSITION AND WHEELS LOCKED. CALL LIGHT IN REACH, WILL CONTINUE WITH PLAN OF CARE.
[2017-03-25 08:11] VITALS: BP 137/77
[2017-03-25 11:54] VITALS: BP 119/79
[2017-03-25 16:32] VITALS: BP 129/85
--- NOTE | 2017-03-25 19:45 | NUR ---
ASSISTED PT TO THE BSC AND BACK TO BED. NO SIGNS OF DISTRESS NOTED. BED IN LOWEST POSITION AND CALL LIGHT WITHIN REACH. ENCOURAGED THE PT TO CALL IF SHE HAS NEEDS.
[2017-03-25 20:00] VITALS: BP 128/60
[2017-03-26] VITALS: BP 122/74
[2017-03-26 06:49] LABS: BASOPHILS 0 % (0-2); EOSINOPHILS 0 % (0-7); HEMATOCRIT 42.8 % (36.0-48.0); HEMOGLOBIN 14.1 g/dL (12-16); IMMATURE GRANULOCYTES 0.9 % (0-5); LYMPHOCYTES 13.7 % (15-50); MCH 30.1 pg (26.0-34.0); MCHC 32.9 g/dL (31.0-37.0); MCV 91.5 fL (80.0-100.0); NEUTROPHILS 79.4 % (40-80); PLATELET COUNT 167 10x3/uL (130-400); RBC 4.68 10x6/uL (4.00-5.40); WBC 11.6 10x3/uL (4.8-10.8)
[2017-03-26 07:06] LABS: ALBUMIN 3.3 g/dL (3.4-5.0); ALKALINE PHOSPHATASE 65 U/L (46-116); ALT (SGPT) 15 U/L (10-68); BILIRUBIN - TOTAL 0.41 mg/dL (0.2-1.3); CALCIUM 8.5 mg/dL (8.5-10.1); CHLORIDE - SERUM 94 mmol/L (98-107); CREATININE - SERUM 0.8 mg/dL (0.6-1.3); PROTEIN - SERUM 7.2 g/dL (6.4-8.2); SODIUM 136 mmol/L (136-145); UREA NITROGEN 36 mg/dL (7-18); eGFR NON AFRICAN AMERICAN 78 mL/min (90-120)
[2017-03-26 07:07] LABS: CALC OSMOLALITY 281 mosm/kg (275-300); GLUCOSE 136 mg/dL (74-106); POTASSIUM - SERUM 3.9 mmol/L (3.5-5.1)
--- NOTE | 2017-03-26 07:25 | NUR ---
PATIENT RECEIVED ALERT IN BED. NO SIGNS OF DISTRESS NOTED. ASSISTED UP TO CHAIR AT BEDSIDE. DENIES NEEDS. CALL LIGHT IN REACH.
[2017-03-26 07:52] VITALS: BP 144/74
--- NOTE | 2017-03-26 08:20 | NUR ---
NOTIFIED BY MICRO THAT PATIENT NEEDED TO BE IN DROPLET ISOLATION FOR POSSIBLE MRSA OF SPUTUM. PROPER SIGNS PLACED ON DOOR.
--- NOTE | 2017-03-26 08:53 | NUR ---
SITTING UP IN CHAIR AT BEDSIDE. NO SIGNS OF DISTRESS NOTED. SCHEDULED MEDICATION ADMINISTERED. DENIES NEEDS. CALL LIGHT IN REACH.
--- NOTE | 2017-03-26 08:53 | NUR ---
PATIENT SITTING UP IN CHAIR ALERT. SCHEDULED MEDICATION ADMINISTERED. EXPLAINED TO PATIENT WHY ISOLATION PRECAUTION WERE BEING USED. STATES UNDERSTANDING. CALL LIGHT IN REACH.
--- NOTE | 2017-03-26 11:09 | NUR ---
PATIENT IN BED RESTING QUIETLY WITH EYES CLOSED. RESPIRATIONS EVEN AND UNLABORED. WAKES EASY. ACCU CHECK 276. INSULIN PER SLIDING SCALE. DENIES NEEDS. SIDE RAILS UP X2. BED IN LOW POSITION. CALL LIGHT IN REACH.
[2017-03-26 12:35] VITALS: BP 134/68
--- NOTE | 2017-03-26 14:10 | NUR ---
PATIENT RESTING QUIETLY IN BED. NO SIGNS OF DISTRESS NOTED. IV ABX INITIATED PER ORDER. IV TO LEFT ARM PATENT. FLUSHES EASY. NO REDNESS OR INFLAMMATION NOTED. SIDE RAILS UP X2. BED IN LOW POSITION. CALL LIGHT IN REACH.
[2017-03-26 15:53] VITALS: BP 123/74
--- NOTE | 2017-03-26 17:24 | NUR ---
ACCU CHECK 131. NO INSULIN PER SLIDING SCALE. DINNER TRAY SET UP. DENIES NEEDS. SIDE RAILS UP X2. BED IN LOW POSITION. CALL LIGHT IN REACH.
--- NOTE | 2017-03-26 19:50 | NUR ---
PT RESTING IN BED AND DENIES NEEDS AT THIS TIME. BED IN LOWEST POSITION AND CALL LIGHT WITHIN REACH. ENCOURAGED THE PT TO CALL IF SHE HAS NEEDS.
[2017-03-26 20:00] VITALS: BP 128/68
[2017-03-27 04:00] VITALS: BP 124/71
[2017-03-27 05:40] LABS: BASOPHILS 0 % (0-2); EOSINOPHILS 0 % (0-7); HEMATOCRIT 39.9 % (36.0-48.0); HEMOGLOBIN 13.2 g/dL (12-16); LYMPHOCYTES 15.6 % (15-50); MCH 30.3 pg (26.0-34.0); MCHC 33.1 g/dL (31.0-37.0); MCV 91.7 fL (80.0-100.0); MEAN PLATELET VOLUME 9.1 fL (7.4-10.4); MONOCYTES 6.5 % (2-11); NEUTROPHILS 76.9 % (40-80); PLATELET COUNT 134 10x3/uL (130-400); RBC 4.35 10x6/uL (4.00-5.40); RDW 13.7 % (11.5-14.5); WBC 9.5 10x3/uL (4.8-10.8)
[2017-03-27 06:00] LABS: ALBUMIN 2.9 g/dL (3.4-5.0); ALKALINE PHOSPHATASE 54 U/L (46-116); ALT (SGPT) 14 U/L (10-68); CALC OSMOLALITY 285 mosm/kg (275-300); CALCIUM 8.4 mg/dL (8.5-10.1); CARBON DIOXIDE 37.3 mmol/L (21.0-32.0); CHLORIDE - SERUM 98 mmol/L (98-107); CREATININE - SERUM 0.7 mg/dL (0.6-1.3); GLUCOSE 111 mg/dL (74-106); POTASSIUM - SERUM 4.1 mmol/L (3.5-5.1); PROTEIN - SERUM 6.4 g/dL (6.4-8.2); SODIUM 139 mmol/L (136-145); UREA NITROGEN 31 mg/dL (7-18); eGFR NON AFRICAN AMERICAN > 90 mL/min (90-120)
--- NOTE | 2017-03-27 07:35 | NUR ---
ASSESSMENT COMPLETE. SL TO R AC AND L FA. O2 7L PER OXIMIZER IN USE. MANAGER OF ENGINEERING SHOWING ST 104 PER TECH. DROPLET ISOLATION. CONT PULSE OX IN USE. DENIES ANY NEEDS AT PRESENT.
[2017-03-27 08:23] VITALS: BP 133/81
--- NOTE | 2017-03-27 12:00 | NUR ---
NO CHANGES NOTED AT PRESENT.
[2017-03-27 12:05] VITALS: BP 130/72
--- NOTE | 2017-03-27 13:55 | NUR ---
NUTRITION MONITORING & EVAL CHART REVIEWED, PT REMAINS IN ISOLATION. GOOD INTAKE AHA DIET. WILL CONTINUE TO PROVIDE DIET, MONITOR PO INTAKE. RD FOLLOWING
[2017-03-27 16:05] VITALS: BP 136/66
[2017-03-27 20:00] VITALS: BP 135/68
[2017-03-28] VITALS: BP 149/59
[2017-03-28 04:00] VITALS: BP 144/64
[2017-03-28 05:19] LABS: BASOPHILS 0 % (0-2); EOSINOPHILS 0.4 % (0-7); HEMATOCRIT 40.9 % (36.0-48.0); HEMOGLOBIN 13.1 g/dL (12-16); IMMATURE GRANULOCYTES 1.6 % (0-5); LYMPHOCYTES 33.6 % (15-50); MCH 29.9 pg (26.0-34.0); MCV 93.4 fL (80.0-100.0); MEAN PLATELET VOLUME 9.7 fL (7.4-10.4); NEUTROPHILS 56.4 % (40-80); PLATELET COUNT 131 10x3/uL (130-400); RBC 4.38 10x6/uL (4.00-5.40); WBC 8.2 10x3/uL (4.8-10.8)
[2017-03-28 05:52] LABS: ALBUMIN 2.8 g/dL (3.4-5.0); ALKALINE PHOSPHATASE 52 U/L (46-116); CALC OSMOLALITY 282 mosm/kg (275-300); CALCIUM 8.2 mg/dL (8.5-10.1); CARBON DIOXIDE 38.7 mmol/L (21.0-32.0); CHLORIDE - SERUM 99 mmol/L (98-107); CREATININE - SERUM 0.7 mg/dL (0.6-1.3); GLUCOSE 86 mg/dL (74-106); SODIUM 140 mmol/L (136-145); UREA NITROGEN 27 mg/dL (7-18); eGFR NON AFRICAN AMERICAN > 90 mL/min (90-120)
[2017-03-28 05:54] LABS: ALT (SGPT) 19 U/L (10-68); POTASSIUM - SERUM 3.2 mmol/L (3.5-5.1)
--- NOTE | 2017-03-28 07:45 | NUR ---
ASSESSMENT COMPLETE. SL TO R AC AND L FA. O2 4L PER OXIMIZER IN USE. NONPRODUCTIVE COUGH. CONTACT ISOLATION. HVAC SERVICES PROFESSIONAL SHOWING ST 110 PER TECH.
[2017-03-28 09:05] VITALS: BP 119/67
--- NOTE | 2017-03-28 10:30 | NUR ---
DR JAIMES STATES THAT DAVIDTENT NO LONGER NEEDS ISOLATION. OK PER CESAR NAIDU, INFECTION CONTROL NURSE TO DC ISOLATION. PATIENT NOTIFIED AND VOICED UNDERSTANDING.
--- NOTE | 2017-03-28 10:58 | NUR ---
CM MET WITH PATIENT REGARDING D/C NEEDS AND PLANS. PATIENT AGREED TO HOME HEALTH AND SIGNED THE MIKE FORM WITH [facility].
--- NOTE | 2017-03-28 11:04 | NUR ---
CM MET WITH PATIENT REGARDING D/C NEEDS AND PLANS. PATIENT AGREED TO HOME HEALTH AND SIGNED THE MIKE FORM WITH [facility] OR [facility].
--- NOTE | 2017-03-28 13:15 | NUR ---
WHILE WALKING IN HALLWAY BECAME SHAKY AND FELT DIZZY. PATIENT BECAME LESS DIZZY AND SHAKY AFTER SITTING. ASSISTED BACK TO ROOM.
[2017-03-28 13:22] VITALS: BP 129/70
--- NOTE | 2017-03-28 16:00 | NUR ---
DENIES ANY NEEDS AT THIS TIME.
[2017-03-28 17:36] VITALS: BP 110/67
[2017-03-28 20:00] VITALS: BP 110/65
--- NOTE | 2017-03-28 22:45 | NUR ---
PT RESTING IN BED AND DENIES NEEDS AT THIS TIME. ADMINISTERED MEDS PER ORDERS AND COMPLETED ASSESSMENT. BED IN LOWEST POSITION AND CALL LIGHT WITHIN REACH. ENCOURAGED THE PATIENT TO CALL IF SHE HAS FURTHER NEEDS.
[2017-03-29] VITALS: BP 104/64
[2017-03-29 04:00] VITALS: BP 114/70
[2017-03-29 05:49] LABS: BASOPHILS 0.1 % (0-2); EOSINOPHILS 0.5 % (0-7); HEMATOCRIT 39.8 % (36.0-48.0); HEMOGLOBIN 12.8 g/dL (12-16); IMMATURE GRANULOCYTES 1.9 % (0-5); LYMPHOCYTES 28.4 % (15-50); MCH 30.2 pg (26.0-34.0); MCHC 32.2 g/dL (31.0-37.0); MCV 93.9 fL (80.0-100.0); MEAN PLATELET VOLUME 9.2 fL (7.4-10.4); MONOCYTES 5.8 % (2-11); NEUTROPHILS 63.3 % (40-80); PLATELET COUNT 129 10x3/uL (130-400); RBC 4.24 10x6/uL (4.00-5.40); RDW 14.1 % (11.5-14.5); WBC 9.4 10x3/uL (4.8-10.8)
[2017-03-29 06:18] LABS: ALBUMIN 2.9 g/dL (3.4-5.0); BILIRUBIN - TOTAL 0.4 mg/dL (0.2-1.3); CALCIUM 8.2 mg/dL (8.5-10.1); PROTEIN - SERUM 5.8 g/dL (6.4-8.2)
[2017-03-29 06:21] LABS: ANION GAP 7.1 mmol/L (8-16); CREATININE - SERUM 0.9 mg/dL (0.6-1.3); POTASSIUM - SERUM 4.1 mmol/L (3.5-5.1)
--- NOTE | 2017-03-29 07:30 | NUR ---
SLEEPING, NO DISTRESS NOTED, BED LOWEST POSITION, CALL LIGHT IN REACH, BREATHING EVEN AND UNLABORED, WILL CONTINUE TO MONITOR
[2017-03-29 08:00] VITALS: BP 121/63
[2017-03-29] MEDS ORDERED: VIBRAMYCIN 100100 MG PO (09:43)
[2017-03-29] MEDS ORDERED: BROVANA15 MCG/2 M INH (09:43)
[2017-03-29] MEDS ORDERED: ALBUTEROL2.5 MG/3 M INH (09:43)
[2017-03-29] MEDS ORDERED: IPRAT-ALBUT 0.5-3 ML INH (09:44)
[2017-03-29] MEDS ORDERED: PULMICORT0.25 MG/1 UPD (09:45)
[2017-03-29] MEDS ORDERED: FLORAJEN3 CAPS460 MG PO (09:45)
[2017-03-29] MEDS ORDERED: PREDNISONE10 MG PO (09:46)
[2017-03-29] MEDS ORDERED: SALINE NASAL SP45 ML NASAL (09:51)
--- NOTE | 2017-03-29 11:46 | NUR ---
CM REASSESSMENT NOTE: PATIENT IS DISCHARGING HOME TODAY WITH [facility]. FAMILY IS DRIVING HER AND SHE HAD NO OTHER NEEDS.
[2017-03-29 12:05] VITALS: BP 155/74
--- NOTE | 2017-03-29 12:31 | NUR ---
PT SITTING UP IN CHAIR AT THIS TIME WITH NO VISABLE SIGNS OF PAIN OR DISCOMFORT. CALL LIGHT WITHIN REACH. WILL CONTINUE TO MONITOR.
--- NOTE | 2017-03-29 15:55 | NUR ---
DISCHARGE PAPERS AND INSTRUCTIONS GIVEN, QUESTIONS ANSWERED, IV REMOVED TIP INTACT, DISCHARGED PER WC WITH BELONGINGS
== END 2017-03-29 15:56 | disposition home health service (06) | DRG 291 ==
LOC: D.ER 20:34 → D.MS 22:57
PROVIDERS: Emergency Medicine; Family Medicine; ADMIT Family Medicine
DX: I50.31 Acute diastolic (congestive) heart failure (principal); J18.9 Pneumonia, unspecified organism; J96.22 Acute and chronic respiratory failure with hypercapnia; J96.21 Acute and chronic respiratory failure with hypoxia; J44.0 Chronic obstructive pulmonary disease with (acute) lower respiratory infection; J44.1 Chronic obstructive pulmonary disease with (acute) exacerbation; D61.818 Other pancytopenia; E87.0 Hyperosmolality and hypernatremia; E66.2 Morbid (severe) obesity with alveolar hypoventilation; Z68.41 Body mass index [BMI] 40.0-44.9, adult; D64.9 Anemia, unspecified; E87.6 Hypokalemia; F31.9 Bipolar disorder, unspecified; I25.10 Atherosclerotic heart disease of native coronary artery without angina pectoris; Z87.891 Personal history of nicotine dependence

== ENCOUNTER 2017-05-25 15:22 | Inpatient (IN) | payer MEDICARE, MEDICAID ==
[~2017-05-25 15:22] MED LIST changes: +ALBUTEROL2.5 MG/3 M INH; +BROVANA15 MCG/2 M INH; +FLORAJEN3 CAPS460 MG PO; +IPRAT-ALBUT 0.5-3 ML INH; +PULMICORT0.25 MG/1 UPD; +SALINE NASAL SP45 ML NASAL; +VIBRAMYCIN 100100 MG PO
[2017-05-25 16:35] LABS: BASOPHILS 0.2 % (0-2); EOSINOPHILS 4.2 % (0-7); HEMATOCRIT 36.9 % (36.0-48.0); HEMOGLOBIN 11.4 g/dL (12-16); IMMATURE GRANULOCYTES 0.6 % (0-5); LYMPHOCYTES 33.7 % (15-50); MCH 29.1 pg (26.0-34.0); MCHC 30.9 g/dL (31.0-37.0); MCV 94.1 fL (80.0-100.0); MEAN PLATELET VOLUME 9.4 fL (7.4-10.4); MONOCYTES 7.8 % (2-11); NEUTROPHILS 53.5 % (40-80); PLATELET COUNT 114 10x3/uL (130-400); RBC 3.92 10x6/uL (4.00-5.40); RDW 14.7 % (11.5-14.5)
[2017-05-25 17:02] LABS: ALBUMIN 2.9 g/dL (3.4-5.0); ALKALINE PHOSPHATASE 65 U/L (46-116); ALT (SGPT) 25 U/L (10-68); BILIRUBIN - TOTAL 0.23 mg/dL (0.2-1.3); CALCIUM 8.5 mg/dL (8.5-10.1); CHLORIDE - SERUM 101 mmol/L (98-107); CREATINE KINASE 38 UL (21-215); CREATININE - SERUM 0.7 mg/dL (0.6-1.3); POTASSIUM - SERUM 3.7 mmol/L (3.5-5.1); PRO BNP 210 pg/mL (0-125); PROTEIN - SERUM 7.2 g/dL (6.4-8.2); SODIUM 143 mmol/L (136-145); UREA NITROGEN 8 mg/dL (7-18); eGFR NON AFRICAN AMERICAN > 90 mL/min (90-120)
[2017-05-25 17:05] LABS: CALC OSMOLALITY 286 mosm/kg (275-300); GLUCOSE 169 mg/dL (74-106)
[2017-05-25 17:07] LABS: CARBON DIOXIDE 43.3 mmol/L (21.0-32.0)
--- NOTE | 2017-05-25 18:39 | NUR ---
PATIENT TO ROOM FROM ER, PATIENT IS ALERT AND ORIENTED AT THIS TIME. PATIENT HAS 20 G IV IN R HAND THAT IS SL AT THIS TIME. PATIENT ON 4L/MIN VIA NC WITH NAD NOTED AT THIS TIME. PATIENT DENIES ANY NEEDS AT THIS TIME. WILL CONT TO MONITOR. CPOC
--- NOTE | 2017-05-25 20:00 | NUR ---
PT IN BED RESTING QUEITLY. 8 OZ OF APPLE JUICE GIVEN. DENIES ANY FURTHER NEEDS AT THIS TIME. CALL LIGHT WITHIN REACH. BED IN LOW POSITION.
[2017-05-26 01:41] VITALS: BMI 41.1
[2017-05-26 04:00] VITALS: BP 125/64
--- NOTE | 2017-05-26 04:46 | NUR ---
PT IN BED RESTING QUEITLY. DENIES ANY PAIN OR NEEDS AT THIS TIME. BED IN LOW POSITION, CALL LIGHT WITHIN REACH.
--- NOTE | 2017-05-26 05:07 | NUR ---
PT IS GOING FROM [facility] TO A FIB ON TELEMETRY. TELEMETRY STRIPS PRINTED, WILL PUT IN CHART. PT DENIES PAIN. WILL CTM.
--- NOTE | 2017-05-26 07:20 | NUR ---
REPORT RECIVED. RR EVEN AND UNLABORED. PT REPORTS "NOT BEING ABLE TO STAY AWAKE." PT DENIES FURTHER NEEDS, WILL CTM.
[2017-05-26 08:00] VITALS: BP 125/63
[2017-05-26 12:00] VITALS: BP 122/71
[2017-05-26] MEDS ORDERED: DEPAKOTE500 MG PO (13:39)
[2017-05-26] MEDS ORDERED: BETAPACE 120 M120 MG PO (13:44)
[2017-05-26] MEDS ORDERED: HYDROCODONE-APA1 TAB PO (13:45)
[2017-05-26] MEDS ORDERED: ADVAIR 250/501 DISK INH (13:46)
--- NOTE | 2017-05-26 13:47 | NUR ---
MED REC REVIEWED WITH PT AND COMPLETED MOST ACCURATE PER PT.
[2017-05-26 15:31] VITALS: BMI 41.1
--- NOTE | 2017-05-26 15:49 | NUR ---
ASSISTED PT TO BATHROOM X1 ASSIST. PT TOLERATED ACTIVITY WELL. ASKED PT HOW SHE FELT DUE TO HER HR BEING ELEVATED EARLIER. SHE REPORTS THAT HER LUNGS FEEL "WORN OUT." WILL CTM.
[2017-05-26 16:00] VITALS: BP 97/57
--- NOTE | 2017-05-26 18:10 | NUR ---
PT RESTING QUILETY, ASSISTED PT OFF BSC, BACK TO BED. RR EVEN AND UNLABORED. WILL GIVE REPORT ON PT CONDTION FOR THE DAY.
--- NOTE | 2017-05-26 19:49 | NUR ---
PT IN BED RESTING QUEITLY. GIVEN WINSTON PEACE, MATIAS, AND NAP[place]ON. ASSISTED TO BEDSIDE COMMODE. 300 ML CLEAR YELLOW URINE. DENIES ANY PAIN OR NEEDS AT THIS TIME. BED IN LOW POSITION, CALL LIGHT WITHIN REACH.
[2017-05-27 01:51] VITALS: BP 128/68
--- NOTE | 2017-05-27 02:18 | NUR ---
PT GOING FROM NSR IN THE 80'S TO SINUS TACH IN THE 160'S ON TELEMETRY. PT IS IN BED RESTING QUEITLY. DENIES ANY PAIN OR DISCOMFORT. BED IN LOW POSITION CALL LIGHT WITHIN REACH.
[2017-05-27 06:00] VITALS: BP 127/74
--- NOTE | 2017-05-27 07:10 | NUR ---
RECEIVED REPORT. ASSUMED CARE OF PATIENT. PATIENT RESTING IN BED WITH EYES CLOSED. EASILY AROUSED. RESP EVEN AND UNLABORED, SOMEWHAT SHALLOW. PATIENT STATES SHE IS VERY TIRED THIS MORNING. CALL LIGHT WITHIN REACH. TELEMETRY PATENT. REPORTED THAT PATIENT HAS OCCASIONAL PERIODS OF SVT UP TO 160-170 AND CONVERTS BACK TO NS RHYTHM WITHOUT ANY INTERVENTION. PATIENT DENIES NEEDS AT THIS TIME. NO ACUTE DISTRESS.
[2017-05-27 07:15] LABS: BASOPHILS 0 % (0-2); EOSINOPHILS 0 % (0-7); HEMATOCRIT 38.3 % (36.0-48.0); HEMOGLOBIN 12.2 g/dL (12-16); IMMATURE GRANULOCYTES 0.6 % (0-5); LYMPHOCYTES 13.3 % (15-50); MCH 29.1 pg (26.0-34.0); MCHC 31.9 g/dL (31.0-37.0); MEAN PLATELET VOLUME 10.1 fL (7.4-10.4); MONOCYTES 2.3 % (2-11); NEUTROPHILS 83.8 % (40-80); RBC 4.19 10x6/uL (4.00-5.40); RDW 14.3 % (11.5-14.5)
[2017-05-27 07:16] LABS: MCV 91.4 fL (80.0-100.0); PLATELET COUNT 147 10x3/uL (130-400); WBC 8.4 10x3/uL (4.8-10.8)
[2017-05-27 07:23] LABS: ANION GAP 8.6 mmol/L (8-16); CARBON DIOXIDE 39.2 mmol/L (21.0-32.0); POTASSIUM - SERUM 3.8 mmol/L (3.5-5.1)
[2017-05-27 07:24] LABS: CREATININE - SERUM 0.9 mg/dL (0.6-1.3)
--- NOTE | 2017-05-27 07:40 | NUR ---
CARDIOLOGY PHYSICIAN ASSISTANT ROXANE REPORTS PATIENT WITH SVT OF 170. PATIENT RESTING IN BED. PATIENT STATES SHE FEELS FINE AT THIS TIME, JUST SLEEPY. CALL LIGHT WITHIN REACH. PATIENT RETURNED TO NS RHYTHM. NO ACUTE DISTRESS.
[2017-05-27 08:19] VITALS: BP 125/72
[2017-05-27 11:46] VITALS: BP 157/86
--- NOTE | 2017-05-27 14:04 | NUR ---
PATIENT MADE COMMENT THAT HER TV DID NOT WORK AND THAT A WORK ORDER WAS PLACED YESTERDAY. 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 POWER CORD CONNECTED, PROBLEM SOLVED. PATIENT ABLE TO NOW WATCH TELEVISION. PATIENT HAPPY
--- NOTE | 2017-05-27 14:49 | NUR ---
ABILITY JUST NOW AVAILABLE FROM PHARMACY.
[2017-05-27 16:01] VITALS: BP 126/54
--- NOTE | 2017-05-27 16:31 | NUR ---
LYING IN BED WITH EYES CLOSED. EASILY AROUSED. NO DISTRESS. CALL LIGHT WITHIN REACH. DENIES NEEDS AT THIS TIME.
--- NOTE | 2017-05-27 19:55 | NUR ---
PT RESTING IN BED. NO DISTRESS. NONLABORED RESPIRATIONS. SR PER TELEMETRY. PIV TO RIGHT HAND SALINE LOCKED. DENIES PAIN OR DISCOMFORT. WILL CALL FOR STAND BY ASSISTANCE WHEN SHE NEEDS TO GO TO THE BATHROOM. BILATERAL LOWER EXTREMITIES WITH EDEMA. SEE SHIFT ASSESSMENT. CPOC.
[2017-05-27 20:00] VITALS: BP 117/59
--- NOTE | 2017-05-27 21:50 | NUR ---
BEDTIME MEDS GIVEN. NO OTHER NEEDS. WILL MONITOR.
[2017-05-28] VITALS: BP 113/54
--- NOTE | 2017-05-28 02:47 | NUR ---
RESTING IN BED. IV ABT NOW UP AND INFUSING. NO DISTRESS. SR PER TELEMETRY.
[2017-05-28 04:00] VITALS: BP 116/53
[2017-05-28 06:57] LABS: BASOPHILS 0.1 % (0-2); EOSINOPHILS 0.2 % (0-7); HEMATOCRIT 38.3 % (36.0-48.0); HEMOGLOBIN 11.8 g/dL (12-16); IMMATURE GRANULOCYTES 0.5 % (0-5); LYMPHOCYTES 22.9 % (15-50); MCH 28.4 pg (26.0-34.0); MCHC 30.8 g/dL (31.0-37.0); MCV 92.3 fL (80.0-100.0); MEAN PLATELET VOLUME 10.2 fL (7.4-10.4); MONOCYTES 5.3 % (2-11); PLATELET COUNT 149 10x3/uL (130-400); RBC 4.15 10x6/uL (4.00-5.40); RDW 14.9 % (11.5-14.5)
[2017-05-28 07:00] LABS: WBC 12.4 10x3/uL (4.8-10.8)
--- NOTE | 2017-05-28 07:00 | NUR ---
RECEIVED REPORT. ASSUMED CARE OF PATIENT. CALL LIGHT WITHIN REACH. RESTING WITH EYES CLOSED. RESP EVEN AND UNLABORED. NO DISTRESS.
[2017-05-28 07:05] LABS: CALC OSMOLALITY 290 mosm/kg (275-300); CALCIUM 9.1 mg/dL (8.5-10.1); CARBON DIOXIDE 38.8 mmol/L (21.0-32.0); CHLORIDE - SERUM 97 mmol/L (98-107); CREATININE - SERUM 0.8 mg/dL (0.6-1.3); GLUCOSE 238 mg/dL (74-106); POTASSIUM - SERUM 3.6 mmol/L (3.5-5.1); SODIUM 141 mmol/L (136-145); eGFR NON AFRICAN AMERICAN 78 mL/min (90-120)
[2017-05-28 07:09] LABS: UREA NITROGEN 18 mg/dL (7-18)
[2017-05-28 07:58] VITALS: BP 126/63
[2017-05-28 11:14] VITALS: BP 112/56
--- NOTE | 2017-05-28 12:00 | NUR ---
SITTING UP IN BED CONSUMING NOON MEAL. NO DISTRESS. DENIES NEEDS. CALL LIGHT WITHIN REACH.
[2017-05-28] MEDS ORDERED: VIBRAMYCIN 100100 MG PO (13:47)
[2017-05-28] MEDS ORDERED: PREDNISONE10 MG PO (13:47)
[2017-05-28] MEDS ORDERED: FLORAJEN3 CAPS460 MG PO (13:48)
--- NOTE | 2017-05-28 17:17 | NUR ---
PATIENT SITTING IN BED, COMPLETED PM MEAL. AWAITING IV ANTIBIOTICS TO COMPLETE SO PATIENT CAN DISCHARGE HOME. NO DISTRESS.
--- NOTE | 2017-05-28 18:13 | NUR ---
1750 DISCHARGE INSTRUCTIONS PROVIDED. PATIENT VERBALIZED UNDERSTANDING OF ALL INSTRUCTIONS PROVIDED. PATIENT INFORMED MEDICATION ESCRIBED TO [facility]. PATIENT ASKED WHICH [facility], SENT TO [facility]. PATIENT STATES SHE USES THE ONE ON [address]. CALLED [facility] [address] AND SPOKE TO INDIRA, HE STATED SHE COULD CALL THE [address] [facility] AND PICK THEM UP IN THE MORNING OVER THERE BY HAVING THE PRESCRIPTIONS TRANSFERRED. VERBALIZED THIS INFORMATION TO PATIENT AND SHE STATED SHE WOULD CALL THEM IN THE MORNING SINCE THEY CLOSE AT 1800 AND WILL NOT MAKE IT IN TIME TO PICK THEM UP TONIGHT ANYWAY. 180 20 GAUGE IV REMOVED FROM RIGHT WRIST. NO BLEEDING FROM SITE. 2X2 GAUZE APPLIED AND SECURED WITH TAPE. CATHETER TIP IN TACT. TOLERATED IV REMOVAL WELL. 181 PATIENT IN ROOM GETTING DRESSED WAITING FOR HER DAUGHTER TO PICK HER UP.
--- NOTE | 2017-05-28 19:09 | NUR ---
8970 PATIENT LEFT UNIT VIA WHEELCHAIR WITH ALL PERSONAL BELONGINGS. PATIENT DISCHARGED TO HOME WITH FAMILY. NO DISTRESS UPON LEAVING UNIT. PATIENT THANKED THIS SLIP CASTER FOR ALL CARES RENDERED DURING HER STAY.
--- NOTE | 2017-06-05 11:44 | CN ---
PATIENT NAME:AMBER MILLER MEDICAL RECORD: [id number] : 56 LOCATION:D. D.2133 ADMIT DATE: 05/25/17 ACCOUNT: [id number] CONSULTING PHYSICIAN: COREY JAIMES MD REFERRING PHYSICIAN: IRIS CHUA MD DATE OF CONSULTATION: 05/26/2017 CONSULT REQUESTING PHYSICIAN: Iris Chua MD REASON FOR CONSULTATION: Acute exacerbation of COPD. HISTORY OF PRESENT ILLNESS: Ms. Miller is a 56-year-old female, very well known to me, who has severe COPD, pulmonary hypertension. According to the patient, she was doing fair. She was evaluated at home by the visiting nurse, found out the patient has dyspnea. She has swelling of the lower extremities. She had a cough without significant sputum production. Sometimes, she is producing white yellow color sputum production. She do not hear herself wheezing. There are no fever or chills, no night sweats. This morning, the patient was in AFib and now she is converted back into sinus rhythm. REVIEW OF SYSTEMS: As in history of present illness. PAST MEDICAL HISTORY: 1. COPD of severe degree. 2. Chronic hypoxic respiratory failure. 3. History of pneumonia. 4. Severe pulmonary hypertension. 5. Coronary artery disease. 6. History of transient ischemic attack. 7. History of seizure. PAST SURGICAL HISTORY: 1. She had a tubal ligation. 2. Cardiac catheterization. ALLERGIES: There are no known drug allergies. MEDICATIONS: On [employer] was reviewed. PERSONAL AND SOCIAL HISTORY: The patient is ex-smoker until recently. She is a nondrinker. FAMILY HISTORY: Noncontributory. PHYSICAL EXAMINATION: GENERAL: Now, the patient is lying comfortably in bed. She is not in acute distress. VITAL SIGNS: The blood pressure is 122/71, pulse is 90-143, temperature 97.5, SPO2 is 95% on 4 liters nasal cannula. HEENT: Conjunctivae are pink. Sclerae nonicteric. NECK: Supple. There is elevated JVD. CHEST: There are bibasilar crackles. No wheezing. HEART: Rhythm regular, normal sound, no murmur. ABDOMEN: Soft, bowel sounds present. No hepatosplenomegaly. RECTAL: Not done. CONSULT REPORT [id number] AMBER MILLER EXTREMITIES: No cyanosis, no clubbing. There are 2+ ankle edema. SKIN: Warm, normal turgor. CENTRAL NERVOUS SYSTEM: The patient is awake and alert. There is no obvious cranial nerve abnormality. The gait was not tested. IMAGING: Chest radiograph, there is increased interstitial marking, no consolidation. LABORATORY DATA: CBC; WBC 5, hemoglobin 11.4, hematocrit 36.9, the platelet count 114. Chemistry; sodium is 143, potassium 3.7, chloride 101, bicarbonate is 43.3, BUN is 8, creatinine is 0.7, glucose 169. IMPRESSION: 1. Chronic hypoxic respiratory failure. 2. Acute exacerbation of chronic obstructive pulmonary disease. 3. Possible acute tracheobronchitis. 4. Severe pulmonary hypertension, 64 mmHg secondary to end-stage pulmonary disease. 5. Dependent edema secondary to right heart failure and pulmonary hypertension. RECOMMENDATION: 1. Continue Lasix. 2. Start doxycycline IV, methylprednisolone IV, albuterol/ipratropium nebulizer, Brovana/budesonide nebulizer. Discontinue IV fluid. Start her Diamox 250 mg b.i.d. Followup labs and chest radiograph. Dr. Chua, thank you for involving me in the care of Ms. Miller. TRANSINT:[id number] Voice Confirmation ID: [id number] DOCUMENT ID: [id number] COREY JAIMES MD at 1144 CC: EDUAR DEL REAL MD [id number] DICTATION DATE: 05/26/17 1505 SUPERVISOR ENGRAVING: 05/26/17 1642 DIS IN 05/28/17 [place] [id number] [place] [id number]
--- NOTE | 2017-06-12 15:54 | DS ---
PATIENT:AMBER MILLER :56 MEDICAL RECORD: [id number] DISCHARGE SUMMARY ADMISSION DATE: 05/25/17 DISCHARGE DATE: 05/28/17 DATE OF ADMISSION: 05/25/2017. DATE OF DISCHARGE: 05/28/2017. DISCHARGE DIAGNOSES: 1. Shortness of breath. 2. Coronary artery disease. 3. Pulmonary hypertension. 4. Chronic obstructive pulmonary disease exacerbation. 5. Chronic hypoxic respiratory failure. 6. Dependent edema secondary to right heart failure and pulmonary hypertension. CONSULTS: 1. Dr. Gordon 2. Dr. Garrett [facility]RSE: The full H&P is listed elsewhere in the chart for this 56-year-old female patient with severe COPD and pulmonary hypertension, who presented with exacerbation of her COPD. She was placed in the inpatient setting, started on IV doxycycline, IV steroids, and aggressive pulmonary toilet. She was also started on some Diamox b.i.d. for her right-sided heart failure. Cardiology was consulted due to her history; however, no intervention or workup was indicated from the cardiology team and they did sign off. She had some transient atrial burden due to her respiratory status and her antiarrhythmic Rythmol was increased from b.i.d. to t.i.d. Her clinical condition improved. She was thought to be stable for discharge home. See med rec. TRANSINT:[id number] Voice Confirmation ID: [id number] DOCUMENT ID: [id number] Dictated By: KALE ANDERSON I have interviewed/examined the above patient and agree with these documented findings. FLOWER CHUA MD at 1110 at 1553 CC: [id number] DICTATION DATE: 06/07/17 0859 INTERVENTION SPECIALIST: 06/07/17 1357 DIS IN 05/28/17 [facility] [address] [place] [place] [id number]
== END 2017-05-28 18:50 | disposition home or self-care (01) | DRG 191 ==
LOC: D.ER 15:22 → D.M2 18:00
PROVIDERS: Emergency Medicine; ADMIT Family Medicine
DX: J44.1 Chronic obstructive pulmonary disease with (acute) exacerbation (principal); J96.11 Chronic respiratory failure with hypoxia; I27.20 Pulmonary hypertension, unspecified; I25.10 Atherosclerotic heart disease of native coronary artery without angina pectoris; D64.9 Anemia, unspecified; D69.6 Thrombocytopenia, unspecified; I48.0 Paroxysmal atrial fibrillation; G47.33 Obstructive sleep apnea (adult) (pediatric); Z86.73 Personal history of transient ischemic attack (TIA), and cerebral infarction without residual deficits; Z87.891 Personal history of nicotine dependence; I50.810 Right heart failure, unspecified

== ENCOUNTER 2017-07-05 17:39 | Inpatient (IN) | payer MEDICARE, MEDICAID ==
[~2017-07-05] VITALS: Ht 165.1 cm; Wt 109.7 kg
[~2017-07-05 17:39] MED LIST changes: +BETAPACE 120 M120 MG PO; +DEPAKOTE500 MG PO
[2017-07-05 20:10] LABS: BASOPHILS 0.2 % (0-2); EOSINOPHILS 1.5 % (0-7); HEMATOCRIT 40.4 % (36.0-48.0); HEMOGLOBIN 12.7 g/dL (12-16); LYMPHOCYTES 30.5 % (15-50); MCH 29.1 pg (26.0-34.0); MCHC 31.4 g/dL (31.0-37.0); MCV 92.4 fL (80.0-100.0); MEAN PLATELET VOLUME 9.4 fL (7.4-10.4); MONOCYTES 7.4 % (2-11); NEUTROPHILS 59.4 % (40-80); PLATELET COUNT 151 10x3/uL (130-400); RBC 4.37 10x6/uL (4.00-5.40); RDW 15.5 % (11.5-14.5); WBC 5.3 10x3/uL (4.8-10.8)
[2017-07-05 20:27] LABS: ALBUMIN 3.2 g/dL (3.4-5.0); ALKALINE PHOSPHATASE 74 U/L (46-116); ALT (SGPT) 48 U/L (10-68); BILIRUBIN - TOTAL 0.42 mg/dL (0.2-1.3); CALCIUM 8.9 mg/dL (8.5-10.1); CARBON DIOXIDE 38.8 mmol/L (21.0-32.0); CHLORIDE - SERUM 100 mmol/L (98-107); CREATININE - SERUM 0.7 mg/dL (0.6-1.3); PROTEIN - SERUM 6.9 g/dL (6.4-8.2); SODIUM 143 mmol/L (136-145); UREA NITROGEN 11 mg/dL (7-18); eGFR NON AFRICAN AMERICAN > 90 mL/min (90-120)
[2017-07-05 20:34] LABS: PRO BNP 175 pg/mL (0-125)
[2017-07-05 20:39] LABS: CALC OSMOLALITY 285 mosm/kg (275-300); GLUCOSE 142 mg/dL (74-106); TROPONIN-I < 0.017 ng/mL (0.000-0.060)
--- NOTE | 2017-07-05 23:10 | NUR ---
REPORT RECEIVED FROM NITA MAY.
--- NOTE | 2017-07-05 23:49 | NUR ---
ARRIVED TO FLOOR VIA WHEELCHAIR, ACCOMPANIED BY HOSPITAL STAFF. CALL LIGHT IN REACH. ORIENTED TO UNIT. PLACED ON TELEMETRY. WILL CONTINUE TO MONITOR. SEE NURSE ASSESSMENT.
[2017-07-06 03:54] VITALS: BMI 42.2
[2017-07-06 04:00] VITALS: BP 123/63
--- NOTE | 2017-07-06 05:32 | NUR ---
BUMPER STRAIGHTENER AT BEDSIDE TO OBTAIN VITALS, WILL CONTINUE WITH PLAN OF CARE. CALL LIGHT IN REACH.
[2017-07-06 08:54] VITALS: BP 125/63
[2017-07-06 10:28] VITALS: Ht 165.1 cm; Wt 109.7 kg
[2017-07-06 12:55] VITALS: BP 125/60
[2017-07-06 21:58] VITALS: BP 111/66
--- NOTE | 2017-07-07 02:07 | NUR ---
CALL LIGHT IN REACH, WILL CONTINUE WITH PLAN OF CARE.
[2017-07-07 02:20] VITALS: BP 85/51
--- NOTE | 2017-07-07 05:12 | NUR ---
PATIENT HAS A CRITICAL CO2 OF 86.3, DR HENRY WAS NOTIFIED BY GEOVANNA MAY AND HE TOLD HER THAT THE PATIENT MUST WEAR BI-PAP. I PAGED JEAN KELLEY APRN AT [phone] TO GET AN ORDER FOR A PRN ANXIETY MEDICATION TO HELP THE PATIENT WEAR THE BI-PAP. WAITING FOR A CALL BACK FROM JEAN.
--- NOTE | 2017-07-07 05:17 | NUR ---
JEAN KELLEY APRN CALLED ME BACK AND SAID NO TO ANXIETY MEDICATION TO HELP WITH WEARING BI-PAP. WILL ENCOURAGE PATIENT TO WEAR BI-PAP.
[2017-07-07 05:18] VITALS: BP 114/49
[2017-07-07 06:26] LABS: BASOPHILS 0.1 % (0-2); EOSINOPHILS 0.8 % (0-7); HEMATOCRIT 38.5 % (36.0-48.0); HEMOGLOBIN 11.7 g/dL (12-16); IMMATURE GRANULOCYTES 0.7 % (0-5); LYMPHOCYTES 37.6 % (15-50); MCH 28.4 pg (26.0-34.0); MCHC 30.4 g/dL (31.0-37.0); MCV 93.4 fL (80.0-100.0); MEAN PLATELET VOLUME 9.1 fL (7.4-10.4); MONOCYTES 5.9 % (2-11); NEUTROPHILS 54.9 % (40-80); PLATELET COUNT 135 10x3/uL (130-400); RBC 4.12 10x6/uL (4.00-5.40); RDW 15.8 % (11.5-14.5)
[2017-07-07 06:39] LABS: CALC OSMOLALITY 284 mosm/kg (275-300); CHLORIDE - SERUM 96 mmol/L (98-107); CREATININE - SERUM 0.8 mg/dL (0.6-1.3); GLUCOSE 196 mg/dL (74-106); MAGNESIUM - SERUM 1.7 mg/dL (1.8-2.4); PHOSPHOROUS 4.5 mg/dL (2.5-4.9); POTASSIUM - SERUM 3.2 mmol/L (3.5-5.1); SODIUM 140 mmol/L (136-145); UREA NITROGEN 14 mg/dL (7-18); eGFR NON AFRICAN AMERICAN 78 mL/min (90-120)
[2017-07-07 06:41] LABS: CARBON DIOXIDE 41.6 mmol/L (21.0-32.0)
[2017-07-07 06:49] LABS: WBC 7.3 10x3/uL (4.8-10.8)
[2017-07-07 08:38] VITALS: BP 101/55
--- NOTE | 2017-07-07 08:45 | NUR ---
UP SOB EATING BRK. NO NEEDS INDICATED. CALL LIGHT IN REACH. WILL CONT. PLAN OF CARE.
[2017-07-07 12:00] VITALS: BP 107/61
--- NOTE | 2017-07-07 14:53 | NUR ---
ASSESSMENT COMPLETED. DENIES ANY NEEDS. RIGHT HAND SL. TELEMERTY SHOWS SR SR UP WITH CALL LIGHT ON. WILL MONITOR
[2017-07-07 16:40] VITALS: BP 130/70
--- NOTE | 2017-07-07 19:17 | NUR ---
PT IS RESTING IN BED WITH EYES OPEN. WATCHING TV. ALERT AND ORIENTED X 3. DENIES ANY PAIN OR DISCOMFORT AT THIS TIME. TELEMETRY UNIT IS ON AND INTACT. 02 IS ON @ 4LPM PER NC. NO SOB NOTED. SR'S ARE UP X 2 IN BED. CALL LIGHT AND BEDSIDE TABLE ARE WITHIN EASY REACH.
[2017-07-07 22:40] VITALS: BP 115/56
--- NOTE | 2017-07-07 23:08 | NUR ---
BI PAP PLACED ON PT AT THIS TIME BY RESP. TECH.
--- NOTE | 2017-07-07 23:55 | NUR ---
PT IN BED RESTING QUIETLY. BREATHING EVEN AND UNLABORED. WILL CPOC.
--- NOTE | 2017-07-08 03:04 | NUR ---
RESTING IN BED WITH EYES CLOSED.
--- NOTE | 2017-07-08 06:15 | NUR ---
RESTING IN BED WITH EYES OPEN. NO ACUTE DISTRESS NOTED.
[2017-07-08 06:37] VITALS: BP 110/56
[2017-07-08 06:51] LABS: BASOPHILS 0 % (0-2); EOSINOPHILS 0 % (0-7); HEMATOCRIT 37.9 % (36.0-48.0); HEMOGLOBIN 11.9 g/dL (12-16); IMMATURE GRANULOCYTES 0.6 % (0-5); LYMPHOCYTES 22.1 % (15-50); MCH 28.8 pg (26.0-34.0); MCHC 31.4 g/dL (31.0-37.0); MCV 91.8 fL (80.0-100.0); MEAN PLATELET VOLUME 9.2 fL (7.4-10.4); MONOCYTES 4.2 % (2-11); NEUTROPHILS 73.1 % (40-80); PLATELET COUNT 145 10x3/uL (130-400); RBC 4.13 10x6/uL (4.00-5.40); RDW 15.3 % (11.5-14.5); WBC 6.7 10x3/uL (4.8-10.8)
[2017-07-08 07:00] LABS: CALC OSMOLALITY 287 mosm/kg (275-300); CALCIUM 8.7 mg/dL (8.5-10.1); CARBON DIOXIDE 39.3 mmol/L (21.0-32.0); CHLORIDE - SERUM 97 mmol/L (98-107); CREATININE - SERUM 0.8 mg/dL (0.6-1.3); GLUCOSE 199 mg/dL (74-106); SODIUM 141 mmol/L (136-145); UREA NITROGEN 14 mg/dL (7-18); eGFR NON AFRICAN AMERICAN 78 mL/min (90-120)
[2017-07-08 07:01] LABS: POTASSIUM - SERUM 4.3 mmol/L (3.5-5.1)
--- NOTE | 2017-07-08 07:34 | NUR ---
AM ROUNDING- RECEIVED REPORT FROM DATA DEVELOPER NURSE STEPHANIE. PT IS CURRENTLY SITTING UP IN BED WITH EYES CLOSED RESTING. ON 02 AT 4L VIA NC. ON MONITOR SHOWING SR, HR 73. IV SEEN TO RIGHT HAND THAT IS CURRENTLY SALINE LOCKED. NO NEED AT THIS CURRENT TIME. WILL CONTINUE TO MONITOR AND CONTINUE WITH PLAN OF CARE.
[2017-07-08 08:00] VITALS: BP 120/59
--- NOTE | 2017-07-08 10:37 | NUR ---
UPON DOING AM MEDICATIONS, PTS IV IS INFILATRATED. THIS NURSE ATTEMPTED TO SITE PT WITH 22G IV CATHETER X4 STICKS THAT WAS NOT SUCCESSFUL. DERRICK, CHARGE NURSE AWARE AND STATES SHE WILL ATTEMPT TO RESITE PT. WILL CONTINUE TO MONITOR.
--- NOTE | 2017-07-08 11:32 | NUR ---
LALO VIRK SITED PT WITH 22G IV TO RIGHT WRIST AREA.
[2017-07-08 12:00] VITALS: BP 97/62
[2017-07-08 16:00] VITALS: BP 112/65
--- NOTE | 2017-07-08 18:04 | NUR ---
PT IS CURRENTLY SITTING UP ON SIDE OF BED EATING DINNER. PT DENIES ANY NEED AT THIS TIME. WILL CONTINUE TO MONITOR.
--- NOTE | 2017-07-08 20:06 | NUR ---
RESUMED CARE OF PT, LYING IN BED RESPIRATIONS EVEN AND UNLABORED ON 4LPM VIA NC. 78 SR ON TELEMETRY. RIGHT HAND INFUSING NS @ KVO. NO NEEDS AT THIS TIME, CALL LIGHT IN REACH. SEE NURSE ASSESSMENT. WILL CONTINUE TO MONTIOR.
[2017-07-08 21:07] VITALS: BP 122/54
[2017-07-09 00:42] VITALS: BP 119/62
--- NOTE | 2017-07-09 03:28 | NUR ---
LYING IN BED WITH EYES CLOSED, CALL LIGHT IN REACH. WILL CONTINUE TO MONITOR.
[2017-07-09 04:46] VITALS: BP 118/67
[2017-07-09 06:24] LABS: BASOPHILS 0 % (0-2); EOSINOPHILS 0 % (0-7); HEMATOCRIT 40.3 % (36.0-48.0); HEMOGLOBIN 12.6 g/dL (12-16); IMMATURE GRANULOCYTES 0.9 % (0-5); MCHC 31.3 g/dL (31.0-37.0); MCV 92.6 fL (80.0-100.0); MONOCYTES 5.1 % (2-11); PLATELET COUNT 144 10x3/uL (130-400); RBC 4.35 10x6/uL (4.00-5.40); RDW 15.4 % (11.5-14.5); WBC 6.4 10x3/uL (4.8-10.8)
--- NOTE | 2017-07-09 06:27 | NUR ---
NO CHANGES FROM PREVIOUS ASSESSMENT, CALL LIGHT IN REACH.
[2017-07-09 06:45] LABS: CALC OSMOLALITY 283 mosm/kg (275-300); CALCIUM 9.3 mg/dL (8.5-10.1); CHLORIDE - SERUM 96 mmol/L (98-107); CREATININE - SERUM 0.7 mg/dL (0.6-1.3); GLUCOSE 193 mg/dL (74-106); POTASSIUM - SERUM 4.2 mmol/L (3.5-5.1); SODIUM 139 mmol/L (136-145); UREA NITROGEN 14 mg/dL (7-18); eGFR NON AFRICAN AMERICAN > 90 mL/min (90-120)
[2017-07-09 06:47] LABS: CARBON DIOXIDE 42.3 mmol/L (21.0-32.0)
--- NOTE | 2017-07-09 07:20 | NUR ---
ASSESSMENT COMPLETED. TELEMERTY SHOWS SB 58. O2 AT 4 L/M PER NC. RIGHT WRIST IV WITH NS AT KVO. DENIES ANY NEEDS. CALL LIGHT IN REACH WITH SR UP.WILL MONITOR
[2017-07-09 08:00] VITALS: BP 117/66
--- NOTE | 2017-07-09 08:07 | NUR ---
AWAKE AND ALERT EATING BREAKFAST NAD NOTED
[2017-07-09 12:00] VITALS: BP 121/72
--- NOTE | 2017-07-09 14:31 | NUR ---
LYING QUIETLY, EYES CLOSED.DENIES ANY NEEDS. CALL LIGHT IN REACH WITH SR UP.
[2017-07-09 16:00] VITALS: BP 118/65
--- NOTE | 2017-07-09 17:58 | NUR ---
UP T0 BATH ROOM. GAIT STEADY. DENIES ANY NEEDS.WILL MONITOR
--- NOTE | 2017-07-09 19:30 | NUR ---
RESUMED CARE OF PT, LYING IN BED RESPIRATIONS EVEN AND UNLABORED ON 4LPM VIA NC. 85 SR ON TELEMETRY. RIGHT WRIST INFUSING NS @ KVO. NO NEEDS AT THIS TIME, CALL LIGHT IN REACH. WILL CONTINUE TO MONITOR. SEE NURSE ASSESSMENT.
[2017-07-09 20:16] VITALS: BP 110/69
--- NOTE | 2017-07-09 23:08 | NUR ---
IV ACCIDENTALLY REMOVED BY PT, CAUGHT UP IN TUBING ON WAY TO BATHROOM. TIP INTACT. CALL LIGHT IN REACH. WILL CONTINUE TO MONITOR.
[2017-07-10 00:31] VITALS: BP 106/55
--- NOTE | 2017-07-10 04:48 | NUR ---
OFFERED TWICE TO GIVE A BATH. REFUSED BOTH TIMES, WILL CONTINUE TO MONITOR.
[2017-07-10 05:17] LABS: BASOPHILS 0.1 % (0-2); EOSINOPHILS 0.4 % (0-7); HEMATOCRIT 41.2 % (36.0-48.0); HEMOGLOBIN 12.7 g/dL (12-16); LYMPHOCYTES 40.4 % (15-50); MCH 29.1 pg (26.0-34.0); MCHC 30.8 g/dL (31.0-37.0); MCV 94.3 fL (80.0-100.0); MEAN PLATELET VOLUME 8.9 fL (7.4-10.4); MONOCYTES 9.1 % (2-11); PLATELET COUNT 125 10x3/uL (130-400); RBC 4.37 10x6/uL (4.00-5.40); RDW 15.2 % (11.5-14.5)
[2017-07-10 05:21] VITALS: BP 95/55
[2017-07-10 05:42] LABS: CALCIUM 8.8 mg/dL (8.5-10.1); CHLORIDE - SERUM 96 mmol/L (98-107); CREATININE - SERUM 0.7 mg/dL (0.6-1.3); POTASSIUM - SERUM 4.2 mmol/L (3.5-5.1); SODIUM 143 mmol/L (136-145); eGFR NON AFRICAN AMERICAN > 90 mL/min (90-120)
[2017-07-10 05:44] LABS: CALC OSMOLALITY 288 mosm/kg (275-300); GLUCOSE 135 mg/dL (74-106); UREA NITROGEN 19 mg/dL (7-18)
--- NOTE | 2017-07-10 07:30 | NUR ---
PLACED PATIENT ON BIPAP PER ORDER. 05/03 30%.
[2017-07-10 08:00] VITALS: BP 104/66
--- NOTE | 2017-07-10 11:12 | NUR ---
BACK FROM SOAP PRESS FEEDER. B/P 133/88 RESP 18, HR 94 AND O2 SAT AT 97% O2 L/M PER NC RIGHT GROIN SOFT WITH DRSG DRY AND INTACT. PPP. FAMILY AT BEDSIDE. WILL MONITOR
[2017-07-10] MEDS ORDERED: MUCINEX DM ER1 EAC1 PO (11:15)
[2017-07-10] MEDS ORDERED: OMNICEF300 MG PO (11:17)
[2017-07-10] MEDS ORDERED: PREDNISONE10 MG PO (11:17)
--- NOTE | 2017-07-10 11:52 | NUR ---
PT SITTING UP IN BED RESTING QUIETLY. RR NONLABORED. PT DENIES ANY CURRENT PAIN OR NEEDS. CL IN REACH, BED IN LOWEST, SIDE RAILS X2. WILL CPOC.
--- NOTE | 2017-07-10 12:00 | NUR ---
PLACED PATIENT BACK ON BIPAP. PATIENT AROUSES TO STIMULI BUT APPEARS LETHARGIC. 16/7, 30%. SP02 90%, RR 16. WILL CONT TO MONITOR.
--- NOTE | 2017-07-10 13:15 | NUR ---
LYING QUIETLY. AWAITING DISCHARGE. NO NEEDS VOICED
--- NOTE | 2017-07-10 13:46 | NUR ---
Patient Name: AMBER MILLER Admission Status: ER Accout number: [id number] Admission Date: 07-05-2017 : 1960 Admission Diagnosis: Attending: DEVIN GIBSON Current LOS: 5 Anticipated DC Date: 07-10-2017 Planned Disposition: Home with Home Health Primary Insurance: [employer] CHOICE PPO MCR [employer]ANT PLANNED EXTERNAL PROVIDER: [facility] Discharge Planning Comments: * Is the patient Alert and Oriented? Yes 0 * How many steps to enter\exit or inside your home? 3 W/RAILS 0 * PCP DR. DEL REAL 0 * [facility]acy [facility] 0 * Preadmission Environment Home with Family 0 * ADLs Independent 0 * Equipment Oxygen Shower Chair Walker 0 * Other Equipment HOME AND PORTABLE OXYGEN [facility]QUIP[facility] PROVIDER 0 * List name and contact numbers for known caregivers / representatives who currently or will assist patient after discharge: RITA ANGELA CARDONA, DTR, 0 * Community resources currently utilized Home Health 0 * Please name any agencies selected above. [facility], 0 * Additional services required to return to the preadmission environment? No 0 * Can the patient safely return to the preadmission environment? Yes 0 * Has this patient been hospitalized within the prior 30 days at any hospital? No 0 CM MET WITH PT IN ROOM TO DISCUSS DISCHARGE PLANNING AND NEEDS. PT REPORTS LIVING AT HOME INDEPENDENTLY WITH HER ADULT DAUGHTER. PT REPORTS HAVING ALL NEEDED MEDICAL EQUIPMENT FROM [facility] (NURSING AND PHYSICAL THERAPY) WITH [facility]. CM DISCUSSED AVAILABILITY OF HOME HEALTH, REHAB SERVICES AND MEDICAL EQUIPMENT. PT DENIES DISCHARGE NEEDS OTHER THAN HER HOME HEALTH TO RESUME, REPORTS HER DAUGHTER OR SON IN LAW WILL PICK HER UP FOR DISCHARGE HOME. IMPORTANT MESSAGE FROM MEDICARE PROVIDED AND EXPLAINED. CM CALLED [facility], , SPOKE TO ADELA WHO WILL PLACE PT BACK ON RESUMPTION SCHEDULE FOR HOME HEALTH TOMORROW. CM FAXED DISCHARGE INFORMATION TO [facility] AT [phone]. [employer] E[employer] OPERATOR NURSE NOTIFIED. Cement Production Plant Operator: Alirzea Recio
--- NOTE | 2017-07-10 17:50 | NUR ---
DISCHARGED. TO PRIVATE CAR PER WHEEL CHAIR
== END 2017-07-10 17:51 | disposition home health service (06) | DRG 177 ==
LOC: D.ER 17:39 → D.M2 21:28
PROVIDERS: Emergency Medicine; ADMIT Emergency Medicine
PROC: 5A09357 Assistance with Respiratory Ventilation, Less than 24 Consecutive Hours, Continuous Positive Airway Pressure (ICD-10-PCS; principal; 2017-07-05)
DX: J15.6 Pneumonia due to other Gram-negative bacteria (principal); J96.22 Acute and chronic respiratory failure with hypercapnia; J96.21 Acute and chronic respiratory failure with hypoxia; I50.33 Acute on chronic diastolic (congestive) heart failure; J44.0 Chronic obstructive pulmonary disease with (acute) lower respiratory infection; J44.1 Chronic obstructive pulmonary disease with (acute) exacerbation; J13 Pneumonia due to Streptococcus pneumoniae; E03.9 Hypothyroidism, unspecified; F31.9 Bipolar disorder, unspecified; Z99.81 Dependence on supplemental oxygen; E11.9 Type 2 diabetes mellitus without complications; I25.10 Atherosclerotic heart disease of native coronary artery without angina pectoris; J30.9 Allergic rhinitis, unspecified; I27.20 Pulmonary hypertension, unspecified; G47.33 Obstructive sleep apnea (adult) (pediatric); Z91.19 Patient's noncompliance with other medical treatment and regimen; K21.9 Gastro-esophageal reflux disease without esophagitis; Z95.5 Presence of coronary angioplasty implant and graft; Z86.73 Personal history of transient ischemic attack (TIA), and cerebral infarction without residual deficits; Z87.891 Personal history of nicotine dependence

== ENCOUNTER 2017-08-24 10:44 | Inpatient (IN) | payer MEDICARE, MEDICAID ==
[~2017-08-24] VITALS: Ht 165.1 cm; Wt 113.9 kg
--- NOTE | ~2017-08-24 | EC ---
PATIENT:AMBER MILLER DATE OF SERVICE: 08/24/17 SEX: F MEDICAL RECORD: [id number] DATE OF : [birth year] LOCATION:D.M2 D.213 AGE OF PATIENT: 57 ADMISSION DATE: 08/24/17 REFERRING PHYSICIAN: INTERPRETING PHYSICIAN: RUBEN CONNER MD ECHOCARDIOGRAM REPORT ECHO CHARGES 4 ECHO COMPLETE CLINICAL DIAGNOSIS: SVT ECHOCARDIOGRAPHIC MEASUREMENTS (adult normal given) AC root (d.<3.7cm) 4.1 cm LV Septum d (<1.2 cm> 1.6 cm Valve Excursion 1.6 cm LV Septum (systole) 1.8 cm Left Atria (s.<4.0cm> 3.8 cm LVPW d(<1.2cm) 1.6 cm RV (d.<2.3cm) 3.7 cm LVPW (sytole) 1.8 cm LV diastole(<5.6CM) 4.0 cm MV E-F(>70mm/sec) cm LV systole 2.4 cm LVOT Diameter 1.7 cm MV exc.(>10mm) 1.4 cm Est.ejection fraction (50-75%) % Pericardial Effusion N DOPPLER: LVIT cm/sec A 68.0 cm/sec E 92.0 cm/sec LA cm/sec RVSP 59 mmHg LVOT 105 cm/sec AOP1/2T m/s Asc. Ao 159 cm/sec RVOT 106 cm/sec RA cm/sec PA 143 cm/sec AV Gradient Peak 10.17mmHg AV Mean 5.73 mmHg AV Area 1.7 cm MV Gradient Peak 4.16 mmHg MV Mean 1.60 mmHg MV Area cm COMMENTS: Product Expert: Vega CORTEZ Personnel And Payroll Technician: Raven Conner TAPE# PACS DATE OF SERVICE: 08/25/2017 PROCEDURE: Transthoracic echocardiogram. FINDINGS: 1. This is a very difficult echo. Endocardial surfaces were not well visualized. 2. Left ventricle shows hyperdynamic anterior and septal function. The overall motion appears to be fairly normal; however, the posterior wall is not well visualized. The estimated ejection fraction is 55+ percent. Inflow ECHOCARDIOGRAM REPORT [id number] AMBER MILLER characteristics into the left ventricle are normal. 3. The left atrium is grossly normal size. 4. The mitral valve not well visualized, but grossly normal. 5. The tricuspid valve has [id number] tricuspid regurgitation, is not well visualized. Estimated PA pressures appear to be elevated. Again, the envelopes were not well seen. It is possible that the right ventricular systolic pressures are elevated in the mild to moderate range, again difficult to say with any definitiveness. Overall grossly this is a fairly normal echocardiogram with suggestions of dilatation of the right-sided chambers with suggestions of possible pulmonary hypertension at least in the mild to moderate range and overall normal LV systolic function. TRANSINT:[id number] Voice Confirmation ID: [id number] DOCUMENT ID: [id number] 09/04/2017 Edited to correct date of service, dmm. RUBEN CONNER MD at 1038 CC: [id number] DICTATION DATE: 08/29/17 0956 SUPERVISOR FORMING DEPARTMENT: 08/29/17 1052 DIS IN 08/27/17 [facility] [address] [place] [address]
--- NOTE | ~2017-08-24 | CN ---
PATIENT NAME:AMBER MILLER MEDICAL RECORD: [id number] : 56 LOCATION:D.Shyann D.2139 ADMIT DATE: 08/24/17 ACCOUNT: [id number] CONSULTING PHYSICIAN: AMARA MULLINS MD REFERRING PHYSICIAN: ERROL DONOVAN MD DATE OF CONSULTATION: 08/25/2017 HISTORY OF PRESENT ILLNESS: A 57-year-old female with a history of severe obstructive pulmonary disease, resultant pulmonary hypertension, admitted with shortness of breath, dyspnea also found to be in atrial flutter 2:1, converted with 1 dose of Cardizem IV. She has had intermittent atrial flutter. These really exacerbate at times with obstructive pulmonary disease exacerbations, has been on CPAP in the past, continued smoker. We are asked to see her concerning her cardiovascular status. PAST MEDICAL HISTORY: Includes: 1. History of obstructive sleep apnea. 2. Pulmonary hypertension. 3. Obstructive pulmonary disease. 4. Hypertension. 5. Dyslipidemia. 6. Bipolar disorder. MEDICATIONS: Include: 1. Protonix 20 mg p.o. day. 2. Singulair 10 q.h.s. 3. Lasix 20 day. 4. Potassium 10 mEq day. 5. Ativan 2 mg t.i.d. 6. Headland 10/325 every day. 7. Depakote 1 gram q.h.s. 8. Zoloft 50 every day. 9. Abilify 15 mg p.o. every day. 10. Sotalol 120 b.i.d. 11. Pravastatin 40 q.h.s. 12. Proventil q.12 hours. 13. DuoNeb q.4 hours p.r.n. ALLERGIES: None known. SOCIAL HISTORY: She is a nondrinker, no illicit drug use. Continues to smoke, does have some problems with ADLs due to general debility. REVIEW OF SYSTEMS: The patient reports easy bruising but reports no swollen glands. The patient reports no fever, no night sweats, no significant weight gain, no significant weight loss. No significant exercise tolerance. The patient reports no dry eyes, no irritation, no vision change. Patient reports no difficulty hearing and no ear pain. Patient reports no frequent nose bleeds or nose and sinus problems. Patient reports on arm pain on exertion. No shortness of breath while lying down. No history of heart murmur. Patient reports no cough, no wheezing or coughing up blood. Patient reports no abdominal pain, no vomiting. Normal appetite. No diarrhea and not vomiting blood. No nausea and no constipation. Patient reports no incontinence. No difficulty urinating. No hematuria. No increased frequency. Patient reports no muscle aches. No weakness, no arthralgias, no back pain. No swelling of the CONSULT REPORT [id number] AMBER MILLER extremities. Patient reports no abnormal mole, no jaundice, no rashes. Reports no loss of consciousness. No weakness and no numbness. No seizures, dizziness, or headaches. The patient reports no depression, no sleep disturbance, feeling safe in a relationship and no alcohol abuse. Patient reports on fatigue. Reports no runny nose or sinus pressure. No itching, no hives, and no frequent sneezing. PHYSICAL EXAMINATION: GENERAL: Middle-aged female in no acute distress. VITAL SIGNS: Blood pressure 140/70, pulse 87 and regular. HEENT: Normocephalic, atraumatic. NECK: No bruits noted. HEART: Regular, II/ systolic ejection murmur. LUNGS: Fair air excursion and short expiratory wheezes noted. ABDOMEN: Soft, nontender. EXTREMITIES: 1+ edema. Pulses are intact. NEUROLOGIC: Grossly intact. DIAGNOSTIC DATA: ECG at baseline post-cardioversion is normal with occasional PACs. IMPRESSION: Atrial flutter, probably combination of hypokalemia and recent exacerbation of COPD. At this point, we will add digoxin to her medical regime, also Aldactone which should help with the edema as well as have potassium sparing effects. Echocardiogram study has been ordered. TRANSINT:[id number] Voice Confirmation ID: [id number] DOCUMENT ID: [id number] AMARA UMLLINS MD at 1210 CC: [id number] DICTATION DATE: 08/25/17 0844 CHARGE HAND: 08/25/17 1047 ADM IN [place] [id number] [place] [address]
[~2017-08-24 10:44] MED LIST changes: +OMNICEF300 MG PO
[2017-08-24 11:29] LABS: BASOPHILS 0.2 % (0-2); EOSINOPHILS 1.9 % (0-7); HEMATOCRIT 42.9 % (36.0-48.0); HEMOGLOBIN 13.5 g/dL (12-16); IMMATURE GRANULOCYTES 0.2 % (0-5); LYMPHOCYTES 33.7 % (15-50); MCH 28.8 pg (26.0-34.0); MCHC 31.5 g/dL (31.0-37.0); MCV 91.7 fL (80.0-100.0); MEAN PLATELET VOLUME 9.6 fL (7.4-10.4); MONOCYTES 5.6 % (2-11); NEUTROPHILS 58.4 % (40-80); RBC 4.68 10x6/uL (4.00-5.40); RDW 15.3 % (11.5-14.5); WBC 5.7 10x3/uL (4.8-10.8)
[2017-08-24 11:30] LABS: PLATELET COUNT 157 10x3/uL (130-400)
[2017-08-24 11:50] LABS: ALBUMIN 2.6 g/dL (3.4-5.0); ALKALINE PHOSPHATASE 68 U/L (46-116); ALT (SGPT) 49 U/L (10-68); CALC OSMOLALITY 285 mosm/kg (275-300); CALCIUM 8.9 mg/dL (8.5-10.1); CHLORIDE - SERUM 102 mmol/L (98-107); CREATININE - SERUM 0.7 mg/dL (0.6-1.3); GLUCOSE 104 mg/dL (74-106); POTASSIUM - SERUM 3.4 mmol/L (3.5-5.1); PROTEIN - SERUM 6.5 g/dL (6.4-8.2); SODIUM 144 mmol/L (136-145); UREA NITROGEN 9 mg/dL (7-18); eGFR NON AFRICAN AMERICAN > 90 mL/min (90-120)
[2017-08-24 11:53] LABS: CREATINE KINASE 28 UL (21-215); TROPONIN-I < 0.017 ng/mL (0.000-0.060)
[2017-08-24 15:38] VITALS: BP 113/64; BMI 39.6
[2017-08-24] MEDS ORDERED: ATIVAN2 MG PO (15:38)
[2017-08-24 16:02] VITALS: BP 113/64
[2017-08-24 22:00] VITALS: BP 105/57
[2017-08-25 04:28] LABS: APPEARANCE CLEAR (CLEAR); BILIRUBIN NEGATIVE (NEGATIVE); COLOR YELLOW (YELLOW); GLUCOSE NEGATIVE (NEGATIVE); KETONE NEGATIVE (NEGATIVE); NITRITE NEGATIVE (NEGATIVE); PROTEIN NEGATIVE (NEGATIVE); SPECIFIC GRAVITY 1.015 (1.005-1.020); UROBILINOGEN NORMAL (NORMAL)
[2017-08-25 05:57] LABS: BASOPHILS 0.2 % (0-2); EOSINOPHILS 2.5 % (0-7); HEMATOCRIT 40.1 % (36.0-48.0); HEMOGLOBIN 12.2 g/dL (12-16); IMMATURE GRANULOCYTES 0.2 % (0-5); LYMPHOCYTES 39.1 % (15-50); MCH 28.4 pg (26.0-34.0); MCHC 30.4 g/dL (31.0-37.0); MCV 93.5 fL (80.0-100.0); MEAN PLATELET VOLUME 9.7 fL (7.4-10.4); MONOCYTES 7.7 % (2-11); NEUTROPHILS 50.3 % (40-80); PLATELET COUNT 146 10x3/uL (130-400); RBC 4.29 10x6/uL (4.00-5.40); RDW 15.4 % (11.5-14.5)
[2017-08-25 06:45] VITALS: BP 121/67
[2017-08-25 06:51] LABS: ALBUMIN 2.6 g/dL (3.4-5.0); CALC OSMOLALITY 290 mosm/kg (275-300); CALCIUM 8.4 mg/dL (8.5-10.1); CARBON DIOXIDE 39.1 mmol/L (21.0-32.0); CHLORIDE - SERUM 104 mmol/L (98-107); CREATININE - SERUM 0.7 mg/dL (0.6-1.3); GLUCOSE 147 mg/dL (74-106); MAGNESIUM - SERUM 1.9 mg/dL (1.8-2.4); POTASSIUM - SERUM 3.2 mmol/L (3.5-5.1); SODIUM 145 mmol/L (136-145); UREA NITROGEN 10 mg/dL (7-18); eGFR NON AFRICAN AMERICAN > 90 mL/min (90-120)
[2017-08-25 07:18] LABS: ALKALINE PHOSPHATASE 61 U/L (46-116); ALT (SGPT) 51 U/L (10-68); BILIRUBIN - TOTAL 0.36 mg/dL (0.2-1.3); PROTEIN - SERUM 5.7 g/dL (6.4-8.2); T4 THYROXIN - FREE 1.19 ng/dL (0.76-1.46); THYROID STIMULATING HORMONE 2.05 uIU/mL (0.36-3.74)
[2017-08-25 08:28] VITALS: BP 142/70
[2017-08-25 09:47] VITALS: Ht 165.1 cm; Wt 113.9 kg
[2017-08-25] MEDS ORDERED: STERAPRED DS 1210 MG PO (10:44)
[2017-08-25 12:48] VITALS: BP 116/70
[2017-08-25 16:09] VITALS: BP 117/69
[2017-08-25 23:00] VITALS: BP 112/79
[2017-08-26 06:23] VITALS: BP 120/70
[2017-08-26 06:50] LABS: BASOPHILS 0.2 % (0-2); EOSINOPHILS 3.1 % (0-7); HEMATOCRIT 39.5 % (36.0-48.0); IMMATURE GRANULOCYTES 0.2 % (0-5); LYMPHOCYTES 46.1 % (15-50); MCH 28.6 pg (26.0-34.0); MCHC 30.4 g/dL (31.0-37.0); MCV 94.3 fL (80.0-100.0); MEAN PLATELET VOLUME 9.9 fL (7.4-10.4); MONOCYTES 6.9 % (2-11); NEUTROPHILS 43.5 % (40-80); PLATELET COUNT 149 10x3/uL (130-400); RBC 4.19 10x6/uL (4.00-5.40); WBC 4.5 10x3/uL (4.8-10.8)
[2017-08-26 07:01] LABS: CALC OSMOLALITY 286 mosm/kg (275-300); CALCIUM 8.7 mg/dL (8.5-10.1); CHLORIDE - SERUM 103 mmol/L (98-107); CREATININE - SERUM 0.6 mg/dL (0.6-1.3); GLUCOSE 105 mg/dL (74-106); POTASSIUM - SERUM 4.1 mmol/L (3.5-5.1); SODIUM 145 mmol/L (136-145); UREA NITROGEN 7 mg/dL (7-18); eGFR NON AFRICAN AMERICAN > 90 mL/min (90-120)
[2017-08-26 07:02] LABS: CARBON DIOXIDE 40.4 mmol/L (21.0-32.0)
[2017-08-26 08:00] VITALS: BP 98/52
[2017-08-26 12:00] VITALS: BP 81/41
[2017-08-26 16:00] VITALS: BP 105/56
[2017-08-26 21:36] VITALS: BP 120/54
[2017-08-27 01:29] VITALS: BP 104/55
[2017-08-27] MEDS ORDERED: ELIQUIS5 MG PO (09:05)
[2017-08-27] MEDS ORDERED: ALDACTONE25 MG PO (09:06)
[2017-08-27] MEDS ORDERED: LANOXIN125 MCG PO (09:06)
[2017-08-27 10:22] VITALS: BP 115/54
[2017-08-27 13:42] VITALS: BP 119/65
[2017-08-27 16:35] VITALS: BP 110/61
[2017-09-02 19:08] LABS: AEROBE ID Final report (())
== END 2017-08-27 17:42 | disposition home or self-care (01) | DRG 308 ==
LOC: D.ER 10:44 → D.M2 14:21 → D.SDCHOLD 08-25 14:42 → D.M2 08-27 17:42
PROVIDERS: Emergency Medicine; Internal Medicine Nephrology
DX: I47.1 Supraventricular tachycardia (principal); I50.31 Acute diastolic (congestive) heart failure; J44.1 Chronic obstructive pulmonary disease with (acute) exacerbation; J98.11 Atelectasis; I27.20 Pulmonary hypertension, unspecified; I48.92 Unspecified atrial flutter; G47.33 Obstructive sleep apnea (adult) (pediatric); E87.6 Hypokalemia; I08.1 Rheumatic disorders of both mitral and tricuspid valves; K21.9 Gastro-esophageal reflux disease without esophagitis; I25.10 Atherosclerotic heart disease of native coronary artery without angina pectoris; I11.0 Hypertensive heart disease with heart failure; E78.5 Hyperlipidemia, unspecified; F31.9 Bipolar disorder, unspecified; Z95.5 Presence of coronary angioplasty implant and graft; Z86.73 Personal history of transient ischemic attack (TIA), and cerebral infarction without residual deficits; Z72.0 Tobacco use

== ENCOUNTER 2019-10-27 14:17 | Inpatient (IN) | payer MEDICARE, MEDICAID ==
[2019-10-27] VITALS (7 sets, daily range): BP systolic 115–128; BP diastolic 48–85; BMI 36.7
[~2019-10-27] VITALS: Ht 165.1 cm; Wt 103.0 kg
[~2019-10-27 14:17] MED LIST changes: +ALDACTONE25 MG PO; +ATIVAN2 MG PO; +ELIQUIS5 MG PO; +LANOXIN125 MCG PO; +STERAPRED DS 1210 MG PO
[2019-10-27 15:03] LABS: BASOPHILS 0.2 % (0-2); EOSINOPHILS 0.4 % (0-7); HEMATOCRIT 36.4 % (36.0-48.0); HEMOGLOBIN 11.7 g/dL (12-16); IMMATURE GRANULOCYTES 0.9 % (0-5); LYMPHOCYTES 13.3 % (15-50); MCH 30.5 pg (26.0-34.0); MCHC 32.1 g/dL (31.0-37.0); MEAN PLATELET VOLUME 10.1 fL (7.4-10.4); MONOCYTES 8.2 % (2-11); RBC 3.83 10x6/uL (4.00-5.40); RDW 13.9 % (11.5-14.5); WBC 5.7 10x3/uL (4.8-10.8)
[2019-10-27 15:06] LABS: PLATELET COUNT 103 10x3/uL (130-400)
[2019-10-27 15:07] LABS: APTT 31.3 SECONDS (22.8-39.4); INR 1.01 (0.85-1.17); PROTIME 13.3 SECONDS (11.6-15.0)
[2019-10-27 15:08] LABS: CALC OSMOLALITY 280 mosm/kg (275-300); CALCIUM 9.5 mg/dL (8.5-10.1); CARBON DIOXIDE 39.9 mmol/L (21.0-32.0); CHLORIDE - SERUM 90 mmol/L (98-107); CREATININE - SERUM 0.8 mg/dL (0.6-1.3); POTASSIUM - SERUM 3.9 mmol/L (3.5-5.1); SODIUM 133 mmol/L (136-145); UREA NITROGEN 10 mg/dL (7-18); eGFR NON AFRICAN AMERICAN 77 mL/min (90-120)
[2019-10-27 15:13] LABS: GLUCOSE 380 mg/dL (74-106)
--- NOTE | 2019-10-27 15:15 | NUR ---
REPORT GIVEN TO Monserrat ARRIAGA RN, UTILIZING SBAR FORMAT AT THIS TIME.
[2019-10-27 15:25] LABS: ALKALINE PHOSPHATASE 77 U/L (30-120); ALT (SGPT) 26 U/L (10-68); CKMB 0.2 U/L (0.0-3.6); CREATINE KINASE 41 UL (21-215); PROTEIN - SERUM 7.3 g/dL (6.4-8.2)
[2019-10-27 15:29] LABS: TROPONIN-I < 0.017 ng/mL (0.000-0.060)
[2019-10-27 16:01] LABS: NITRITE NEGATIVE (NEGATIVE); SPECIFIC GRAVITY 1.005 (1.005-1.020)
[2019-10-27 16:02] LABS: BILIRUBIN NEGATIVE (NEGATIVE); GLUCOSE 1000 mg/dL (NEGATIVE); KETONE MODERATE mg/dL (NEGATIVE); UROBILINOGEN NORMAL (NORMAL)
[2019-10-27 16:39] LABS: DIGOXIN 0.31 ng/mL (0.90-2.00); MAGNESIUM - SERUM 1.3 mg/dL (1.8-2.4); THYROID STIMULATING HORMONE 0.49 uIU/mL (0.36-3.74)
[2019-10-27 16:51] LABS: VALPROIC ACID (DEPAKOTE) 2.9 ug/mL (50.0-100.0)
--- NOTE | 2019-10-27 17:00 | NUR ---
I have reviewed this patient and I concur with the Shift Assessment completed by the Licensed Practical Nurse today this shift.
[2019-10-27 17:06] LABS: % SATURATION 13 % (15-55); IRON 29 ug/dl (35-150); TOTAL IRON BIND CAPACITY 221 ug/dl (260-445); UNSAT IRON BIND CAPACITY 192 ug/dl (150-375)
--- NOTE | 2019-10-27 18:18 | NUR ---
PT LAYING IN BED. NO DISTRESS NOTED. COLOR WNL FOR RACE. FAMILY AT BEDSIDE. VSS. WILL CONTINUE TO MONITOR.
--- NOTE | 2019-10-27 19:03 | NUR ---
PT LAYING IN BED. RESPIRATIONS ARE EVEN AND UNLABORED. NO DISTRES NOTED. COLOR WNL FOR RACE FAMILY AT BEDSIDE. WILL CONTINUE TO MONITOR. REYNOLDS HAS APPROXIMATELY 500 ML URINE IN DRAINAGE BAG. IV PATENT AND INFUSING AT THIS TIME. NO SIGNS OF INFILTRATION NOTED.
--- NOTE | 2019-10-27 20:20 | NUR ---
TO BED LOW AND LOCKED VIA STRETCHER AND X4 ASSIST REYNOLDS TO GRAVITY CALL LIGHT GIVEN TO PT IV TO 125 AND NEEDS SEEN TOO
--- NOTE | 2019-10-27 20:43 | NUR ---
BEEHIVE KILN SUPERVISOR TOLD ME TO HOLD TELEMETRY ON THIS PT TELEMETRY NOT PUT ON PT REFUSED SCD
[2019-10-28 05:04] VITALS: BP 146/63
[2019-10-28 05:17] LABS: BASOPHILS 0 % (0-2); EOSINOPHILS 0 % (0-7); HEMATOCRIT 33.5 % (36.0-48.0); HEMOGLOBIN 10.7 g/dL (12-16); IMMATURE GRANULOCYTES 0.7 % (0-5); MCH 30.2 pg (26.0-34.0); MCHC 31.9 g/dL (31.0-37.0); MCV 94.6 fL (80.0-100.0); MONOCYTES 2.7 % (2-11); NEUTROPHILS 82.6 % (40-80); PLATELET COUNT 105 10x3/uL (130-400); RBC 3.54 10x6/uL (4.00-5.40); RDW 14.1 % (11.5-14.5); WBC 4.5 10x3/uL (4.8-10.8)
[2019-10-28 06:50] LABS: ANION GAP 10.6 mmol/L (8-16); CALCIUM 8.7 mg/dL (8.5-10.1); CARBON DIOXIDE 33.8 mmol/L (21.0-32.0); CREATININE - SERUM 0.9 mg/dL (0.6-1.3); MAGNESIUM - SERUM 1.6 mg/dL (1.8-2.4); POTASSIUM - SERUM 4.4 mmol/L (3.5-5.1)
[2019-10-28 08:34] VITALS: BP 130/75
--- NOTE | 2019-10-28 09:52 | NUR ---
PT WAS RESTING PEACEFULLY WHEN I ENTERED ROOM EARLIER THIS MORNING FOR BEDSIDE. UPON ENTERING LATER TO CHECK ON HER, PT WAS BREATHING HARD, DIAPHORETIC, DIFFICULT TO WAKE UP. SHE WOULD OPEN EYES TO QUESTIONS AND PHYSICAL SHAKES, SOMETIMES ANSWER BUT IMMEDIATELY FALL BACK TO SLEEP QUICKLY. CHECKED BLOOD SUGAR, WAS 555, INFORMED PABLO SONG SHE STATED TO FOLLOW SLDING SCALE AND GIVE A DOSE OF INSULIN, ADMIN 20U. ORDERED ABGS INSTRUCTED. WILL CONT. TO MONITOR. CL INR EACH, SRX2.
--- NOTE | 2019-10-28 11:33 | NUR ---
NIKI REMOVED PER STUDENT AND INSTRUCTOR FOR CRITICAL I/O NOT BEING A GOOD REASON FOR CATHETER. CL INR EACH,SRX2.
[2019-10-28 12:00] VITALS: BP 120/62
--- NOTE | 2019-10-28 12:10 | NUR ---
PT NOW AWAKE AND ORIENTED, NO COMPLAINTS STATES SHE'S FEELING MUCH BETTER TODAY. CL IN REACH, SRX2.
--- NOTE | 2019-10-28 14:04 | NUR ---
I have reviewed this patient and I concur with the Shift Assessment completed by the Licensed Practical Nurse today this shift.
--- NOTE | 2019-10-28 14:13 | NUR ---
PT ASSISTED TO BATHROOM AND BACK. X2, WALKED WELL. ON TOILET. CORD IN REACH, WILL PULL WHEN DONE.
[2019-10-28 15:45] VITALS: BP 109/57
--- NOTE | 2019-10-28 19:05 | NUR ---
AWAKE AND ALERT BED LOW AND CALL LIGHT IS WITH PT NEEDS SEEN TOO AT THIS TIME PT WANTING BED RENAE BUT NOT HELP FROM A MALE
--- NOTE | 2019-10-28 20:34 | NUR ---
LEFT ARM SWOLLEN I BELIEVE IV IS INFILTRATED I REMOVED CATH INTACT AND PUT FLUIDS TO ALTERNATE SITE
[2019-10-28 20:48] VITALS: BP 132/49
[2019-10-29] VITALS (8 sets, daily range): BP systolic 128–175; BP diastolic 57–88; Ht 165.1 cm; Wt 103.0 kg
--- NOTE | 2019-10-29 03:33 | NUR ---
I have reviewed this patient and I concur with the Shift Assessment completed by the Licensed Practical Nurse today this shift.
[2019-10-29 05:08] LABS: CARBON DIOXIDE 36.1 mmol/L (21.0-32.0); CHLORIDE - SERUM 102 mmol/L (98-107); CREATININE - SERUM 0.8 mg/dL (0.6-1.3); MAGNESIUM - SERUM 1.7 mg/dL (1.8-2.4); SODIUM 142 mmol/L (136-145); eGFR NON AFRICAN AMERICAN 77 mL/min (90-120)
[2019-10-29 05:11] LABS: CALC OSMOLALITY 298 mosm/kg (275-300); GLUCOSE 324 mg/dL (74-106); POTASSIUM - SERUM 3.6 mmol/L (3.5-5.1); UREA NITROGEN 22 mg/dL (7-18)
[2019-10-29 05:13] LABS: BASOPHILS 0 % (0-2); EOSINOPHILS 0 % (0-7); HEMATOCRIT 35.3 % (36.0-48.0); HEMOGLOBIN 11.3 g/dL (12-16); IMMATURE GRANULOCYTES 1.1 % (0-5); LYMPHOCYTES 16.2 % (15-50); MCH 30.2 pg (26.0-34.0); MCV 94.4 fL (80.0-100.0); MEAN PLATELET VOLUME 9.8 fL (7.4-10.4); MONOCYTES 2.6 % (2-11); NEUTROPHILS 80.1 % (40-80); RBC 3.74 10x6/uL (4.00-5.40); RDW 14.4 % (11.5-14.5)
[2019-10-29 05:14] LABS: PLATELET COUNT 136 10x3/uL (130-400); WBC 6.2 10x3/uL (4.8-10.8)
--- NOTE | 2019-10-29 07:00 | NUR ---
RECEIVED REPORT. ASSUMED CARE OF PATIENT. PATIENT RESTING WITH EYES CLOSED. RESP EVEN AND UNLABORED. CALL LIGHT WITHIN REACH. NO DISTRESS.
--- NOTE | 2019-10-29 10:00 | NUR ---
ASSISTED PATIENT ON AND OFF OF BEDPAN. LINENS CHANGED. NO DISTRESS. CALL LIGHT WITHIN REACH.
--- NOTE | 2019-10-29 11:48 | NUR ---
FSBS 368. 24 UNITS INSULIN ADMINISTERED PER SLIDING SCALE VIA STUDENT NURSE AND HER INSTRUCTOR.
--- NOTE | 2019-10-29 15:24 | NUR ---
ASSISTED PATIENT ON AND OFF OF BEDPAN. PATIENT ASSISTED TO TOP OF BED. NO DISTRESS. CALL LIGHT WITHIN REACH.
--- NOTE | 2019-10-29 17:51 | NUR ---
ASSISTED PATIENT ON AND OFF THE BEDPAN. NO DISTRESS.
--- NOTE | 2019-10-29 19:06 | NUR ---
PT AROUSES EASILY AND CO ANXIETY I WILL MICHEAL ARENAS BED IS LOW AND LOCKED CALL LIGHT IS WITH PT OTHER NEEDS SEEN TO
[2019-10-30] VITALS: BP 116/77
--- NOTE | 2019-10-30 01:39 | NUR ---
I have reviewed this patient and I concur with the Shift Assessment completed by the Licensed Practical Nurse today this shift.
[2019-10-30 05:13] VITALS: BP 143/74
[2019-10-30 06:06] LABS: BASOPHILS 0 % (0-2); EOSINOPHILS 0 % (0-7); HEMATOCRIT 34.1 % (36.0-48.0); IMMATURE GRANULOCYTES 2.1 % (0-5); LYMPHOCYTES 23.1 % (15-50); MCH 30.2 pg (26.0-34.0); MCHC 32.3 g/dL (31.0-37.0); MCV 93.7 fL (80.0-100.0); MEAN PLATELET VOLUME 9.8 fL (7.4-10.4); MONOCYTES 3.4 % (2-11); NEUTROPHILS 71.4 % (40-80); PLATELET COUNT 125 10x3/uL (130-400); RBC 3.64 10x6/uL (4.00-5.40); RDW 14.2 % (11.5-14.5); WBC 5.7 10x3/uL (4.8-10.8)
[2019-10-30 06:30] LABS: CALC OSMOLALITY 295 mosm/kg (275-300); CALCIUM 8.5 mg/dL (8.5-10.1); CARBON DIOXIDE 31.5 mmol/L (21.0-32.0); CHLORIDE - SERUM 104 mmol/L (98-107); CREATININE - SERUM 0.7 mg/dL (0.6-1.3); GLUCOSE 285 mg/dL (74-106); MAGNESIUM - SERUM 1.9 mg/dL (1.8-2.4); POTASSIUM - SERUM 3.9 mmol/L (3.5-5.1); SODIUM 142 mmol/L (136-145); UREA NITROGEN 21 mg/dL (7-18); eGFR NON AFRICAN AMERICAN 90 mL/min (90-120)
--- NOTE | 2019-10-30 07:45 | NUR ---
AM ROUNDS COMPLETED. INTRODUCED MYSELF TO PT PRIMARY RN FOR TODAYS SHIFT. PT IS A&O SITTING UP IN BED RESTING QUIETLY. SHIFT ASSESSMENT COMPLETED. RR NONLABORED WITH NC @3L IN PLACE. PT HAS A R.FA PIV WITH NS INFUSING. PT DENIES ANY CURRENT PAIN OR NEEDS AT THIS TIME. CL IN REACH, BED IN LOWEST, SIDE RAILS X2. WILL CTM.
[2019-10-30 09:00] VITALS: BP 149/71
[2019-10-30 11:00] VITALS: BP 135/75
--- NOTE | 2019-10-30 13:41 | NUR ---
Rehab Note- Acute Inpatient Rehab prescreen order received. The patient has [employer] insurnace and will require a PreAuth prior to an inpatient acute rehab stay. PT Eval states lethargic and possibly low level. Has a pending OT Eval that would be needed for PReAuth process. Will follow at this time due to patient appears too low level at this time for acute inpatient rehab. Thank you for this referral! Cori Gonzalez RN Clinical Liaison, [facility] Rehab
--- NOTE | 2019-10-30 18:17 | MORECARE ---
CASE MANAGEMENT DISCHARGE SUMMARY PATIENT: AMBER MILLER UNIT: [id number] ADM DATE: 10/27/19 AGE: 59 : 56 SEX: F ROOM/BED: D.2100 AUTHOR: FAITH CULLEN PHYSICIAN: REFERRING PHYSICIAN: ERROL DONOVAN MD DATE OF SERVICE: 10/30/19 Discharge Plan Patient Name: AMBER MILLER [facility] [facility] 1960 Planned Disposition: Home with Hospice Anticipated Discharge Date: Discharge Date: Expected LOS: Initial Reviewer: [id number] Initial Review Date: 10/30/2019 Generated: 10/30/19 7:16 pm DCPIA - Discharge Planning Initial Assessment Updated by [id number]: Alireza Recio on 10/30/19 6:10 pm * Is the patient Alert and Oriented? Yes * How many steps to enter\exit or inside your home? NONE * PCP DR. THOMAS * Pharmacy [facility] * Preadmission Environment Home with Family * ADLs Partial Dependent * Partial ADLs (Assistance needed) Bathing Medication Management Toileting * Equipment Bedside Commode Elevated [place] [facility] Bed Nebulizer Oxygen Rolling Walker Shower Chair * Other Equipment ALL EQUIPMENT PROVIDED BY [facility] * List name and contact numbers for known caregivers / representatives who currently or will assist patient after discharge: RITA MILLER DTR, * Verbal permission to speak to the caregivers and representatives has been obtained from the patient. N/A * Community resources currently utilized Hospice Home * Please name any agencies selected above. [facility], REVOKED TO BE IN HOSPITAL * Additional services required to return to the preadmission environment? No * Can the patient safely return to the preadmission environment? Yes * Has this patient been hospitalized within the prior 30 days at any hospital? No Patient Name: AMBER MILLER Page [id number] at 1817 All edits/amendments must be made on the electronic document DICTATION DATE: 10/30/191815 PNEUMATIC TUBE REPAIRER: ROBERTA 10/30/191815 RPT#: [id number] DC DATE: STATUS: ADM IN [facility] [address] [facility] [place] [address] END OF REPORT
--- NOTE | 2019-10-30 18:25 | MORECARE ---
CASE MANAGEMENT DISCHARGE SUMMARY PATIENT: AMBER MILLER UNIT: [id number] ADM DATE: 10/27/19 AGE: 59 : 56 SEX: F ROOM/BED: D.2781 AUTHOR: ALYES,DOC PHYSICIAN: REFERRING PHYSICIAN: ERROL DONOVAN MD DATE OF SERVICE: 10/30/19 Discharge Plan Patient Name: AMBER MILLER Facility: [facility]:[place] : 1960 Planned Disposition: Home with Hospice Anticipated Discharge Date: Discharge Date: Expected LOS: Initial Reviewer: [id number] Initial Review Date: 10/30/2019 Generated: 10/30/19 7:24 pm Comments DCP- Discharge Planning Updated by [id number]: Alireza Recio on 10/30/19 5:[address] Patient Name: MABER MILLER Admission Status: ER Accout number: [id number] Admission Date: 10-27-2019 : 1960 Admission Diagnosis: Attending: ERROL DONOVAN Current LOS: 3 Anticipated DC Date: Planned Disposition: Home with Hospice Primary Insurance: [employer] CHOICE PPO [facility] ADVANT PLANNED EXTERNAL PROVIDER: [facility]. Discharge Planning Comments: CM MET WITH PT IN ROOM TO DISCUSS DISCHARGE PLANNING AND NEEDS. PT REPORTS LIVING AT HOME DEPENDANT ON [employer]IDES AND FAMILY FOR BATHING, TOILETING AND MEDICATIONS. PT HAS ALL NEEDED MEDICAL EQUIPMENT FROM HOSPICE. PT REVOKED HOSPICE TO BE IN HOSPITAL. PT HAS NO OTHER OUTSIDE SERVICES ASSISTING IN THE HOME. CM DISCUSSED AVAILABILITY OF HOME HEALTH, REHAB SERVICES AND MEDICAL EQUIPMENT. PT DOES NOT WANT HOME HEALTH OR REHAB SERVICES AND FEELS SHE WILL GET MORE AND BETTER CARE FROM [facility]. SHE WANTS TO RESUME THEIR CARE AT DISCHARGE. CM EXPLAINED SHE WILL HAVE TO BE REEVALUATED. CM EXPLAINED THAT PT MAY NEED BIPAP; PT STATES SHE DID NOT WANT HOME AND WAS NOT WEARING IT AT HOME, SHE FEELS SMOTHERED BY IT AND TOLD THEM TO PICK HERS UP BECAUSE SHE REFUSED TO WEAR IT. CM EXPLAINED THE DOCTOR WANTING TO ORDER BIPAP WITH ANXIETY MEDICATION TO SEE IF PT CAN WEAR IT. PT STATES SHE WOULD LIKE TO TRY THIS IN THE HOSPTIAL TO MAKE SURE SHE WANTS IT BEFORE HOME ARRANGEMENT. IMPORTANT MESSAGE FROM MEDICARE PROVIDED AND EXPLAINED. CHOICE FOR [facility] SIGNED. CM CALLED [facility], , SPOKE TO SYMONE WHO ADVISED THAT THEY CAN DO BIPAP BUT DR. THOMAS WOULD HAVE TO AGREE TO READMIT PT ON HOSPICE WITH THE BIPAP. PT WILL NEED NEW ORDER AND ASSESSMENT FOR HOSPICE AT DISCHARGE. CM TO ARRANGE HOSPICE ASSESSMENT FOR HOME HOSPICE WITH PHYSICIAN AGREEMENT AND ORDER. PT IS NOT SURE SHE WANTS BIPAP AT THIS TIME. Cardiac Catheterization Technician: Alireza Recio DCPIA - Discharge Planning Initial Assessment Updated by [id number]: Alireza Recio on 10/30/19 6:10 pm * Is the patient Alert and Oriented? Yes * How many steps to enter\exit or inside your home? NONE * PCP DR. THOMAS * Pharmacy [facility] * Preadmission Environment Home with Family * ADLs Partial Dependent * Partial ADLs (Assistance needed) Bathing Medication Management Toileting * Equipment Bedside Commode Elevated [facility] Bed Nebulizer Oxygen Rolling Walker Shower Chair * Other Equipment ALL EQUIPMENT PROVIDED BY [facility] * List name and contact numbers for known caregivers / representatives who currently or will assist patient after discharge: RITA MILLER DTR, * Verbal permission to speak to the caregivers and representatives has been obtained from the patient. N/A * Community resources currently utilized Hospice Home * Please name any agencies selected above. [facility], REVOKED TO BE IN HOSPITAL * Additional services required to return to the preadmission environment? No * Can the patient safely return to the preadmission environment? Yes * Has this patient been hospitalized within the prior 30 days at any hospital? No Coverage Notice Reviewer: [id number] Suman Recio Notice Issued Date-Time: 10/30/2019 14:08 Notice Type: IM Discharge Notice Notice Delivered To: Patient Relationship to Patient: Underwriting Technician Name: Delivery Method: HAND - Hand Delivered Lily Days: Prior Verbal Notification: Recipient Understood Notice: Yes Recipient Signature: Yes Med Rec Note Co-signed by Attending: Coverage Notice Comment: Reviewer: [id number] Suman Recio Notice Issued Date-Time: 10/30/2019 14:08 Notice Type: Patient Choice Letter Notice Delivered To: Patient Relationship to Patient: Underwriting Technician Name: Delivery Method: HAND - Hand Delivered Lily Days: Prior Verbal Notification: Recipient Understood Notice: Yes Recipient Signature: Yes Med Rec Note Co-signed by Attending: Coverage Notice Comment: [facility] Last DP export: 10/30/19 5:17 p Patient Name: AMBER MILLER Page [phone] at 1825 All edits/amendments must be made on the electronic document DICTATION DATE: 10/30/191823 ICT CUSTOMER SUPPORT OFFICER: ROBERTA 10/30/191823 RPT#: [id number] DC DATE: STATUS: ADM IN [facility] [address] [place] [address] END OF REPORT
--- NOTE | 2019-10-30 19:00 | NUR ---
OT NOTE: (DOS 10/29/2019) PT COMPLETED SIDE ROLLING WITH SBA USING SIDERAIL. PT COMPLETED SUPINE TO SIT WITH CGA/MIN A. PT STATED SHE FEELS WEAK TODAY. NURSING AWARE. [phone] THANK YOU,INKHIL LAUGHLIN
--- NOTE | 2019-10-30 19:15 | NUR ---
REPORT RECEIVED, WILL CONTINUE POC. PATIENT IS AAOX4, UP ON BEDSIDE COMMODE. NO S/S OF DISTRESS OBSERVED, RR EVEN AND UNLABORED ON 3L O2 VIA NC. PIV TO RT FA, INFUSING NS @ K[facility]. ASSISTED PATIENT BACK TO BED. PATIENT HAD SMALL LOOSE BM, SOILDED BED WELL. LINENS CHANGED. PATIENT DENIES FURTHER NEEDS AT THIS TIME. CL IN REACH, BED LOCKED AND LOWERED. WILL CTM.
[2019-10-30 20:00] VITALS: BP 110/77
--- NOTE | 2019-10-30 20:24 | NUR ---
OT NOTE: PT NOTES THAT SHE HAS A FEAR OF FALLING. PT COMPLETED BED TO BSC TRANSFER WITH MIN A SECONDARY TO INCREASED ANXIETY. PT COMPLETED SIT TO STAND WITH MIN A. PT EXHIBITED INCREASED I WITH DYNAMIC BED MOBILITY SECONDARY TO DECREASED RISK OF FALL. PT IS ABLE TO COMPLETED SUPINE TO SIT WITH SBA/CGA. PT REQUIRED MAX A WITH TOILET HYGIENE. PTS PERFORMANCE OF FUNCTIONAL TASKS IS INCONSISTENT SECONDARY TO INCREASED ANXIETY DUE TO PAST FALLS . [phone] THANK YOU,NIKHIL LAUGHLIN
[2019-10-31] VITALS: BP 146/86
--- NOTE | 2019-10-31 01:19 | NUR ---
PATIENT REQUESTED ATIVAN. PRN ATIVAN ADMINISTERED PER ORDERS.
--- NOTE | 2019-10-31 03:37 | NUR ---
I have reviewed this patient and I concur with the Shift Assessment completed by the Licensed Practical Nurse today this shift.
[2019-10-31 04:00] VITALS: BP 138/59
[2019-10-31 05:49] LABS: CALCIUM 8.6 mg/dL (8.5-10.1); CHLORIDE - SERUM 106 mmol/L (98-107); CREATININE - SERUM 0.7 mg/dL (0.6-1.3); MAGNESIUM - SERUM 1.8 mg/dL (1.8-2.4); SODIUM 144 mmol/L (136-145); UREA NITROGEN 19 mg/dL (7-18); eGFR NON AFRICAN AMERICAN 90 mL/min (90-120)
[2019-10-31 05:52] LABS: CALC OSMOLALITY 288 mosm/kg (275-300); GLUCOSE 105 mg/dL (74-106); POTASSIUM - SERUM 3.3 mmol/L (3.5-5.1)
[2019-10-31 05:58] LABS: BASOPHILS 0.1 % (0-2); EOSINOPHILS 0.4 % (0-7); HEMOGLOBIN 11.2 g/dL (12-16); IMMATURE GRANULOCYTES 3.5 % (0-5); LYMPHOCYTES 45.7 % (15-50); MCH 29.8 pg (26.0-34.0); MCV 93.1 fL (80.0-100.0); MEAN PLATELET VOLUME 9.3 fL (7.4-10.4); MONOCYTES 5.4 % (2-11); NEUTROPHILS 44.9 % (40-80); PLATELET COUNT 122 10x3/uL (130-400); RBC 3.76 10x6/uL (4.00-5.40); WBC 6.8 10x3/uL (4.8-10.8)
[2019-10-31 08:57] VITALS: BP 141/64
--- NOTE | 2019-10-31 10:22 | NUR ---
PT A/O X4. LETHARGIC AND SLOW TO MOVE. ASSISTED PT TO BESIDE CAMODE AND SAT PT UP IN CHAIR ORDERED. VSS. NO S/S OF DISTRESS AT THIS TIME. BED LOW CALL LIGHT WITHIN REACH. WILL CONTINUE TO MONITOR.
[2019-10-31] MEDS ORDERED: AZITHROMYCIN500 MG PO (11:29)
[2019-10-31] MEDS ORDERED: OMNICEF300 MG PO (11:29)
[2019-10-31] MEDS ORDERED: STERAPRED DS 1010 MG PO (11:30)
[2019-10-31] MEDS ORDERED: PROTONIX40 MG PO (11:32)
[2019-10-31] MEDS ORDERED: BASAGLAR K100 UNIT/1 SC (11:34)
[2019-10-31] MEDS ORDERED: HUMALOG 30100 UNITS/ SC (11:40)
[2019-10-31 12:02] VITALS: BP 125/68
--- NOTE | 2019-10-31 12:58 | MORECARE ---
CASE MANAGEMENT DISCHARGE SUMMARY PATIENT: AMBER MILLER UNIT: [id number] ADM DATE: 10/27/19 AGE: 59 : 56 SEX: F ROOM/BED: D.0002 AUTHOR: ALYSE,DOC PHYSICIAN: REFERRING PHYSICIAN: ERROL DONOVAN MD DATE OF SERVICE: 10/31/19 Discharge Plan Patient Name: AMBER MILLER Facility: [facility]:[place] : 1960 Planned Disposition: Home with Hospice Anticipated Discharge Date: Discharge Date: Expected LOS: Initial Reviewer: [id number] Initial Review Date: 10/30/2019 Generated: 10/31/19 1:58 pm Comments DCP- Discharge Planning Updated by [id number]: Alireza Recio on 10/30/19 5:[address] Patient Name: AMBER MILLER Admission Status: ER Accout number: [id number] Admission Date: 10-27-2019 : 1960 Admission Diagnosis: Attending: ERROL DONOVAN Current LOS: 3 Anticipated DC Date: Planned Disposition: Home with Hospice Primary Insurance: [employer] CHOICE PPO [facility] ADVANT PLANNED EXTERNAL PROVIDER: [facility]. Discharge Planning Comments: CM MET WITH PT IN ROOM TO DISCUSS DISCHARGE PLANNING AND NEEDS. PT REPORTS LIVING AT HOME DEPENDANT ON [employer] AND FAMILY FOR BATHING, TOILETING AND MEDICATIONS. PT HAS ALL NEEDED MEDICAL EQUIPMENT FROM HOSPICE. PT REVOKED HOSPICE TO BE IN HOSPITAL. PT HAS NO OTHER OUTSIDE SERVICES ASSISTING IN THE HOME. CM DISCUSSED AVAILABILITY OF HOME HEALTH, REHAB SERVICES AND MEDICAL EQUIPMENT. PT DOES NOT WANT HOME HEALTH OR REHAB SERVICES AND FEELS SHE WILL GET MORE AND BETTER CARE FROM [facility]. SHE WANTS TO RESUME THEIR CARE AT DISCHARGE. CM EXPLAINED SHE WILL HAVE TO BE REEVALUATED. CM EXPLAINED THAT PT MAY NEED BIPAP; PT STATES SHE DID NOT WANT HOME AND WAS NOT WEARING IT AT HOME, SHE FEELS SMOTHERED BY IT AND TOLD THEM TO PICK HERS UP BECAUSE SHE REFUSED TO WEAR IT. CM EXPLAINED THE DOCTOR WANTING TO ORDER BIPAP WITH ANXIETY MEDICATION TO SEE IF PT CAN WEAR IT. PT STATES SHE WOULD LIKE TO TRY THIS IN THE HOSPTIAL TO MAKE SURE SHE WANTS IT BEFORE HOME ARRANGEMENT. IMPORTANT MESSAGE FROM MEDICARE PROVIDED AND EXPLAINED. CHOICE FOR [facility] SIGNED. CM CALLED [facility], , SPOKE TO SYMONE WHO ADVISED THAT THEY CAN DO BIPAP BUT DR. THOMAS WOULD HAVE TO AGREE TO READMIT PT ON HOSPICE WITH THE BIPAP. PT WILL NEED NEW ORDER AND ASSESSMENT FOR HOSPICE AT DISCHARGE. CM TO ARRANGE HOSPICE ASSESSMENT FOR HOME HOSPICE WITH PHYSICIAN AGREEMENT AND ORDER. PT IS NOT SURE SHE WANTS BIPAP AT THIS TIME. Quill Layer: Alireza Recio DCPIA - Discharge Planning Initial Assessment Updated by [id number]: Alireza Recio on 10/30/19 6:10 pm * Is the patient Alert and Oriented? Yes * How many steps to enter\exit or inside your home? NONE * PCP DR. THOMAS * Pharmacy [facility] * Preadmission Environment Home with Family * ADLs Partial Dependent * Partial ADLs (Assistance needed) Bathing Medication Management Toileting * Equipment Bedside Commode Elevated [facility] Bed Nebulizer Oxygen Rolling Walker Shower Chair * Other Equipment ALL EQUIPMENT PROVIDED BY [facility] * List name and contact numbers for known caregivers / representatives who currently or will assist patient after discharge: RITA MILLER DTR, * Verbal permission to speak to the caregivers and representatives has been obtained from the patient. N/A * Community resources currently utilized Hospice Home * Please name any agencies selected above. [facility], REVOKED TO BE IN HOSPITAL * Additional services required to return to the preadmission environment? No * Can the patient safely return to the preadmission environment? Yes * Has this patient been hospitalized within the prior 30 days at any hospital? No External Providers External Provider[facility] Next Contact Date: 10/31/2019 Service Request Date: Service Type: Resolution: Reviewer: Comments: Coverage Notice Reviewer: [id number] Suman Recio Notice Issued Date-Time: 10/30/2019 14:08 Notice Type: IM Discharge Notice Notice Delivered To: Patient Relationship to Patient: Outsole Splicer Name: Delivery Method: HAND - Hand Delivered Lily Days: Prior Verbal Notification: Recipient Understood Notice: Yes Recipient Signature: Yes Med Rec Note Co-signed by Attending: Coverage Notice Comment: Reviewer: [id number] Suman Recio Notice Issued Date-Time: 10/30/2019 14:08 Notice Type: Patient Choice Letter Notice Delivered To: Patient Relationship to Patient: Outsole Splicer Name: Delivery Method: HAND - Hand Delivered Lily Days: Prior Verbal Notification: Recipient Understood Notice: Yes Recipient Signature: Yes Med Rec Note Co-signed by Attending: Coverage Notice Comment: [facility] Last DP export: 10/30/19 5:25 p Patient Name: AMBER MILLER Page 20031 at 1258 All edits/amendments must be made on the electronic document DICTATION DATE: 10/31/191257 MANAGER REVENUE: ROBERTA 10/31/19 1258 RPT#: [id number] DC DATE: STATUS: ADM IN [facility] [address] [place] [address] END OF REPORT
--- NOTE | 2019-10-31 13:11 | MORECARE ---
CASE MANAGEMENT DISCHARGE SUMMARY PATIENT: AMBER MILLER UNIT: [id number] ADM DATE: 10/27/19 AGE: 59 : 56 SEX: F ROOM/BED: D.6266 AUTHOR: ALYSEDOC PHYSICIAN: REFERRING PHYSICIAN: ERROL DONOVAN MD DATE OF SERVICE: 10/31/19 Discharge Plan Patient Name: AMBER MILLER Facility: [facility]:[place] : 1960 Planned Disposition: Home with Hospice Anticipated Discharge Date: 10/31/19 Discharge Date: Expected LOS: 4 Initial Reviewer: [email or web address] Initial Review Date: 10/30/2019 Generated: 10/31/19 2:10 pm Comments DCP- Discharge Planning Updated by [id number]: Alireza Recio on 10/30/19 5:[address] Patient Name: AMBER MILLER Admission Status: ER Accout number: [id number] Admission Date: 10-27-2019 : 1960 Admission Diagnosis: Attending: ERROL DONOVAN Current LOS: 3 Anticipated DC Date: Planned Disposition: Home with Hospice Primary Insurance: [employer] CHOICE PPO [employer] PLANNED EXTERNAL PROVIDER: [facility]. Discharge Planning Comments: CM MET WITH PT IN ROOM TO DISCUSS DISCHARGE PLANNING AND NEEDS. PT REPORTS LIVING AT HOME DEPENDANT ON [employer] AND FAMILY FOR BATHING, TOILETING AND MEDICATIONS. PT HAS ALL NEEDED MEDICAL EQUIPMENT FROM HOSPICE. PT REVOKED HOSPICE TO BE IN HOSPITAL. PT HAS NO OTHER OUTSIDE SERVICES ASSISTING IN THE HOME. CM DISCUSSED AVAILABILITY OF HOME HEALTH, REHAB SERVICES AND MEDICAL EQUIPMENT. PT DOES NOT WANT HOME HEALTH OR REHAB SERVICES AND FEELS SHE WILL GET MORE AND BETTER CARE FROM [facility]. SHE WANTS TO RESUME THEIR CARE AT DISCHARGE. CM EXPLAINED SHE WILL HAVE TO BE REEVALUATED. CM EXPLAINED THAT PT MAY NEED BIPAP; PT STATES SHE DID NOT WANT HOME AND WAS NOT WEARING IT AT HOME, SHE FEELS SMOTHERED BY IT AND TOLD THEM TO PICK HERS UP BECAUSE SHE REFUSED TO WEAR IT. CM EXPLAINED THE DOCTOR WANTING TO ORDER BIPAP WITH ANXIETY MEDICATION TO SEE IF PT CAN WEAR IT. PT STATES SHE WOULD LIKE TO TRY THIS IN THE HOSPTIAL TO MAKE SURE SHE WANTS IT BEFORE HOME ARRANGEMENT. IMPORTANT MESSAGE FROM MEDICARE PROVIDED AND EXPLAINED. CHOICE FOR [facility] SIGNED. CM CALLED [facility], , SPOKE TO SYMONE WHO ADVISED THAT THEY CAN DO BIPAP BUT DR. THOMAS WOULD HAVE TO AGREE TO READMIT PT ON HOSPICE WITH THE BIPAP. PT WILL NEED NEW ORDER AND ASSESSMENT FOR HOSPICE AT DISCHARGE. CM TO ARRANGE HOSPICE ASSESSMENT FOR HOME HOSPICE WITH PHYSICIAN AGREEMENT AND ORDER. PT IS NOT SURE SHE WANTS BIPAP AT THIS TIME. Ambulance Officer: Alireza Recio DCPIA - Discharge Planning Initial Assessment Updated by [email or web address]: Alireza Recio on 10/30/19 6:10 pm * Is the patient Alert and Oriented? Yes * How many steps to enter\exit or inside your home? NONE * PCP DR. THOMAS * Pharmacy [facility] * Preadmission Environment Home with Family * ADLs Partial Dependent * Partial ADLs (Assistance needed) Bathing Medication Management Toileting * Equipment Bedside Commode Elevated [facility] Bed Nebulizer Oxygen Rolling Walker Shower Chair * Other Equipment ALL EQUIPMENT PROVIDED BY [facility] * List name and contact numbers for known caregivers / representatives who currently or will assist patient after discharge: RITA MILLER DTR, * Verbal permission to speak to the caregivers and representatives has been obtained from the patient. N/A * Community resources currently utilized Hospice Home * Please name any agencies selected above. [facility], REVOKED TO BE IN HOSPITAL * Additional services required to return to the preadmission environment? No * Can the patient safely return to the preadmission environment? Yes * Has this patient been hospitalized within the prior 30 days at any hospital? No Coverage Notice Reviewer: [id number] Suman Recio Notice Issued Date-Time: 10/30/2019 14:08 Notice Type: IM Discharge Notice Notice Delivered To: Patient Relationship to Patient: Steel Grinder Name: Delivery Method: HAND - Hand Delivered Lily Days: Prior Verbal Notification: Recipient Understood Notice: Yes Recipient Signature: Yes Med Rec Note Co-signed by Attending: Coverage Notice Comment: Reviewer: [id number] Suman Recio Notice Issued Date-Time: 10/30/2019 14:08 Notice Type: Patient Choice Letter Notice Delivered To: Patient Relationship to Patient: Steel Grinder Name: Delivery Method: HAND - Hand Delivered Lily Days: Prior Verbal Notification: Recipient Understood Notice: Yes Recipient Signature: Yes Med Rec Note Co-signed by Attending: Coverage Notice Comment: [facility] Last DP export: 10/31/19 11:58 a Patient Name: AMBER MILLER Page [phone] at 1311 All edits/amendments must be made on the electronic document DICTATION DATE: 10/31/191309 SHORT PIECE HANDLER: ROBERTA 10/31/19 1310 RPT#: [id number] DC DATE: STATUS: ADM IN [facility] [address] [place] [address] END OF REPORT
--- NOTE | 2019-10-31 13:24 | MORECARE ---
CASE MANAGEMENT DISCHARGE SUMMARY PATIENT: AMBER MILLER UNIT: [id number] ADM DATE: 10/27/19 AGE: 59 : 56 SEX: F ROOM/BED: D.4114 AUTHOR: ALYSEDOC PHYSICIAN: REFERRING PHYSICIAN: ERROL DONOVAN MD DATE OF SERVICE: 10/31/19 Discharge Plan Patient Name: AMBER MILLER Facility: [facility]:[place] : 1960 Planned Disposition: Home with Hospice Anticipated Discharge Date: 10/31/19 Discharge Date: Expected LOS: 4 Initial Reviewer: [id number] Initial Review Date: 10/30/2019 Generated: 10/31/19 2:24 pm Comments DCP- Discharge Planning Updated by [id number]: Alireza Recio on 10/30/19 5:[address] Patient Name: AMBER MILLER Admission Status: ER Accout number: [id number] Admission Date: 10-27-2019 : 1960 Admission Diagnosis: Attending: ERROL DONOVAN Current LOS: 3 Anticipated DC Date: Planned Disposition: Home with Hospice Primary Insurance: [employer] CHOICE PPO MCR ADVANT PLANNED EXTERNAL PROVIDER: [facility]. Discharge Planning Comments: CM MET WITH PT IN ROOM TO DISCUSS DISCHARGE PLANNING AND NEEDS. PT REPORTS LIVING AT HOME DEPENDANT ON AIDES AND FAMILY FOR BATHING, TOILETING AND MEDICATIONS. PT HAS ALL NEEDED MEDICAL EQUIPMENT FROM HOSPICE. PT REVOKED HOSPICE TO BE IN HOSPITAL. PT HAS NO OTHER OUTSIDE SERVICES ASSISTING IN THE HOME. CM DISCUSSED AVAILABILITY OF HOME HEALTH, REHAB SERVICES AND MEDICAL EQUIPMENT. PT DOES NOT WANT HOME HEALTH OR REHAB SERVICES AND FEELS SHE WILL GET MORE AND BETTER CARE FROM [facility]. SHE WANTS TO RESUME THEIR CARE AT DISCHARGE. CM EXPLAINED SHE WILL HAVE TO BE REEVALUATED. CM EXPLAINED THAT PT MAY NEED BIPAP; PT STATES SHE DID NOT WANT HOME AND WAS NOT WEARING IT AT HOME, SHE FEELS SMOTHERED BY IT AND TOLD THEM TO PICK HERS UP BECAUSE SHE REFUSED TO WEAR IT. CM EXPLAINED THE DOCTOR WANTING TO ORDER BIPAP WITH ANXIETY MEDICATION TO SEE IF PT CAN WEAR IT. PT STATES SHE WOULD LIKE TO TRY THIS IN THE HOSPTIAL TO MAKE SURE SHE WANTS IT BEFORE HOME ARRANGEMENT. IMPORTANT MESSAGE FROM MEDICARE PROVIDED AND EXPLAINED. CHOICE FOR [facility] SIGNED. CM CALLED [facility], , SPOKE TO SYMONE WHO ADVISED THAT THEY CAN DO BIPAP BUT DR. THOMAS WOULD HAVE TO AGREE TO READMIT PT ON HOSPICE WITH THE BIPAP. PT WILL NEED NEW ORDER AND ASSESSMENT FOR HOSPICE AT DISCHARGE. CM TO ARRANGE HOSPICE ASSESSMENT FOR HOME HOSPICE WITH PHYSICIAN AGREEMENT AND ORDER. PT IS NOT SURE SHE WANTS BIPAP AT THIS TIME. Traveling Phlebotomist: Alireza Recio DCPIA - Discharge Planning Initial Assessment Updated by [id number]: Alireza Recio on 10/30/19 6:10 pm * Is the patient Alert and Oriented? Yes * How many steps to enter\exit or inside your home? NONE * PCP DR. THOMAS * Pharmacy [facility] * Preadmission Environment Home with Family * ADLs Partial Dependent * Partial ADLs (Assistance needed) Bathing Medication Management Toileting * Equipment Bedside Commode Elevated [place] [facility] Bed Nebulizer Oxygen Rolling Walker Shower Chair * Other Equipment ALL EQUIPMENT PROVIDED BY [facility] * List name and contact numbers for known caregivers / representatives who currently or will assist patient after discharge: RITA MILLER DTR, * Verbal permission to speak to the caregivers and representatives has been obtained from the patient. N/A * Community resources currently utilized Hospice Home * Please name any agencies selected above. [facility], REVOKED TO BE IN HOSPITAL * Additional services required to return to the preadmission environment? No * Can the patient safely return to the preadmission environment? Yes * Has this patient been hospitalized within the prior 30 days at any hospital? No Coverage Notice Reviewer: [id number] Suman Recio Notice Issued Date-Time: 10/30/2019 14:08 Notice Type: IM Discharge Notice Notice Delivered To: Patient Relationship to Patient: Division Controller Name: Delivery Method: HAND - Hand Delivered Lily Days: Prior Verbal Notification: Recipient Understood Notice: Yes Recipient Signature: Yes Med Rec Note Co-signed by Attending: Coverage Notice Comment: Reviewer: [id number] Suman Recio Notice Issued Date-Time: 10/30/2019 14:08 Notice Type: Patient Choice Letter Notice Delivered To: Patient Relationship to Patient: Division Controller Name: Delivery Method: HAND - Hand Delivered Lily Days: Prior Verbal Notification: Recipient Understood Notice: Yes Recipient Signature: Yes Med Rec Note Co-signed by Attending: Coverage Notice Comment: [facility] Last DP export: 10/31/19 12:11 p Patient Name: AMBER MILLER Page [phone] at 1324 All edits/amendments must be made on the electronic document DICTATION DATE: 10/31/19 1324 DATA MANAGEMENT: ROBERTA 10/31/19 1324 RPT#: [id number] DC DATE: STATUS: ADM IN [facility] [address] [place] [address] END OF REPORT
--- NOTE | 2019-10-31 14:32 | MORECARE ---
CASE MANAGEMENT DISCHARGE SUMMARY PATIENT: AMBER MILLER UNIT: [id number] ADM DATE: 10/27/19 AGE: 59 : 56 SEX: F ROOM/BED: D.3516 AUTHOR: ALYSE,DOC PHYSICIAN: REFERRING PHYSICIAN: ERROL DONOVAN MD DATE OF SERVICE: 10/31/19 Discharge Plan Patient Name: AMBER MILLER Facility: [facility]:[place] : 1960 Planned Disposition: Home with Hospice Anticipated Discharge Date: 10/31/19 Discharge Date: Expected LOS: 4 Initial Reviewer: [id number] Initial Review Date: 10/30/2019 Generated: 10/31/19 3:32 pm Comments DCP- Discharge Planning Updated by [email or web address]: Alireza Recio on 10/31/19 1:[address] Patient Name: AMBER MILLER Encounter No: [id number] : 1960 Primary Insurance: [employer] CHOICE PPO MCR ADVANT Anticipated DC Date: 10-31-2019 Planned Disposition: Home with Hospice External Planned Provider: [facility] Discharge Planning Comments: CM SPOKE TO BEDSIDE NURSE WHO INFORMED CM THAT PT WANTS REHAB. CM SPOKE TO ALDEN EASLEY WHO MET WITH PT. ALDEN EASLEY INFORMED CM THAT PT WANTS HOME WITH HOSPICE. CM CALLED [facility], SPOKE TO SYMONE WHO INFORMED CM THAT THEY WILL NOT PROVIDE THERAPY SERVICES FOR PT. CM MET WITH PT IN ROOM TO DISCUSS DISCHARGE PLANNING AND NEEDS. CM INFORMED PT THAT [facility] WILL NOT PROVIDE THERAPY SERVICES AND SHE WOULD HAVE TO GO TO REHAB OR HAVE HOME HEALTH FOR THERAPY SERVICES. PT WANTS TO RESUME HOSPICE WITH [facility] AT DISCHARGE. CM EXPLAINED SHE WILL HAVE TO BE REEVALUATED AND NOTIFIED THAT [facility] WILL DO THE EVALUATION AT HOME LATER TODAY. PT REPORTS FAMILY WILL TRANSPORT HOME. CM SPOKE TO PT AGAIN ABOUT BIPAP, PT STATES SHE HAS NOT WEAR IT HERE AND WILL NOT WEAR IT AT HOME. CM CALLED [facility], , SPOKE TO SYMONE AND LATER SPOKE TO JESSICA WHO ADVISED THAT THEY WILL EVALUATE PT AT HOME LATER TODAY AND ADMIT TOMORROW. PT NOTIFIED WHO DENIES FURHTER DISCHARGE NEEDS. CM RECEIVED CALL FROM PT'S DAUGHTER, RITA IN ROOM AT PT'S REQUEST, CM SPOKE TO HER; RITA REPORTS PT IS A NEW DIABETIC AND THEY DO NOT KNOW HOW TO MANAGE THIS OR GIVE INSULIN. RITA WILL CALL HER SISTER AND SEE HOW SOON HER SISTER, WHO LIVES WITH PT, CAN COME TO HOSPITAL FOR DIABETIC EDUCATION. RITA REPORTS PT DOES NOT HAVE ANY DIABETIC TESTING SUPPLIES IN THE HOME. CM NOTIFIED BEDSIDE NURSE AND MORTGAGE CONSULTANT NURSE. CM FAXED REFERRAL AND DISCHARGE INFORMATION TO [facility] AT [phone]. Top Lifter: Alireza Recio DCP- Discharge Planning Updated by [id number]: Alireza Recio on 10/30/19 5:[address] Patient Name: AMBER MILLER Admission Status: ER Accout number: [id number] Admission Date: 10-27-2019 : 1960 Admission Diagnosis: Attending: ERROL DONOVAN Current LOS: 3 Anticipated DC Date: Planned Disposition: Home with Hospice Primary Insurance: [employer] [facility] PLANNED EXTERNAL PROVIDER: [facility]. Discharge Planning Comments: CM MET WITH PT IN ROOM TO DISCUSS DISCHARGE PLANNING AND NEEDS. PT REPORTS LIVING AT HOME DEPENDANT ON AIDES AND FAMILY FOR BATHING, TOILETING AND MEDICATIONS. PT HAS ALL NEEDED MEDICAL EQUIPMENT FROM HOSPICE. PT REVOKED HOSPICE TO BE IN HOSPITAL. PT HAS NO OTHER OUTSIDE SERVICES ASSISTING IN THE HOME. CM DISCUSSED AVAILABILITY OF HOME HEALTH, REHAB SERVICES AND MEDICAL EQUIPMENT. PT DOES NOT WANT HOME HEALTH OR REHAB SERVICES AND FEELS SHE WILL GET MORE AND BETTER CARE FROM [facility]. SHE WANTS TO RESUME THEIR CARE AT DISCHARGE. CM EXPLAINED SHE WILL HAVE TO BE REEVALUATED. CM EXPLAINED THAT PT MAY NEED BIPAP; PT STATES SHE DID NOT WANT HOME AND WAS NOT WEARING IT AT HOME, SHE FEELS SMOTHERED BY IT AND TOLD THEM TO PICK HERS UP BECAUSE SHE REFUSED TO WEAR IT. CM EXPLAINED THE DOCTOR WANTING TO ORDER BIPAP WITH ANXIETY MEDICATION TO SEE IF PT CAN WEAR IT. PT STATES SHE WOULD LIKE TO TRY THIS IN THE HOSPTIAL TO MAKE SURE SHE WANTS IT BEFORE HOME ARRANGEMENT. IMPORTANT MESSAGE FROM MEDICARE PROVIDED AND EXPLAINED. CHOICE FOR [facility] SIGNED. CM CALLED [facility], , SPOKE TO SYMONE WHO ADVISED THAT THEY CAN DO BIPAP BUT DR. THOMAS WOULD HAVE TO AGREE TO READMIT PT ON HOSPICE WITH THE BIPAP. PT WILL NEED NEW ORDER AND ASSESSMENT FOR HOSPICE AT DISCHARGE. CM TO ARRANGE HOSPICE ASSESSMENT FOR HOME HOSPICE WITH PHYSICIAN AGREEMENT AND ORDER. PT IS NOT SURE SHE WANTS BIPAP AT THIS TIME. Top Lifter: Alireza Recio DCPIA - Discharge Planning Initial Assessment Updated by FANI: Alireza Recio on 10/30/19 6:10 pm * Is the patient Alert and Oriented? Yes * How many steps to enter\exit or inside your home? NONE * PCP DR. THOMAS * Pharmacy [facility] * Preadmission Environment Home with Family * ADLs Partial Dependent * Partial ADLs (Assistance needed) Bathing Medication Management Toileting * Equipment Bedside Commode Elevated [place] [facility] Bed Nebulizer Oxygen Rolling Walker Shower Chair * Other Equipment ALL EQUIPMENT PROVIDED BY [facility] * List name and contact numbers for known caregivers / representatives who currently or will assist patient after discharge: RITA MILLER DTR, * Verbal permission to speak to the caregivers and representatives has been obtained from the patient. N/A * Community resources currently utilized Hospice Home * Please name any agencies selected above. [facility], REVOKED TO BE IN HOSPITAL * Additional services required to return to the preadmission environment? No * Can the patient safely return to the preadmission environment? Yes * Has this patient been hospitalized within the prior 30 days at any hospital? No Coverage Notice Reviewer: [id number] Recio Notice Issued Date-Time: 10/30/2019 14:08 Notice Type: IM Discharge Notice Notice Delivered To: Patient Relationship to Patient: Biomedical Engineering Director Name: Delivery Method: HAND - Hand Delivered Lily Days: Prior Verbal Notification: Recipient Understood Notice: Yes Recipient Signature: Yes Med Rec Note Co-signed by Attending: Coverage Notice Comment: Reviewer: [id number] - Alireza Recio Notice Issued Date-Time: 10/30/2019 14:08 Notice Type: Patient Choice Letter Notice Delivered To: Patient Relationship to Patient: Biomedical Engineering Director Name: Delivery Method: HAND - Hand Delivered Lily Days: Prior Verbal Notification: Recipient Understood Notice: Yes Recipient Signature: Yes Med Rec Note Co-signed by Attending: Coverage Notice Comment: [facility] Last DP export: 10/31/19 12:24 p Patient Name: AMBER MILLER Page 53701 at 1432 All edits/amendments must be made on the electronic document DICTATION DATE: 10/31/191431 HUNTING SALES LEADER: ROBERTA 10/31/191431 RPT#: [id number] [place] DATE: STATUS: ADM IN [facility] [address] [place] [address] END OF REPORT
--- NOTE | 2019-10-31 16:12 | MORECARE ---
CASE MANAGEMENT DISCHARGE SUMMARY PATIENT: AMBER MILLER UNIT: [id number] ADM DATE: 10/27/19 AGE: 59 : 56 SEX: F ROOM/BED: D.0233 AUTHOR: ALYSE,DOC PHYSICIAN: REFERRING PHYSICIAN: ERROL DONOVAN MD DATE OF SERVICE: 10/31/19 Discharge Plan Patient Name: AMBER MILLER Facility: [facility]:[place] : 1960 Planned Disposition: Home with Hospice Anticipated Discharge Date: 10/31/19 Discharge Date: Expected LOS: 4 Initial Reviewer: [id number] Initial Review Date: 10/30/2019 Generated: 10/31/19 5:12 pm Comments DCP- Discharge Planning Updated by [id number]: Alireza Gomez on 10/31/19 3:[address] Patient Name: AMBER MILLER Encounter No: [id number] : 1960 Primary Insurance: [employer] CHOICE PPO MCR ADVANT Anticipated DC Date: 10-31-2019 Planned Disposition: Home with Hospice External Planned Provider: [facility] Discharge Planning Comments: CM SPOKE TO BEDSIDE NURSE WHO INFORMED CM THAT PT WANTS REHAB. CM SPOKE TO ALDEN EASLEY WHO MET WITH PT. ALDEN EASLEY INFORMED CM THAT PT WANTS HOME WITH HOSPICE. CM CALLED [facility], SPOKE TO SYMONE WHO INFORMED CM THAT THEY WILL NOT PROVIDE THERAPY SERVICES FOR PT. CM MET WITH PT IN ROOM TO DISCUSS DISCHARGE PLANNING AND NEEDS. CM INFORMED PT THAT [facility] WILL NOT PROVIDE THERAPY SERVICES AND SHE WOULD HAVE TO GO TO REHAB OR HAVE HOME HEALTH FOR THERAPY SERVICES. PT WANTS TO RESUME HOSPICE WITH [facility] AT DISCHARGE. CM EXPLAINED SHE WILL HAVE TO BE REEVALUATED AND NOTIFIED THAT [facility] WILL DO THE EVALUATION AT HOME LATER TODAY. PT REPORTS FAMILY WILL TRANSPORT HOME. CM SPOKE TO PT AGAIN ABOUT BIPAP, PT STATES SHE HAS NOT WEAR IT HERE AND WILL NOT WEAR IT AT HOME. CM CALLED [facility], , SPOKE TO SYMONE AND LATER SPOKE TO JESSICA WHO ADVISED THAT THEY WILL EVALUATE PT AT HOME LATER TODAY AND ADMIT TOMORROW. PT NOTIFIED WHO DENIES FURHTER DISCHARGE NEEDS. CM RECEIVED CALL FROM PT'S DAUGHTER, RITA IN ROOM AT PT'S REQUEST, CM SPOKE TO HER; RITA REPORTS PT IS A NEW DIABETIC AND THEY DO NOT KNOW HOW TO MANAGE THIS OR GIVE INSULIN. RITA WILL CALL HER SISTER AND SEE HOW SOON HER SISTER, WHO LIVES WITH PT, CAN COME TO HOSPITAL FOR DIABETIC EDUCATION. RITA REPORTS PT DOES NOT HAVE ANY DIABETIC TESTING SUPPLIES IN THE HOME. CM NOTIFIED BEDSIDE NURSE AND HAND COPER NURSE. CM FAXED REFERRAL AND DISCHARGE INFORMATION TO [facility] AT [phone]. Cement Mason Maintenance: Alireza Gomez Appended by Alireza Gomez on 10/31/2019 16:09 CDT: CM SPOKE TO ANTWAN OF [facility], SHE HAS EVALUTED PATIENT AND WILL ACCEPT FOR HOME HOSPICE ADMIT; DR. THOMAS HAS TO SEE PT PRIOR TO DISCHARGE HOME TODAY AND WILL COME AND SEE PT AFTER HIS CLINIC COMPLETES THIS EVENING. ANTWAN HAS SPOKEN TO BEDSIDE NURSE ABOUT MEDICATION CHANGES THEY ARE NOT GOING TO USE INSULIN WITH PT AND WILL USE OTHER ORAL AGENTS. HAND COPER NURSE NOTIFIED. ALIREZA GOMEZ, CASE MANAGEMENT DCP- Discharge Planning Updated by [id number]: Alireza Gomez on 10/30/19 5:[address] Patient Name: AMBER MILLER Admission Status: ER Accout number: [id number] Admission Date: 10-27-2019 : 1960 Admission Diagnosis: Attending: ERROL DONOVAN Current LOS: 3 Anticipated DC Date: Planned Disposition: Home with Hospice Primary Insurance: [employer] CHOICE PPO MCR ADVANT PLANNED EXTERNAL PROVIDER: [facility]. Discharge Planning Comments: CM MET WITH PT IN ROOM TO DISCUSS DISCHARGE PLANNING AND NEEDS. PT REPORTS LIVING AT HOME DEPENDANT ON AIDES AND FAMILY FOR BATHING, TOILETING AND MEDICATIONS. PT HAS ALL NEEDED MEDICAL EQUIPMENT FROM HOSPICE. PT REVOKED HOSPICE TO BE IN HOSPITAL. PT HAS NO OTHER OUTSIDE SERVICES ASSISTING IN THE HOME. CM DISCUSSED AVAILABILITY OF HOME HEALTH, REHAB SERVICES AND MEDICAL EQUIPMENT. PT DOES NOT WANT HOME HEALTH OR REHAB SERVICES AND FEELS SHE WILL GET MORE AND BETTER CARE FROM [facility]. SHE WANTS TO RESUME THEIR CARE AT DISCHARGE. CM EXPLAINED SHE WILL HAVE TO BE REEVALUATED. CM EXPLAINED THAT PT MAY NEED BIPAP; PT STATES SHE DID NOT WANT HOME AND WAS NOT WEARING IT AT HOME, SHE FEELS SMOTHERED BY IT AND TOLD THEM TO PICK HERS UP BECAUSE SHE REFUSED TO WEAR IT. CM EXPLAINED THE DOCTOR WANTING TO ORDER BIPAP WITH ANXIETY MEDICATION TO SEE IF PT CAN WEAR IT. PT STATES SHE WOULD LIKE TO TRY THIS IN THE HOSPTIAL TO MAKE SURE SHE WANTS IT BEFORE HOME ARRANGEMENT. IMPORTANT MESSAGE FROM MEDICARE PROVIDED AND EXPLAINED. CHOICE FOR [facility] SIGNED. CM CALLED [facility], , SPOKE TO SYMONE WHO ADVISED THAT THEY CAN DO BIPAP BUT DR. THOMAS WOULD HAVE TO AGREE TO READMIT PT ON HOSPICE WITH THE BIPAP. PT WILL NEED NEW ORDER AND ASSESSMENT FOR HOSPICE AT DISCHARGE. CM TO ARRANGE HOSPICE ASSESSMENT FOR HOME HOSPICE WITH PHYSICIAN AGREEMENT AND ORDER. PT IS NOT SURE SHE WANTS BIPAP AT THIS TIME. Cement Mason Maintenance: Alireza Gomez DCPIA - Discharge Planning Initial Assessment Updated by [id number]: Alireza Gomez on 10/30/19 6:10 pm * Is the patient Alert and Oriented? Yes * How many steps to enter\exit or inside your home? NONE * PCP DR. THOMAS * Pharmacy [facility] * Preadmission Environment Home with Family * ADLs Partial Dependent * Partial ADLs (Assistance needed) Bathing Medication Management Toileting * Equipment Bedside Commode Elevated [facility] Bed Nebulizer Oxygen Rolling Walker Shower Chair * Other Equipment ALL EQUIPMENT PROVIDED BY [facility] * List name and contact numbers for known caregivers / representatives who currently or will assist patient after discharge: RITA MILLER DTR, * Verbal permission to speak to the caregivers and representatives has been obtained from the patient. N/A * Community resources currently utilized Hospice Home * Please name any agencies selected above. [facility], REVOKED TO BE IN HOSPITAL * Additional services required to return to the preadmission environment? No * Can the patient safely return to the preadmission environment? Yes * Has this patient been hospitalized within the prior 30 days at any hospital? No Coverage Notice Reviewer: [id number] Suman Gomez Notice Issued Date-Time: 10/30/2019 14:08 Notice Type: IM Discharge Notice Notice Delivered To: Patient Relationship to Patient: Registered Diet Technician Name: Delivery Method: HAND - Hand Delivered Lily Days: Prior Verbal Notification: Recipient Understood Notice: Yes Recipient Signature: Yes Med Rec Note Co-signed by Attending: Coverage Notice Comment: Reviewer: [id number] Gomez Notice Issued Date-Time: 10/30/2019 14:08 Notice Type: Patient Choice Letter Notice Delivered To: Patient Relationship to Patient: Registered Diet Technician Name: Delivery Method: HAND - Hand Delivered Lily Days: Prior Verbal Notification: Recipient Understood Notice: Yes Recipient Signature: Yes Med Rec Note Co-signed by Attending: Coverage Notice Comment: [facility] Last DP export: 10/31/19 1:32 p Patient Name: AMBER MILLER Page [phone] at 1612 All edits/amendments must be made on the electronic document DICTATION DATE: 10/31/191611 FARM GENERAL MANAGER: ROBERTA 10/31/19 161 RPT#: [id number] DC DATE: STATUS: ADM IN [facility] [address] [place] [address] END OF REPORT
--- NOTE | 2019-10-31 18:57 | NUR ---
PT AND FAMILY WAITING ON DR. THOMAS PER HOSPICE NURSE SINCE 1499. HOSPICE NURSE STATES THAT DR THOMAS WANTS TO SEE PT BEFORE SHE LEAVES.
--- NOTE | 2019-10-31 19:52 | NUR ---
I WAS INSTRUCTED ALL PAPER WORK AND HAD SIGNED OFF ON PT DISCHARGE PT WAS IN AGREEMENT AND I ESCORTED PT TO VEHICLE VIA WC WITH OUT DIFICULTY
--- NOTE | 2019-11-08 11:25 | EC ---
PATIENT:AMBER MILLER DATE OF SERVICE: 10/27/19 SEX: F MEDICAL RECORD: [id number] DATE OF : [birth year] LOCATION:D.M2 D.210 AGE OF PATIENT: 59 ADMISSION DATE: 10/27/19 REFERRING PHYSICIAN: INTERPRETING PHYSICIAN: ALISSA GARRETT MD ECHOCARDIOGRAM REPORT ECHO CHARGES 4 ECHO COMPLETE Date: 10/28/19 CLINICAL DIAGNOSIS: DYSPNEA ECHOCARDIOGRAPHIC MEASUREMENTS (adult normal given) AC root (d.<3.7cm) 3.0 cm LV Septum d (<1.2 cm> 0.7 cm Valve Excursion 1.7 cm LV Septum (systole) 1.3 cm Left Atria (s.<4.0cm> 3.7 cm LVPW d(<1.2cm) 0.9 cm RV (d.<2.3cm) 3.1 cm LVPW (sytole) 1.1 cm LV diastole(<5.6CM) 4.7 cm MV E-F(>70mm/sec) cm LV systole 3.4 cm LVOT Diameter 1.6 cm MV exc.(>10mm) cm Est.ejection fraction (50-75%) % DOPPLER: LVIT cm/sec A 88 cm/sec E 105 cm/sec LA cm/sec RVSP 41.7 mmHg LVOT 152 cm/sec AOP1/2T m/s Asc. Ao 214 cm/sec RVOT 107 cm/sec RA cm/sec PA 106 cm/sec AV Gradient Peak 18.3 mmHg AV Mean 10.3 mmHg AV Area 1.6 cm MV Gradient Peak 6.5 mmHg MV Mean 4.2 mmHg MV Area cm COMMENTS: Stripping Machine Operator: Marshall [facility] Syrup Mixer Assistant: 1 Dr. Garrett TAPE# PACS Pericardial Effusion N DATE OF SERVICE: 10/28/2019 PROCEDURE: Echocardiogram. FINDINGS: 1. Left ventricular chamber size is within normal limits. Left ventricular systolic function is normal at 50%. 2. Left atrium, right atrium, and right ventricle chamber sizes are within normal limits. 3. Valvular structures have normal structure and motion. ECHOCARDIOGRAM REPORT [id number] AMBER MILLER 4. Doppler interrogation reveals no significant valvular insufficiency or stenosis. 5. No evidence of pericardial effusion or left ventricular thrombus. TRANSINT:[id number] Voice Confirmation ID: [id number] DOCUMENT ID: [id number] ALISSA GARRETT MD at 1125 CC: [id number] DICTATION DATE: 10/28/19 1430 BUTTER GRADER: 10/28/19 1732 DIS IN 10/31/19 [place] [id number] [place] [id number]
== END 2019-10-31 19:51 | disposition home health service (06) | DRG 871 ==
LOC: D.ER 14:17 → D.M2 18:40
PROVIDERS: Emergency Medicine; ADMIT Internal Medicine Nephrology; ATTEND Internal Medicine Nephrology
DX: A41.9 Sepsis, unspecified organism (principal); J96.22 Acute and chronic respiratory failure with hypercapnia; I50.33 Acute on chronic diastolic (congestive) heart failure; E11.10 Type 2 diabetes mellitus with ketoacidosis without coma; J18.9 Pneumonia, unspecified organism; J96.21 Acute and chronic respiratory failure with hypoxia; J44.1 Chronic obstructive pulmonary disease with (acute) exacerbation; E87.1 Hypo-osmolality and hyponatremia; I48.0 Paroxysmal atrial fibrillation; I27.20 Pulmonary hypertension, unspecified; I25.10 Atherosclerotic heart disease of native coronary artery without angina pectoris; G40.909 Epilepsy, unspecified, not intractable, without status epilepticus; I11.0 Hypertensive heart disease with heart failure; E66.01 Morbid (severe) obesity due to excess calories; Z68.36 Body mass index [BMI] 36.0-36.9, adult; D50.9 Iron deficiency anemia, unspecified; Z86.73 Personal history of transient ischemic attack (TIA), and cerebral infarction without residual deficits